=== PATIENT | female | born 1975 | race Caucasian/White ===

== ENCOUNTER 2017-12-06 10:58 | Emergency (ER) | payer BC, MEDICAID, SELFPAY ==
[2017-12-06 11:02] VITALS: BP 131/86; PULSE 90; RESP 16; TEMP 36.6; O2SAT 98
--- NOTE | 2017-12-06 12:25 | W.ED.GENAD ---
Discharge Plan Disposition Patient Disposition: HOME Condition: Stable Discharge Details Chief Complaint: RespSymp Clinical Impression: Infection, respiratory tract, Sinusitis Primary Care Provider: NONE,NONE ED Provider: Santosh Narayan Home Meds and New Rx's Prescriptions: New doxycycline hyclate 100 mg capsule 100 mg PO BID Qty: 14 RF: 0 Discharge Instructions Instructions: Sinusitis (ED), Upper Respiratory Infection (ED) Additional Instructions: Feel free to return to the emergency department for any new or worsening symptoms otherwise take your medication as prescribed. You may take [id number] cough and cold medication to help relieve your symptoms. If not improving towards the end of the antibiotics please follow-up with primary care provider for reassessment or return to the emergency department as needed. Referrals: Primary Care Provider [Outside] (As needed for reassessment ) Discharge Data Discharge Date/Time-TO BE ENTERED AT DEPARTURE: 12/06/17 12:40 Medical Decision Making Patient presenting to the emergency department for chief complaint of cough, nasal congestion, chills. Patient states that she has had a intermittent cough for 3 months but over the last 3 weeks she has had worsening nasal congestion, sinus pressure, and productivity to her cough. Patient states chills but has not measured any fever but has not felt well. Physical exam shows sinus tenderness, significant nasal congestion, and otherwise unremarkable examination. I feel that patient has upper respiratory tract infection and due to the fact that this is been going on greater than 3 weeks with chills and worsening chest congestion that patient should be placed on antibiotic. Patient placed up on doxycycline to cover both sinusitis and possible lower respiratory tract infection but at this time I hear clear lung sounds and no other respiratory issues so do not feel that radiological imaging of the chest is warranted. Patient states that she does not have a primary care provider as she typically had seen [facility] for any of her complaints but is open to getting a primary care provider in the area. Patient placed on care management list to help arrange this but I do not feel that patient needs emergent follow-up for diagnosis of sinusitis/respiratory tract infection. After discussion of diagnosis and plan of care patient has no further needs, questions, or concerns and states clear understanding to return to the emergency department for any worsening symptoms. HPI General Mode of arrival: ambulatory. Date/Time Provider Initiated Documentation: 12/06/17 11:46. Limitations to Documentation: no limitations. Information obtained by: patient. History of Present Illness 42 year old F presents to the emergency department with the chief complaint of Sinus infection,cough, described as moderate, with intensity rated at 7. Quality is described as dull and other (pressure), and is localized to the head. Patient reports no radiation. Patient started experiencing this week(s) (3) and it has been constant. No exacerbating factors reported . Patient did receive the following treatments prior to arrival, other (TheraFlu) Related Data Home Medications Medication Instructions Recorded Confirmed doxycycline hyclate 100 mg PO BID #14 cap 12/06/17 Previous Rx's Medication Instructions Recorded doxycycline hyclate 100 mg PO BID #14 cap 12/06/17 Allergies Allergy/AdvReac Type Severity Reaction Status Date / Time No Known Allergies Allergy Unverified 12/06/17 11:05 General Stated Complaint: RespSymp DEMARCO: 4 Review of Systems Constitutional Denies body ache(s), Reports chills, Denies fever(s), Reports headache(s) and Reports malaise Eyes Denies eye discharge ENT Reports headache(s), Reports nasal congestion, Reports nasal discharge, Denies neck pain, Reports sinus pain, Reports sinus pressure and Denies throat swelling Cardiovascular Denies chest pain and Denies dyspnea Respiratory Reports chest congestion, Reports cough and Denies dyspnea Musculoskeletal Denies joint swelling and Denies neck pain Integumentary/Breasts Denies rash Neurologic Reports headache(s) Allergic/Immunologic Denies throat swelling [facility] Medical History GERD (gastroesophageal reflux disease) (Chronic) Social History Smoking/Tobacco Use Status: Never Exam Const General: cooperative, comfortable and no acute distress Orientation: alert and awake [facility] Head: normal to inspection, normocephalic and atraumatic Ears: hearing grossly normal bilaterally and TM's normal bilaterally General nose exam: external nose normal Face and sinus: no erythema and sinus tenderness frontal and maxillary Mouth: oral mucosae normal, no drooling, no muffled voice and no trismus Throat: posterior oropharynx normal Neck Neck: normal visual inspection, full ROM, no lymphadenopathy, no meningeal signs, trachea midline and supple Resp Effort & Inspection: normal respiratory effort and able to speak in complete sentences Auscultation: clear to auscultation bilaterally Cardio Rate: regular rate Rhythm: regular rhythm Heart Sounds: S1 normal, S2 normal, normal S1 and S2, no click, no gallops, no murmurs and no rubs Skin General skin exam: no rashes or lesions noted and dry skin (warm) Neuro General: alert, awake, oriented x3, gait normal and moves all extremities Cognition: normal cognition Speech: speech normal Course Vital Signs Temperature 36.6 C 12/06/17 11:02 Pulse 90 12/06/17 11:02 Respiratory Rate 16 12/06/17 11:02 Blood Pressure 131/86 12/06/17 11:02 Pulse Oximetry 98 12/06/17 11:02 Temperature 36.6 C 12/06/17 11:02 Temperature Source Temporal Artery Scan 12/06/17 11:02 Pulse 90 12/06/17 11:02 Respiratory Rate 16 12/06/17 11:02 Respiratory Effort 12/06/17 11:05 Blood Pressure 131/86 12/06/17 11:02 Blood Pressure Position Sitting 12/06/17 11:02 Pulse Oximetry 98 12/06/17 11:02 Oxygen Delivery Method Room Air 12/06/17 11:02 Oxygen Flow Rate 0 12/06/17 11:02
--- NOTE | 2017-12-07 09:56 | PDOC.ERCMPRO ---
Care Management Progress Note 12/07-Patricio SEO requested assistance with establishing primary care. No PCP f/u needed. Would like patient to be established in a month. 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 Referral faxed to [facility] this am.
--- NOTE | 2017-12-07 09:57 | CMPROGNOTE_ITS ---
Care Management Progress Note 12/07-Patricio SEO requested assistance with establishing primary care. No PCP f/u needed. Would like patient to be established in a month. 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 Referral faxed to [facility] this am.
== END 2017-12-06 12:40 | disposition home or self-care (01) ==
PROVIDERS: Emergency Provider Nurse Practitioner Family
DX: J06.9 Acute upper respiratory infection, unspecified (principal); J01.90 Acute sinusitis, unspecified
CPT/HCPCS: 99283

== ENCOUNTER 2018-11-23 16:24 | Outpatient (REF) | payer BC, MEDICAID, SELFPAY ==
--- NOTE | 2018-11-23 15:15 | PAPFT_PTH ---
PATIENT: Melissa Barajas LOC: [facility] U#:[id number] AGE/SX: 43/F ROOM: RE11/23/[address]: MITCHELL Lazo : 1975 BED: DIS: 11/23/2018 SPEC #: [id number] RECD: 11/23/18 16:27 STATUS: JESICA REMoses #: [id number] ELIZABETH: 11/23/18 15:[address]: Sonya Perales DEPT: [facility] Cytology RECD BY: Jennifer Barbosa ENTERED: 11/23/18 16:27 SP TYPE: PAPFT JAKE DR: None Tissues: 1 - CX/ENDOCX FOR PAP SMEARS Procedures: PAP THIN PREP/UVM Screening HPV DNA PROBE Comments: [id number]
== END 2018-11-23 16:44 ==
LOC: LBN 16:24
PROVIDERS: Visit Provider Nurse Practitioner Family
DX: Z12.4 Encounter for screening for malignant neoplasm of cervix (principal); Z11.51 Encounter for screening for human papillomavirus (HPV)
CPT/HCPCS: 88142; 87624

== ENCOUNTER 2018-12-28 00:36 | Outpatient (CLI) | payer BC, MEDICAID, SELFPAY ==
--- NOTE | 2018-12-28 15:44 | DI.MAMMO_ITS ---
EXAM: MAMMO SCREENING CLINICAL HISTORY: screening TECHNIQUE: Mammograms were interpreted according to the usual protocol including computer analysis w [employer] CAD system, tomosynthesis and C-view imaging. COMPARISON: None. This is a baseline examination. FINDINGS: The breasts are composed of heterogeneously dense fibroglandular densities, Breast Density category C . No suspicious masses or suspicious microcalcifications are seen. There are innumerable partially obs cured circumscribed nodules in both breasts, right greater than left. The findings likely represent cysts. Ultrasound is recommended for further evaluation to exclude an underlying suspicious solid ma ss. No skin thickening or abnormal axillary lymph nodes are seen. IMPRESSION: BI-RADS Cat 0 - Assessment Incomplete: Need additional imaging evaluation Bilateral breast ultrasound is recommended for further evaluation of multiple areas of nodularity. BREAST DENSITY: The mammogram demonstrates the patient's breast tissue is dense. Dense breast tissue is very common and is not abnormal but dense breast tissue can make it harder to find cancer on a ma mmogram. Also, dense breast tissue may increase their breast cancer risk. This information about the result of the mammogram report was provided to the patient to raise their awareness. Use this report when you speak with the patient about their risks for breast cancer, which includes their family hist ory. At that time, you may recommend for more screening tests (Ultrasound or MRI) as they might be us eful based on their risk. A negative radiographic report should not delay biopsy if a dominant or clinically suspicious mass is present. Up to ten percent of cancers are not identified on mammography. A negative report may reinforce clinical impression. Adenosis and dense breasts may obscure an underlying neoplasm. False positive reports average 6 to 10%.
== END 2018-12-28 00:56 ==
PROVIDERS: Visit Provider Nurse Practitioner Family
DX: Z12.31 Encounter for screening mammogram for malignant neoplasm of breast (principal); R92.8 Other abnormal and inconclusive findings on diagnostic imaging of breast
CPT/HCPCS: 77063; 77067

== ENCOUNTER 2019-01-11 00:52 | Outpatient (CLI) | payer BC, MEDICAID, SELFPAY ==
--- NOTE | 2019-01-11 14:00 | DI.US_ITS ---
EXAM: US BREAST RT COMPLETE CLINICAL HISTORY: PARTIALLY OBSCURED NODULES ON BOTH BREASTS TECHNIQUE: Ultrasound performed using standard protocol. COMPARISON: MAMMO SCREENING from 12/28/2018 FINDINGS: All 4 quadrants of the right breast were evaluated sonographically. There are 2 simple cysts seen in the right breast. The largest is at the 12 o'clock position 2 centimeters from the nipple. It bruce ures 1.3 x 0.9 x 1.0 centimeters. No suspicious cystic or solid masses are seen in the right breast. IMPRESSION: Right breast cysts.
--- NOTE | 2019-01-11 14:00 | DI.US_ITS ---
EXAM: US BREAST LT COMPLETE CLINICAL HISTORY: PARTIALLY OBSCURED NODULES ON BOTH BREASTS TECHNIQUE: Ultrasound performed using standard protocol. COMPARISON: MAMMO SCREENING from 12/28/2018 FINDINGS: All 4 quadrants of the left breast were evaluated sonographically. No suspicious cystic or solid mas ses are seen sonographically in the left breast. Several unremarkable ducts are seen in the left shawanda ast. IMPRESSION: No suspicious cystic or solid masses. The findings were discussed with the patient on the date of the examination.
== END 2019-01-11 01:12 ==
PROVIDERS: Visit Provider Nurse Practitioner Family
DX: Z12.31 Encounter for screening mammogram for malignant neoplasm of breast (principal); R92.8 Other abnormal and inconclusive findings on diagnostic imaging of breast; N60.11 Diffuse cystic mastopathy of right breast; N60.82 Other benign mammary dysplasias of left breast
CPT/HCPCS: 76642

== ENCOUNTER 2020-02-06 03:21 | Outpatient (CLI) | payer MEDICAID, SELFPAY ==
--- NOTE | 2020-02-06 09:30 | DI.MAMMO_ITS ---
EXAM: MG MAMMO SCREENING CLINICAL HISTORY: screening. TECHNIQUE: Bilateral full field digital CC and MLO mammographic images were obtained with 3D tomosyn thesis and utilizing computer aided detection (CAD). COMPARISON: Prior baseline mammogram performed December 2018. Breast ultrasound December 2018 also reviewed. FINDINGS: The fibroglandular tissue is again noted to be dense which decreases the sensitivity of the mammogram for finding in underlying lesions. There is a new nodular density in the right breast measuring approximately 11 x 10 millimeters, best seen on the 3D MLO view located 3 centimeters above the nipple, approximately 12 o'clock position. O ther smaller densities also noted. In the opposite-left breast there is also suggestion a lobulated nodular density 12 o'clock position measuring approximately 1.4 by 0.8 centimetres. Benign-appearing microcalcifications noted both breasts. No obvious malignant-appearing microcalcification groups. There is no new architectural distortion nor skin thickening-retraction. IMPRESSION: Dense bilateral fibroglandular tissue. Bilateral nodules. Bilateral breast ultrasound recommended t o determine if these are solid or cystic.. BI-RADS Category 0 - Assessment Incomplete: Need additional imaging evaluation Breast Density - Category C - Heterogeneously dense Breast density Category C or D implies that the patient has dense breast tissue. Dense breast tissue can make it harder to find cancer on a mammogram. Dense breast tissue is also associated with an incr eased risk of breast cancer. This information about the result of the mammogram report was provided to the patient to raise their awareness. Use this report when you speak with the patient about their risks for breast cancer, which includes their family history. At that time, you may recommend additional screening tests (Ultrasoun d or MRI) as these tests may add significant information. A negative radiographic report should not delay biopsy if a dominant or clinically suspicious mass is present. Up to ten percent of cancers are not identified on mammography. A negative report may reinforce clinical impression. Adenosis and dense breasts may obscure an underlying neoplasm. False positive reports average 6 to 10%. Patient will receive a letter notifying them of these results.
== END 2020-02-06 03:41 ==
PROVIDERS: Visit Provider Nurse Practitioner Family
DX: Z12.31 Encounter for screening mammogram for malignant neoplasm of breast (principal); N63.20 Unspecified lump in the left breast, unspecified quadrant; N63.10 Unspecified lump in the right breast, unspecified quadrant
CPT/HCPCS: 77063; 77067

== ENCOUNTER 2020-02-14 03:55 | Outpatient (CLI) | payer MEDICAID, SELFPAY ==
--- NOTE | 2020-02-14 | DI.US_ITS ---
EXAM: US BREAST RT LIMITED and U/S breast LT limited CLINICAL HISTORY: F/U MAMMO, NEW NODULAR DENSITY TECHNIQUE: Ultrasound right and left breasts performed using standard protocol. COMPARISON: US US BREAST LT LIMITED from 02/14/2020 FINDINGS: Right breast ultrasound: Numerous simple cysts are seen at the 12 o'clock position of the right breas t. The largest measures 1.5 cm. This cyst corresponds to the mammographic abnormality. This was pr esent on the prior examination dated 01/11/2019. No suspicious cystic or solid masses are seen sonog raphically. Left breast ultrasound: There are numerous cysts seen in the left breast at the 12 o'clock position. They appear simple. The largest cyst measures 1.0 cm. The collection appears to correspond to the mammographic abnormality. No suspicious cystic or solid masses are seen sonographically. IMPRESSION: No evidence for malignancy. Multiple breast cysts. Yearly mammography is recommended. Findings wer e discussed with the patient on the date of the examination. BI-RADS Category 2 - Benign Findings DATA REPOSITORY:
== END 2020-02-14 04:15 ==
PROVIDERS: Visit Provider Nurse Practitioner Family
DX: R92.8 Other abnormal and inconclusive findings on diagnostic imaging of breast (principal); N60.02 Solitary cyst of left breast; N60.01 Solitary cyst of right breast
CPT/HCPCS: 76642

== ENCOUNTER 2020-04-02 09:29 | Outpatient (REF) | payer MEDICAID, SELFPAY ==
[2020-04-02 14:08] LABS: HCT 44.4 % (36.0-46.0); HGB 15.2 g/dL (11.2-15.7)
[2020-04-02 14:59] LABS: Anion Gap 11.6 mmol/L (3-11); BUN 21 mg/dL (7-18); CO2 23.4 mmol/L (21.0-32.0); CREATININE 0.8 mg/dL (0.55-1.02); Calcium 9.6 mg/dL (8.5-10.1); Calculated LDL 130 mg/dL (<100); Chloride 104 mmol/L (98-107); Cholesterol 227 mg/dL (<200); Glucose 129 mg/dL (74-106); HDL Cholesterol 77 mg/dL (40-60); Potassium 4.4 mmol/L (3.5-5.1); Sodium 139 mmol/L (136-145); Triglyceride 104 mg/dL (<150)
== END 2020-04-02 09:30 | disposition home or self-care (01) ==
LOC: NCHCN 09:29
PROVIDERS: Visit Provider Physician Assistant
DX: Z00.00 Encounter for general adult medical examination without abnormal findings (principal); Z13.220 Encounter for screening for lipoid disorders; Z13.228 Encounter for screening for other metabolic disorders; Z13.0 Encounter for screening for diseases of the blood and blood-forming organs and certain disorders involving the immune mechanism
CPT/HCPCS: 80048; 80061; 85014; 85018

== ENCOUNTER 2020-04-17 17:53 | Outpatient (REF) | payer MEDICAID, SELFPAY ==
[2020-04-17 18:19] LABS: Hemoglobin A1C 5.5 % (<5.7)
== END 2020-04-17 17:54 | disposition home or self-care (01) ==
LOC: NCHCN 17:53
PROVIDERS: PCP Physician Assistant; Visit Provider Physician Assistant
DX: R73.09 Other abnormal glucose (principal)
CPT/HCPCS: 83036

== ENCOUNTER 2020-08-07 15:24 | Outpatient (REF) | payer MEDICAID, SELFPAY ==
[2020-08-09 22:17] LABS: COVID-19 RT-PCR UVMMC Result Positive (Negative)
== END 2020-08-07 15:25 | disposition home or self-care (01) ==
LOC: LBN 15:24
PROVIDERS: PCP Physician Assistant; Visit Provider Physician Assistant Medical
DX: Z20.822 Contact with and (suspected) exposure to COVID-19 (principal)
CPT/HCPCS: U0003

== ENCOUNTER 2020-12-21 16:34 | Outpatient (REF) | payer MEDICAID, SELFPAY ==
[2020-12-21 20:14] LABS: ALT 31 U/L (14-59); AST 19 U/L (15-37); Albumin 3.7 g/dL (3.4-5.0); Alkaline Phosphatase 51 U/L (46-116); Anion Gap 9.5 mmol/L (3-11); BUN 11 mg/dL (7-18); Bilirubin, Total 0.3 mg/dL (0.2-1.0); CO2 26.5 mmol/L (21.0-32.0); CREATININE 0.8 mg/dL (0.55-1.02); Calcium 8.9 mg/dL (8.5-10.1); Chloride 106 mmol/L (98-107); Glucose 126 mg/dL (74-106); Lipase 121 U/L (73-393); Potassium 3.4 mmol/L (3.5-5.1); Sodium 142 mmol/L (136-145); Total Protein 6.7 g/dL (6.4-8.2)
[2020-12-21 20:31] LABS: HCT 42.7 % (36.0-46.0); HGB 14.3 g/dL (11.2-15.7); MCH 32.4 pg (27.0-33.0); MCHC 33.5 % (32.0-36.0); MCV 96.8 fL (80-95); MPV 12.7 fL (8.0-11.0); Platelet Count 214 10^3/uL (130-400); RBC 4.41 10^6/uL (3.93-5.22); RDW 11.7 % (11.7-14.6); RDW-SD 41.9 fL; WBC 7.95 10^3/uL (4.4-10.8)
== END 2020-12-21 16:35 | disposition home or self-care (01) ==
LOC: NCHCN 16:34
PROVIDERS: PCP Physician Assistant; Visit Provider Physician Assistant
DX: R10.9 Unspecified abdominal pain (principal)
CPT/HCPCS: 80053; 83690; 85027

== ENCOUNTER 2021-01-01 02:32 | Outpatient (CLI) | payer MEDICAID, SELFPAY ==
--- NOTE | 2021-01-01 08:00 | DI.US_ITS ---
Exam(s) US ABDOMEN EXAM: US ABDOMEN CLINICAL HISTORY: ABD PAIN R10.9 RUQ AND EPIGASTRIC PAIN W/ BOWEL CHANGES R/O CHOLECYSTITIS TECHNIQUE: Ultrasound abdomen performed using standard protocol. COMPARISON: No exams were available for comparison FINDINGS: LIVER: Normal size. Mildly increased echogenicity consistent with fatty infiltration. No focal live r lesions are seen.. GALLBLADDER: No evidence of cholelithiasis. No evidence of wall thickening. No pericholecystic fluid identified. GILLESPIE'S SIGN: Negative. BILIARY SYSTEM: No intrahepatic or extrahepatic biliary ductal dilation. KIDNEYS: Kidneys are symmetric in size. No evidence of renal calculi. No evidence of hydronephrosis. No renal mass or cyst identified. PANCREAS: Normal where visualized. SPLEEN: Not enlarged. ABDOMINAL AORTA AND IVC: Visualized portions normal caliber. ASCITES: None seen. IMPRESSION: Mild hepatic steatosis, otherwise normal sonographic appearance of the upper abdomen. DATA REPOSITORY:
== END 2021-01-01 02:52 ==
PROVIDERS: PCP Physician Assistant; Visit Provider Physician Assistant
DX: R10.11 Right upper quadrant pain (principal); R10.13 Epigastric pain; R19.4 Change in bowel habit; K76.0 Fatty (change of) liver, not elsewhere classified
CPT/HCPCS: 76700

== ENCOUNTER 2021-02-01 02:55 | Outpatient (CLI) | payer MEDICAID, SELFPAY ==
[2021-02-01 13:06] LABS: Source Nasal/Nares
[2021-02-01 17:11] LABS: COVID-19 PCR Negative (Negative)
== END 2021-02-01 02:56 | disposition home or self-care (01) ==
LOC: LBO 02:55
PROVIDERS: PCP Physician Assistant; Visit Provider Surgery
DX: Z20.822 Contact with and (suspected) exposure to COVID-19 (principal)
CPT/HCPCS: 87635

== ENCOUNTER 2021-02-03 09:15 | Day surgery (SDC) | payer MEDICAID, SELFPAY ==
--- NOTE | 2021-02-02 14:10 | W.ANESPRE ---
General Info Date of Service Date Performed: 02/03/21 Height: 5 ft 4 in Weight: 70.364 kg Body Mass Index (BMI): 26.6 Surgical Procedure: Operation Date: 02/03/21 11:05 Proposed Procedures Side Surgeon p Colonoscopy/Gastroscopy Emily Sanchez MD Meds Allergies and Home Medications Allergies Allergy/AdvReac Type Severity Reaction Status Date / Time No Known Drug Allergies Allergy Verified 02/03/21 09:34 Home Medication Medication Instructions Recorded pantoprazole 20 mg tablet,delayed 20 mg PO DAILY #90 tab 01/13/20 release Current Visit Medications: Current Medications Generic Name Dose Route Start Last Admin Trade Name Freq PRN Reason Stop Dose Admin Ringer's Solution 1,000 mls @ 80 mls/hr 02/03/21 06:00 IV 03/04/21 23:59 INFUSION ALPA IV Miscellaneous Supplies 1 each 02/03/21 06:00 Iv Access IV 03/04/21 23:59 DIRECTED ALPA Sodium Chloride 0 ml 02/03/21 06:00 Normal Saline Flush 10 Ml Syr IV 03/04/21 23:59 PRN PRN Sodium Chloride 0 ml 02/03/21 06:00 Normal Saline 10 Ml Vial IJ 03/04/21 23:59 DIRECTED PRN Sterile Water 0 ml 02/03/21 06:00 Water,Injection,Sterile 10 Ml Vial IJ 03/04/21 23:59 DIRECTED PRN PFSH Active Problems Active Problems: Problem Status Onset Code Encounter for colorectal cancer screening Z12.11, Z12.12 Elevated blood sugar R73.9 Abdominal pain R10.9 Medical History Active Problem List Elevated blood sugar (Acute) Abdominal pain (Acute) Medical History Alopecia areata GERD (gastroesophageal reflux disease) Surgical History Surgical History History of 2 sections History of hysterectomy supracervical History of hysterectomy, supracervical S/P tubal ligation Tobacco Smoking/Tobacco Use Status: Never Alcohol Alcohol Intake: current Alcohol intake frequency: a few times a month Substance Use Substance use: Never Substance use type: does not use Vital Signs and Lab Results Vital Signs Most Recent Vital Signs in EMR: Temp Pulse Resp BP Pulse Ox 36.4 C L 79 16 141/92 H 100 02/03/21 09:35 02/03/21 09:35 02/03/21 09:35 02/03/21 09:35 02/03/21 09:35 Lab Results Blood Type / Crossmatch: No Data to Display Complete Blood Count: No Data to Display Complete Metabolic Panel: No Data to Display Liver Function Panel: No Data to Display Coagulation Panel: No Data to Display Cardiac Panel: No Data to Display Arterial Blood Gas: No Data to Display Venous Blood Gas: No Data to Display Pancreas Panel: No Data to Display Thyroid Panel: No Data to Display Infectious Disease: Coronavirus (COVID-19)(PCR) Negative (Negative) 02/01/21 10:17 02/01/21 Coronavirus 2019 Source Nasal/Nares 02/01/21 10:17 02/01/21 Blood Cultures: No Data to Display Toxicology Panel: No Data to Display Panel: No Data to Display Anesthesia Assessment and Plan Anesthesia History Personal History: No History of Anesthesia Complications Family History: No Family History of Anesthesia Complications Exercise Tolerance Exercise Tolerance: Metabolic Equivalents>4 Cardiac & Pulmonary Exam Cardiac Exam: Normal S1/S2 Heart Sounds Pulmonary Exam: Clear Bilateral Breath Sounds Implantable Cardiac Device Does patient have a Pacemaker or an ICD?: No Airway Exam Known Difficult Airway: No Mallampati Class: 2 Mouth Opening: Normal (> 3cm) Thyromental Distance: Greater than 3 cm Neck Range of Motion: Full ROM Neck Circumference: Normal Teeth Condition: Normal Dentition ASA Classification ASA Score: ASA 2 Emergency Case?: No NPO Status NPO Status: NPO Clears >2 hours, Solids >8 hours Status Status: History of Hysterectomy Anesthesia Plan Resuscitation Status: Full Code Anesthesia Technique: General Anesthesia Airway Planned: Natural Airway Monitors Used: Standard Monitors Preoperative Comments:: 45 yo female for colo/egd. Sig PMHx: never smoker, occ EtOH, GERD (patoprazole) Previous Anes: jorgensen 2 grade 1, easy mask.
--- NOTE | 2021-02-03 06:43 | ENDO_ITS ---
Date of service: 02/03/21 Time of Service: 10: Endoscopy Report DATE OF PROCEDURE: 02/03/21 PRE-OP DIAGNOSIS: Abdominal pain and screening colonoscopy PROCEDURE: 1. EGD with biopsies 2. Colonoscopy SURGEON: Emily Sanchez ANESTHESIA TYPE: General:No Airway COMPLICATIONS: None DISPOSITION: same day INDICATIONS: Ms Barajas pleasant 45-year-old female with some upper abdominal pain that is intermittent. It does not seem to be related to food. She does have some bloating as well. Does have history of GERD which seems to be controlled with pantoprazole 20 mg daily. The differential includes biliary dyskinesia, versus gastritis. I recommend doing an upper endoscopy with biopsies. If this is negative then I will order HIDA scan to see if we can figure out why she is having this upper abdominal pain. Ms. Barajas is also due for colonoscopy so this would be a good time to do it. Both upper endoscopy and colonoscopy procedures were reviewed with her in detail. Risks and benefits and complications were reviewed. Risks, benefits and complications have been reviewed. Complications include but are not limited to bleeding, pain, perforation, missed small lesion/polyp, sore throat, aspiration and adverse reaction to the medications. Questions were entertained and answered to their satisfaction and they wished to proceed. No guarantees were given or implied. Proceed with colonoscopy and upper endoscopy under sedation PREP: Miralax/Dulcolax PROCEDURE START TIME: 10:26 PROCEDURE END TIME: 10:58 COLONOSCOPY RETRACTION TIME: 8 minutes FINDINGS: Inflammation of the stomach and esophagus Stomach polyps cecal polyps PROCEDURE DESCRIPTION: After informed consent was obtained the patient was take to the procedure room and placed in a supine position. Monitors were applied and a time out was done. The patients name, date of , procedure type, allergies to medications and metal in their body was reviewed. A bite block was placed and the patient was sedated. Once sedated and comfortable the gastroscope was advanced through the oropharynx which was grossly normal into the esophagus. The proximal and mid- esophagus were normal. In the distal esophagus there was inflammation noted. The scope was advanced into the stomach and through the pylorus into the 3rd portion of the duodenum. The duodenum was noted to be normal. The scope was retracted back into the stomach. There was moderate inflammation noted in the antrum and cardia. Biopsies were done to rule out H. pylori. There were no ulcers. The scope was retro-flexed. There were numerous flat polyps in the cardia and fundus. There was a small hiatal hernia noted. The scope was retracted back into the esophagus and biopsies were done of the GE junction to rule out Haque's. The Z line was regular. The GE junction was at 36 cm. While the patient was still sedated they were placed in a left decubitous position. A rectal exam was done. External exam was normal. Internal exam revealed a decreasedl sphincter tone and no palpable masses. The scope was then introduced and retro-flexed. NO internal hemorrhoids, masses or polyps were identified on retroflexion. The scope was then advanced to the cecum with some difficulty. The ileocecal valve and appendiceal orifice were identified. The prep was adequate. The scope was then slowly retracted over 8 minutes back into the rectum. Polyps were removed with cold forceps in the cecum. There was no diverticulosis noted. The scope was removed and the patient was woken up and taken back to Same day surgery in stable condition. The patient tolerated the procedure well and there were no immediate complications. Follow up: 2 weeks in the office
--- NOTE | 2021-02-03 06:44 | W.PM.DSUDISC ---
Discharge Plan Disposition Patient Disposition: HOME Condition: Good Discharge Details Reason For Visit: Colonoscopy and EGD Attending Provider: Emily Sanchez Primary Care Provider: Vladimir Moran Home Meds and New Rx's Prescriptions: New pantoprazole 40 mg tablet,delayed release (DR/EC) 40 mg PO DAILY Qty: 90 RF: 0 Discontinued pantoprazole 20 mg tablet,delayed release (DR/EC) 20 mg PO DAILY Qty: 90 RF: 0 Discharge Instructions Instructions: Diet for Stomach Ulcers and Gastritis (ED), Gastric Polyps (DC), Gastritis (DC), Esophagitis (DC), Colorectal Polyps (DC) Additional Instructions: Findings: Inflammation of the stomach and esophagus Small cecal polyp Follow up: 5 years Please call if you develop: fevers >101.5 Nausea or Vomiting Abdominal pain that is not transient Rectal bleeding that is more then a tbsp A hard abdomen and inability to pass gas DAY SURGERY UNIT POST ENDOSCOPY INSTRUCTIONS Instructions for everyone who is given Anesthesia: For your safety, please do the following for the next 24 Hours: a. Do not drive or operate dangerous equipment b. Do not drink alcohol beverages or use any recreational drugs for the first 24 hours or while taking pain medications. The medications in your body may have a reaction that can be dangerous. c. Do not make any important decisions or sign any important papers 1. Generally there are no restrictions on your activity after a day or so has gone by, but you may feel a bit fatigued for a few days. 2. After you arrive home you may have a light meal and return to a normal diet as you can tolerate it without feeling sick to your stomach. 3. After surgery, you may feel pain or discomfort. This should be only transient, but if it persists please contact your doctor. 4. If there are any questions regarding the findings of your procedure, please feel free to contact your doctor. 6. If you are unable to contact your doctor with a problem, contact the hospital at [phone]. 7. Continue all your regular medications unless directed otherwise. I understand the above instructions and have no questions. Signature of Patient or Responsible Adult Escort Date/Time Name of Responsible Adult Escort Signature of Nurse Date/Time Activity:: Activity as Tolerated Diet:: low acid Discharge Orders Discharge Orders: Discharge Order (Routine); Ordered 02/03/21 Ordered By: Emily Sanchez
[2021-02-03 09:35] VITALS: BP 141/92; PULSE 79; RESP 16; TEMP 36.4; O2SAT 100
[2021-02-03] MEDS: Lactated Ringers 1,000 ML 80 ML IV (10:02)
[2021-02-03 10:13] VITALS: BMI 26.6
--- NOTE | 2021-02-03 10:29 | STOM_PTH ---
PATIENT: Melissa Barajas LOC: [facility] U#:[id number] AGE/SX: 45/F ROOM: RE02/03/[address]: Emily Sanchez MD : 1975 BED: DIS: 02/03/2021 SPEC #: [id number] RECD: 02/03/21 12:46 STATUS: JESICA REQ #: [id number] ELIZABETH: 02/03/21 10:[address]: Emily Sanchez DEPT: Surgical Specimen RECD BY: Jennifer Barbosa ENTERED: 02/03/21 12:47 SP TYPE: STOMACH OTHR DR: Vladimir Moran Tissues: 1 - STOMACH BIOPSY 2 - STOMACH BIOPSY 3 - ESOPHAGUS BIOPSY 4 - BIOPSY BOWEL Procedures: GROSS AND MICRO LEVEL 4 Comments: [id number]
[2021-02-03 11:08] VITALS: BP 144/68; PULSE 82; RESP 16; TEMP 36.8; O2SAT 99
[2021-02-03 11:38] VITALS: BP 148/74; PULSE 67; RESP 16; TEMP 36.7; O2SAT 100
--- NOTE | 2021-02-03 11:42 | W.ANESPOSTOP ---
Postoperative Evaluation Date, Time and Location Date Performed: 02/03/21 Time Performed: 11:42 Patient Location: Day Surgery Unit Vital Signs Most Recent Imported Vital Signs: Most Recent Vital Signs Temp Pulse Resp BP Pulse Ox 36.7 C 67 16 148/74 H 100 02/03/21 11:38 02/03/21 11:38 02/03/21 11:38 02/03/21 11:38 02/03/21 11:38 Pain Score Most Recent Pain Score: Most Recent Pain Score Pain Level 0 02/03/21 11:38 Assessment Mental Status: Awake (Alert & Oriented to Patient Baseline) Airway and Respiratory Function: Patent airway with normal (patient baseline) respiratory exam Cardiovascular Function: Hemodynamically Stable Hydration Status: Adequately Hydrated Nausea & Vomiting: No Nausea or Vomiting Pain: Pt. Denies Any Pain Peripheral Nerve Block: Patient did not receive a nerve block
== END 2021-02-03 12:10 | disposition home or self-care (01) ==
PROVIDERS: PCP Physician Assistant; Visit Provider Surgery
PROC: (CPT 45380; principal; 2021-02-03 11:00)
DX: Z12.11 Encounter for screening for malignant neoplasm of colon (principal); D12.0 Benign neoplasm of cecum; K44.9 Diaphragmatic hernia without obstruction or gangrene; K31.7 Polyp of stomach and duodenum; R10.9 Unspecified abdominal pain
CPT/HCPCS: 45380; 43239; 88305; J2001; J2704

== ENCOUNTER 2021-03-26 01:55 | Outpatient (CLI) | payer MEDICAID, SELFPAY ==
--- NOTE | 2021-03-26 06:30 | DI.NM_ITS ---
Exam(s) NM HEPATOBILIARY CCK GRP EXAM: NM HEPATOBILIARY CCK GRP CLINICAL HISTORY: RUQ/Epigastric pain, neg EGD,r10.10. TECHNIQUE: Injected dose: 4.8 mCi Tc-99 mebrofenin Initial dynamic images: 60 minutes Post-Gallbladder fillin.1 mcg CCK administered intravenously a according to protocol. Addition images: According to protocol. COMPARISON: US US ABDOMEN from 01/01/2021 FINDINGS: Normal hepatic transit time. Prompt excretion into the small bowel. Prompt excretion into the gallbladder. The patient exhibited no symptoms during the CCK infusion. T he gallbladder ejection fraction was 84 percent which is within normal limits. IMPRESSION: 1. No evidence of acute cholecystitis or acalculous disease. 2. Normal CCK HIDA examination. SN guidelines: Gallbladder visualization should be present by 3 hours. Delayed mdfgwvx-hu-fmfet jones sit beyond 60 min raises the suspicion for partial common bile duct (CBD) obstruction. Gallbladder ejection fraction <35% has a good correlation with acalculous disease (i.e., chronic acal culous cholecystitis, cystic duct syndrome, sphincter of Oddi disease).
== END 2021-03-26 02:15 ==
PROVIDERS: PCP Physician Assistant; Visit Provider Surgery
DX: R10.10 Upper abdominal pain, unspecified (principal)
CPT/HCPCS: 78227

== ENCOUNTER → 2021-09-15 00:29 | Outpatient (CLI) | payer MEDICAID, SELFPAY ==
--- OUTSIDE RECORDS SUMMARY | 2021-09-15 00:30 | XMS_ITS | Encounter Summary ---
:1975 Author Organization [facility] [place] [address] Care Team Providers Name Role Phone None Primary Care Provider Unavailable Encounter Details Date Type Department Care Team Description 07/28/2021 Telephone Dermatology at [facility] Didier Husain MD [address] [facility] [place] [address] [facility] [phone] [place], [place] [address] (Wo rk) Social History Tobacco Use Types Packs/Day Years Used Date Never Smoker Smokeless Tobacco: Never Used Sex Assigned at Date Recorded Not on file documented as of this encounter Miscellaneous Notes Telephone Encounter - Mo Modi LPN - 07/30/2021 3:17 PM EDT Received the insurance benefit check back from [facility] about laser treatments for alopecia areata. [place] medicaid [place] ra laser treatment of alopeica areata. Not a covered benefit / diagnosis. MO MODI LPN Telephone Encounter - Mo Modi LPN - 07/28/2021 4:00 PM EDT PA and benefit check submitted today 07/28/21 to [facility]. Excimer uvb laser treatments ordered by Didier Centeno MD for alopecia areata. MO MODI LPN documented in this encounter Plan of Treatment Upcoming Encounters Date Type Specialty Care Team Description 10/04/2021 Office Visit Dermatology Didier Centeno MD [facility] [address] [place], [place] [address] (Wo rk) documented as of this encounter Visit Diagnoses Not on filedocumented in this encounter Care Teams Refrigeration Insulator Relationship Specialty Start Date End Date None PCP - General 04/09/21 None documented as of this encounter
--- OUTSIDE RECORDS SUMMARY | 2021-09-15 00:30 | XMS_ITS | Encounter Summary ---
:1975 [place] [address] Care Team Providers Name Role Phone Unavailable Primary Care Provider Unavailable Encounter Details Date Type Department Care Team Description 02/25/2021 [facility] [address] [facility] [place] [address] [place] [address] [phone] (Wo rk) Social History Tobacco Use Types Packs/Day Years Used Date Never Smoker Smokeless Tobacco: Never Used Sex Assigned at Date Recorded Not on file documented as of this encounter Progress Notes Didier Centeno MD - 02/25/2021 4:15 PM EST Images from the original note were not included. DEPARTMENT OF DERMATOLOGY Medical Dermatology Clinic Provider: Didier Centeno MD FAAD at Dermatology [facility] Patient's preferred name Melissa PAST MEDICAL HISTORY Melanoma Dysplastic nevi SCC BCC [place] [] cryotherapy [] efudex [] PDT [] Other Relevant Medications [] Immunosuppression [] Oncogenic medication [] Nicotinamide Other relevant history Alopecia Areata - ILK FAMILY HISTORY Melanoma NMSC Other relevant history SOCIAL HISTORY History of Present Illness: Melissa MONTGOMERY is 45 y.o. and here for the following: ??? History of alopecia areata s/p ILK here for follow-up. Tolerated ILK well. Possible improvement but cannot see. Antecedent History: History of patch??of spreading but asymptomatic hair loss on the left side of the scalp since Oct 2015. No known triggers. No history of autoimmune disorders. Never been biopsied.??Treated with ILK with excellent response.?? Medications: Reviewed in eD-H Allergies: Reviewed in eD-H Skin Examination Standby: Shanique Rosales LPN Well developed, well-nourished in no apparent distress, alert and oriented to time, person, place and situation. Focused examination of the skin of the scalp significant for the following: Exam Findings/Assessment/Plan Alopecia Areata Non-scaring 25 x 20mm and 10 x 10 mm patches of alopecia of the midline occipital scalp; similar 25 x 25 mm patch of non-scaring alopecia on the left parietal scalp. New villis and terminal hairs sincelast visit. Slight improvement. No atrophy. Recommend repeat ILK; reviewed major risks of skin atrophy. Answered all questions. Joint decision to treat with Kenalog ?? Total 3 sites treated with Kenalog 10mg/ml [Lot# [id number]/ Exp APR 2022], total 1.5 ml after verbally discussing the disease and treatment options, Kenalog IL method, expected results/course and potential adverse effects, including pain, dyspigmentation, atrophy, and recurrence. Patient verbally agre ed. Area prepped with alcohol. Blanching noted. Hemostasis achieved with drysol, as needed. Post-procedure pain 0/10. Patient tolerated well with no complications. Wound care instructions provided. Follow-up: 6 weeks for Alopecia F/U. Return sooner as needed for suspicious lesion, new or worseningdermatitis. [] Recall placed [] Forwarded to textile machine maintenance mechanic [x] Patient scheduled before exiting Scribe attestation: Shanique Rosales LPN has performed the documentation for this encounter in the presence of and acting as a scribe for MD LAWSON Regalado. I performed the above scribed service and agree with the accuracy of the documentation in this encounter. Reviewed and signed by: MD LAWSON Regalado Dermatology [facility] documented in this encounter Plan of Treatment Upcoming Encounters Date Type Specialty Care Team Description 10/04/2021 Office Visit Dermatology Didier Centeno MD [facility] [address] [place], [place] [address] (Wo rk) documented as of this encounter Visit Diagnoses Diagnosis Alopecia areata documented in this encounter
--- OUTSIDE RECORDS SUMMARY | 2021-09-15 00:30 | XMS_ITS | Clinical Summary ---
:1975 Author Organization [facility] [place] [address] Care Team Providers Name Role Phone None Primary Care Provider Unavailable Allergies No known active allergies Medications Medication Sig Dispensed Refills Start Date End Date Status pantoprazole EC TAKE 1 TABLET BY 0 02/03/2021 Active (Protonix) 40 mg MOUTH DAILY Tablet, Delayed Release (E.C.) amLODIPine (Norvasc) 10 Take 10 mg by 0 06/22/2021 Active mg Tablet mouth daily. Active Problems No known active problems Encounters Date Type Specialty Care Team Description 08/17/2021 Office Visit Dermatology Didier Centeno MD Alopec ia areata 07/28/2021 Telephone Dermatology Didier Centeno MD 07/20/2021 Office Visit Dermatology Didier Centeno MD Alopec ia areamable from Last 3 Months Social History Tobacco Use Types Packs/Day Years Used Date Never Smoker Smokeless Tobacco: Never Used Sex Assigned at Date Recorded Not on file Plan of Treatment Upcoming Encounters Date Type Specialty Care Team Description 10/04/2021 Office Visit Dermatology Didier Centeno MD [facility] [address] [place], [place] [address] (Wo rk) Health Maintenance Due Date Last Done Comments Covid-19 Vaccine (#1) 1978 HIV screen 10/25/1991 Hepatitis C Screening 10/25/1991 Tdap adult 1992 Tetanus vaccine 1992 HPV test 10/25/2003 Breast Cancer Share Decision Needed 2013 PAP Smear 06/17/2015 06/16/2010 Colonoscopy 2018 Influenza (Flu) vaccine (1 of - Influenza standard 10/28/2021 series) Insurance Payer Benefit Plan / Subscriber ID Effective Dates Phone Addre ss Type Group [place] [id number] 2019-Patrick [phone] [address] [place] [address] Care Teams District Sales Coordinator Relationship Specialty Start Date End Date None PCP - General 04/09/21 None
--- OUTSIDE RECORDS SUMMARY | 2021-09-15 00:30 | XMS_ITS | Encounter Summary ---
:1975 Author Organization [facility] [place] [address] Care Team Providers Name Role Phone Laquita Hernandez MD Primary Care Provider Reason for Visit Reason Comments Follow-up Encounter Details Date Type Department Care Team Description 08/01/2018 Office Visit Dermatology at [facility] Didier Centeno, Cedric Clark MD (Primary Dx) [address] [place] [address] [address] [phone] [facility] [place], [place] [address] Social History Tobacco Use Types Packs/Day Years Used Date Never Smoker Smokeless Tobacco: Never Used Sex Assigned at Date Recorded Not on file documented as of this encounter Progress Notes Didier Centeno MD - 08/01/2018 3:45 PM EDT Images from the original note were not included. Dermatology [place], [place] FOLLOW-UP Chief Complaint: Alopecia areata f/u - new spot History of Present Illness Melissa MONTGOMERY is a 42 y.o. female who presents with the following concerns: History of alopecia areata, s/p ILK with good response in the past. Patient notes onset of hair lossthat was first identified approximately a month ago by her hairstylist, thus patient returns for re-treatment of alopecia with ILK. Antecedent History: History of patch of spreading but asymptomatic hair loss on the left side of thescalp since Oct 2015. Started as a small bald patch. No symptoms. Some new growth in areas but spreading towards the back of the head. No redness or scale. No other areas of involvement. No known triggers. No history of autoimmune disorders. Never been treated or biopsied. Interval changes to Medications and Medical, Family and Social Histories (including alcohol and tobacco use) Since Last Visit 07/11/2017. No significant interval history. Skin Cancer History No personal history of skin cancer No family history of skin cancer Allergies Patient has no known allergies. Medications currently has no medications in their medication list. Social History Tobacco: never Alcohol: Occasionally Review of Systems Significant for no pertinent and acute changes in constitutional, other skin systems upon specific queries. Examination Standby: Mk Worthy Mood is appropriate. Well developed, well-nourished in no apparent distress, alert and oriented to time, person, place and situation. Focused skin examination of the scalp, significant for the following: ?? Nonscarring, 2.5 x 4 cm patch of alopecia on the midline occipital scalp Assessment and Plan Alopecia Areata Counseled: alopecia areata, autoimmune disease sometimes triggered by stress and a/w other autoimmune disorders, chronic and recurrent, and management with topical +/- IL steroids, excimer for localized patches, and systemic medications. Handout given. Answered all questions. ?? Total 1 treated with Kenalog 20 mg/ml (Lot #: [id number], Exp.: May 2019), total 1.0 ml after verbally discussing the disease and treatment options, Kenalog IL method, expected results/course and potential adverse effects, including pain, dyspigmentation, atrophy, and recurrence. Patient verbally agreed. Area prepped with alcohol. Blanching noted. Hemostasis achieved with drysol, as needed. Post-procedure pain 0/10. Patient tolerated well with no complications. Wound care instructions provided. Follow-up: in 3-4 weeks for alopecia follow-up or sooner as needed for worsening or new symptoms. Note initiated by KODY Carrasco has performed the documentation for this encounter in the presence of and acting as ascribe for Dr. Centeno. I performed the above scribed service and agree with the accuracy of the documentation in this encounter. Didier Centeno MD FAAD Section of Dermatology [facility] documented in this encounter Plan of Treatment Upcoming Encounters Date Type Specialty Care Team Description 10/04/2021 Office Visit Dermatology Didier Centeno MD [facility] ER [address] [place], [place] [address] (Wo rk) documented as of this encounter Visit Diagnoses Diagnosis Alopecia areata - Primary documented in this encounter Administered Medications Inactive Administered Medications - up to 3 most recent administrations Medication Order MAR Action Action Date Dose Rate Site triamcinolone acetonide Given 08/01/2018 4:24 PM EDT 40 mg (KENALOG-40) injection 40 mg 40 mg, Intra-Lesional, ONCE, 1 dose, On Mon08/01/18 at 1645, Routine documented in this encounter Care Teams Director Of Exhibits Relationship Specialty Start Date End Date Laquita Hernandez MD PCP - General Pediatrics 12/06/16 07/28/20 documented as of this encounter
--- OUTSIDE RECORDS SUMMARY | 2021-09-15 00:30 | XMS_ITS | Encounter Summary ---
:1975 Author Organization [facility] [place] [address] Care Team Providers Name Role Phone Laquita Hernandez MD Primary Care Provider Encounter Details Date Type Department Care Team Description 01/16/2017 Office Visit Dermatology at Alexx Aguilar MD Alopecia areata [facility] [address] [facility] [place] [address] [place] [address] [phone] (Wo rk) Social History Tobacco Use Types Packs/Day Years Used Date Never Smoker Smokeless Tobacco: Never Used Sex Assigned at Date Recorded Not on file documented as of this encounter Progress Notes Didier Centeno MD - 01/16/2017 4:00 PM EST Images from the original note were not included. Chief Complaint: Alopecia areata f/u - improved History of Present Illness Melissa MONTGOMERY is a 41 y.o. female. History of alopecia areata on the left parietal scalp s/p ILK 10mg/ml last visit with improvement - new terminal hairs. Tolerated ILK with no adverse effects. Antecedent History: History of alopecia areata on the left parietal scalp since Oct 2015. No rednessor scale. No other areas of involvement. No known triggers. No history of autoimmune disorders. Started ILK 10mg/ml Nov 2016. Never been biopsied. ? Denies Skin Cancer History No personal history of skin cancer. No family history of skin cancer. Allergies No Known Allergies Medications None Review of Systems Significant for no other pertinent and acute changes in constitutional, other skin systems upon specific queries. 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 Well developed, well-nourished in no apparent distress, alert and oriented to time, person, place and situation. Focused examination of the scalp, hair significant for the following: ?? 6 cm x 9 cm patch of nonscaring alopecia; 80% filled in with terminal of hairs but still slightlyhypodense Images Photo(s) taken by Rhonda Centeno MD. with patient's verbal permission for use for clinical and educationpurposes. 16 Jan 2017 06 Dec 2016 Assessment and Plan Alopecia Areata Improved. Reviewed: alopecia areata, autoimmune disease sometimes triggered by stress and a/w other autoimmunedisorders, chronic and recurrent. Recommend repeat ILK but could consider trial hiatus. Answered allquestions. Patient elects ILK. ?? Total 1 patch [10 injections] treated with Kenalog 10mg/ml [Lot # [id number] / EXP date April 2018],total 1.0 ml after verbally discussing the disease and treatment options, Kenalog IL method, expected results/course and potential adverse effects, including pain, dyspigmentation, atrophy, and recurrence. Patient verbally agreed. Area prepped with alcohol. Blanching noted. Hemostasis achieved with drysol, as needed. Post-procedure pain 0/10. Patient tolerated well with no complications. Wound care instructions provided. Follow-up: in 6-8 weeks or sooner as needed for worsening or new alopecia. Note initiated by MYRIAM BERMUDEZ LPN has performed the documentation for this encounter in the presence of and acting as a scribe for Dr. Centeno. I performed the above scribed service and agree with the accuracy of the documentation in this encounter. Didier Centeno MD FAAD Section of Dermatology [facility] documented in this encounter Plan of Treatment Upcoming Encounters Date Type Specialty Care Team Description 10/04/2021 Office Visit Dermatology Didier Centeno MD [facility] [address] [place], [place] [address] (Wo rk) documented as of this encounter Visit Diagnoses Diagnosis Alopecia areata documented in this encounter Administered Medications Inactive Administered Medications - up to 3 most recent administrations Medication Order MAR Action Action Date Dose Rate Site triamcinolone acetonide Given 01/16/2017 4:43 PM 10 mg 20-Other (document (KENALOG) injection 10 mg EST in comment sect ion) 10 mg, Intra-Lesional, ONCE, 1 dose, On 01/16/17 at 1700, Routine documented in this encounter Care Teams Cool Roofing Installer Relationship Specialty Start Date End Date Laquita Hernandez MD PCP - General Pediatrics 12/06/16 07/28/20 documented as of this encounter
--- OUTSIDE RECORDS SUMMARY | 2021-09-15 00:30 | XMS_ITS | Encounter Summary ---
:1975 Author Organization [facility] [place] [address] Care Team Providers Name Role Phone Laquita Hernandez MD Primary Care Provider Reason for Visit Reason Comments Skin Lesion Encounter Details Date Type Department Care Team Description 07/11/2017 Office Visit Dermatology at [facility] Alexx Centeno MD [facility] [address] [facility] [address] [place] [address] [phone] (Wo rk) Social History Tobacco Use Types Packs/Day Years Used Date Never Smoker Smokeless Tobacco: Never Used Sex Assigned at Date Recorded Not on file documented as of this encounter Progress Notes Didier Centeno MD - 07/11/2017 4:00 PM EDT Images from the original note were not included. DEPARTMENT DERMATOLOGY AT [facility] Dermatology At [facility] [address] [facility] [address] FOLLOW-UP Chief Complaint: Alopecia areata f/u - new spot History of Present Illness Melissa MONTGOMERY is a 41 y.o. female. History of alopecia areata who reports a new patch on the scalp noticed about Apr/May 2017. No symptoms. Never been treated. Interval changes to Medications and Medical, Family and Social Histories (including alcohol and tobacco use) Since Last Visit 02 May 2017: No significant interval history. Skin Cancer History No personal history of skin cancer No family history of skin cancer Allergies Review of patient's allergies indicates no known allergies. Medications currently has no medications in their medication list. Social History Tobacco: never Alcohol: Occasionally Review of Systems Significant for no pertinent and acute changes in constitutional, other skin systems upon specific queries. Examination Standby: Yonas Mendoza Mood is appropriate. Well developed, well-nourished in no apparent distress, alert and oriented to time, person, place and situation. Focused exam of the scalp, significant for the following: ?? 1 cm nonscarring patch of alopecia and the crown scalp right of midline Assessment and Plan Alopecia Areata, Scalp Improved. New 1cm patch. ?? Reviewed: alopecia areata, autoimmune disease sometimes triggered by stress and a/w other autoimmunedisorders, chronic and recurrent. Recommend repeat ILK but could consider trial hiatus. Answered allquestions. Patient elects ILK. ? Total 1 patch [10 injections] treated with Kenalog 10mg/ml [Lot # [id number] / EXP date ], total 1.0 ml after verbally discussing the disease and treatment options, Kenalog IL method, expected results/course and potential adverse effects, including pain, dyspigmentation, atrophy, and recurrence. Patient verbally agreed. Area prepped with alcohol. Blanching noted. Hemostasis achieved with drysol, as needed. Post-procedure pain 0/10. Patient tolerated well with no complications. Wound care instructions provided. Follow-up: 4 weeks or return to clinic prn for new suspicious lesions or if changes/symptoms in existing lesions develop. Note initiated by MYRIAM HAND has performed the documentation for this encounter in the presence of andacting as a scribe for Dr. Centeno. I performed the above scribed service and agree with the accuracy of the documentation in this encounter. Didier Centeno MD FAAD Section of Dermatology [facility] documented in this encounter Plan of Treatment Upcoming Encounters Date Type Specialty Care Team Description 10/04/2021 Office Visit Dermatology Didier Centeno MD [facility] [address] [place], [place] [address] (Wo rk) documented as of this encounter Visit Diagnoses Diagnosis Alopecia areata documented in this encounter Administered Medications Inactive Administered Medications - up to 3 most recent administrations Medication Order MAR Action Action Date Dose Rate Site triamcinolone acetonide (KENALOG) Given 07/11/2017 4:06 PM EDT 1 0 mg injection 10 mg 10 mg, Intra-Lesional, ONCE, 1 dose, On Mon07/11/17 at 1630, Routine documented in this encounter Care Teams Assistant Store Director Relationship Specialty Start Date End Date Laquita Hernandez MD PCP - General Pediatrics 12/06/16 07/28/20 documented as of this encounter
--- OUTSIDE RECORDS SUMMARY | 2021-09-15 00:30 | XMS_ITS | Encounter Summary ---
:1975 [place] [address] Care Team Providers Name Role Phone Unavailable Primary Care Provider Unavailable Encounter Details Date Type Department Care Team Description 04/08[facility]21 [facility] [address] [facility] [place] [address] [place] [address] [phone] (Wo rk) Social History Tobacco Use Types Packs/Day Years Used Date Never Smoker Smokeless Tobacco: Never Used Sex Assigned at Date Recorded Not on file documented as of this encounter Progress Notes Didier Centeno MD - 04/08/2021 4:00 PM EST Images from the original note were not included. DEPARTMENT OF DERMATOLOGY Medical Dermatology Clinic Provider: Didier Centeno MD FAAD at Dermatology [facility] Patient's preferred name Melissa PAST MEDICAL HISTORY (if blank, patient denies history) Melanoma Dysplastic nevi SCC [facility] [place] [] cryotherapy [] efudex [] PDT [] Other Relevant Medications [] Immunosuppression [] Transplant [] Oncogenic medication [] Nicotinamide 500mg po bid Other relevant history Alopecia Areata - ILK FAMILY HISTORY (if blank, patient denies history) Melanoma NMSC Other relevant history SOCIAL HISTORY History of Present Illness: Melissa MONTGOMERY is 45 y.o. and here for the following: ??? History of alopecia areata s/p ILK here for follow-up. Tolerating ILK well. Possible improvementin some areas but other areas notes no regrowth. Medications: Reviewed in eD-H Allergies: Reviewed in eD-H Skin Examination Standby: KODY Carrasco Well developed, well-nourished in no apparent distress, alert and oriented to time, person, place and situation. Focused examination of the skin of the scalp significant for the following: Exam Findings/Assessment/Plan Alopecia Areata 4x3 cm patch of nonscarring alopecia with ~40% filled in with new terminal hairs except for on the superior and left lower edge on the occipital scalp. Terminal hairs filling in left frontal scalp. Slight improvement on the occipital scalp and resolution on the left frontal sclap. Recommend repeat ILK at 40mg/ml given the lack of improvement on the occipital scalp at 10mg/ml; reviewed major and greater risk of skin atrophy with this higher concentration. Answered all questions. Joint decision to treat with Kenalog 40mg/ml. ?? Total 1 treated with Kenalog 40mg/ml [Lot# [id number]/ Exp MAY2022], total 0.6 ml after verbally discussing the disease and treatment options, Kenalog IL method, expected results/course and potential adverse effects, including pain, dyspigmentation, atrophy, and recurrence. Patient verbally agreed.Area prepped with alcohol. Blanching noted. Hemostasis achieved with drysol, as needed. Post-procedure pain 0/10. Patient tolerated well with no complications. Wound care instructions provided. Follow-up: 2 months for alopecia areata follow-up. Return sooner as needed for suspicious lesion, new or worsening dermatitis. [] Recall placed [] Forwarded to product safety technician [x] Patient scheduled before exiting Scribe attestation: KODY Carrasco has performed the documentation for this encounter in the presence of and acting as a scribe for MD LAWSON Regalado. I performed the above scribed service and agree with the accuracy of the documentation in this encounter. Reviewed and signed by: MD LAWSON Regalado Dermatology [facility] documented in this encounter Plan of Treatment Upcoming Encounters Date Type Specialty Care Team Description 10/04/2021 Office Visit Dermatology Didier Centeno MD [facility] [address] [place], [place] [address] (Wo rk) documented as of this encounter Visit Diagnoses Diagnosis Alopecia areata documented in this encounter Administered Medications Inactive Administered Medications - up to 3 most recent administrations Medication Order MAR Action Action Date Dose Rate Site triamcinolone acetonide Given 04/08/2021 4:16 PM EST 40 mg (Kenalog-40) (40 mg/mL) injection 40 mg 40 mg, Intra-Lesional, ONCE, 1 dose, On [place] 04/08/21 at 1645, Routine documented in this encounter
--- OUTSIDE RECORDS SUMMARY | 2021-09-15 00:30 | XMS_ITS | Encounter Summary ---
:1975 Author Organization [facility] [place] [address] Care Team Providers Name Role Phone Laquita Hernandez MD Primary Care Provider Reason for Visit Reason Comments Alopecia Encounter Details Date Type Department Care Team Description 03/11/2020 Office Visit Dermatology at [facility] Alexx Centeno MD [facility] [address] [facility] [place] [address] [place], [place] [id number] [phone] (Wo rk) Social History Tobacco Use Types Packs/Day Years Used Date Never Smoker Smokeless Tobacco: Never Used Sex Assigned at Date Recorded Not on file documented as of this encounter Progress Notes Didier Centeno MD - 03/11/2020 11:45 AM EST Images from the original note were not included. Dermatology Dermatology at [facility] FOLLOW-UP Chief Complaint: Alopecia areata flare History of Present Illness Melissa MONTGOMERY is a 44 y.o. female with history of alopecia areata who presents with the following concerns: ?? History of alopecia areata with flare on the back of the scalp. No symptoms or scaling. Here for ILK Antecedent History: History of patch??of spreading but asymptomatic hair loss on the left side of the scalp since Oct 2015. No known triggers. No history of autoimmune disorders. Never been biopsied. Treated with ILK with excellent response. Interval changes to Medications and Medical, Family and Social Histories (including alcohol and tobacco use) Since Last Visit 08/29/2019: No significant interval history. Skin Cancer History No personal history of skin cancer No family history of skin cancer Allergies Patient has no known allergies. Medications currently has no medications in their medication list. Review of Systems Significant for no pertinent and acute changes in constitutional, other skin systems upon specific queries. Examination Standby: Alexus Kimbrough CMA Well developed, well-nourished in no apparent distress, alert and oriented to time, person, place and situation. Focused examination of the skin of the scalp significant for the following: ?? Three 1-1.5 cm patches of non scarring alopecia on the mid occipital scalp Assessment and Plan Alopecia Areata Flaring in previous sites. Reviewed: alopecia areata, recommend ILK since she has had a great response in the past. Answered all questions. Patient agrees to plan. ?? Total 3 sites treated with Kenalog 10mg/ml [Lot# [id number] EXP: MAY 2021], total 1.0 ml after verbally discussing the disease and treatment options, Kenalog IL method, expected results/course and potential adverse effects, including pain, dyspigmentation, atrophy, and recurrence. Patient verbally agre ed. Area prepped with alcohol. Blanching noted. Hemostasis achieved with drysol, as needed. Post-procedure pain 0/10. Patient tolerated well with no complications. Wound care instructions provided. Follow-up: PRN or return to clinic prn for new suspicious lesions or if changes/symptoms in existinglesions develop. Note initiated by AN Jurado CMA has performed the documentation for this encounter in the presence of and acting as a scribe for Dr. Centeno. I performed the above scribed service and agree with the accuracy of the documentation in this encounter. Didier Centeno MD FAAD Section of Dermatology [facility] documented in this encounter Plan of Treatment Upcoming Encounters Date Type Specialty Care Team Description 10/04/2021 Office Visit Dermatology Didier Centeno MD [facility] [address] [place], [place] [address] (Wo rk) documented as of this encounter Visit Diagnoses Diagnosis Alopecia areata documented in this encounter Care Teams Shared Services And Outsourcing Manager Relationship Specialty Start Date End Date Laquita Hernandez MD PCP - General Pediatrics 12/06/16 07/28/20 documented as of this encounter
--- OUTSIDE RECORDS SUMMARY | 2021-09-15 00:30 | XMS_ITS | Encounter Summary ---
:1975 Author Organization [facility] [place] [address] Care Team Providers Name Role Phone Davidson Lopez MD Primary Care Provider Encounter Details Date Type Department Care Team Description 10/10/2016 Telephone Dermatology at [facility] None [address] [place] [address] Social History Tobacco Use Types Packs/Day Years Used Date Never Assessed Sex Assigned at Date Recorded Not on file documented as of this encounter Miscellaneous Notes Telephone Encounter - Joanne Wray - 10/10/2016 12:44 PM EDT I called joana last week 10/03 and forgot to note it. Home line was unavailable both times. I called the mobile number it was picked up than dropped. I will be sending out a letter. documented in this encounter Plan of Treatment Upcoming Encounters Date Type Specialty Care Team Description 10/04/2021 Office Visit Dermatology Didier Centeno MD [facility] [address] [place], [place] [address] (Wo rk) documented as of this encounter Visit Diagnoses Not on filedocumented in this encounter Care Teams Body Team Member Relationship Specialty Start Date End Date Davidson Lopez MD PCP - General 01/19/10 12/05/16 [address] [place] [address] documented as of this encounter
--- OUTSIDE RECORDS SUMMARY | 2021-09-15 00:30 | XMS_ITS | Encounter Summary ---
:1975 Author Organization [facility] [place] [address] Care Team Providers Name Role Phone Laquita Hernandez MD Primary Care Provider Reason for Visit Reason Comments Procedure Encounter Details Date Type Department Care Team Description 08/29/2019 Office Visit Dermatology at [facility] Didier Centeno [address]opec[address] MD (Primary Dx) [address] [place] [address] [address] [phone] [facility]-DERMATOLOGY [place], [place] [address] Social History Tobacco Use Types Packs/Day Years Used Date Never Smoker Smokeless Tobacco: Never Used Sex Assigned at Date Recorded Not on file documented as of this encounter Progress Notes Didier Centeno MD - 08/29/2019 4:40 PM EDT Images from the original note were not included. Dermatology Dermatology at [facility] FOLLOW-UP Chief Complaint: Alopecia areata f/u - improving History of Present Illness Melissa MONTGOMERY is a 43 y.o. female with history of alopecia areata who reports the following: ?? History of alopecia areata, s/p ILK 40 mg with significant hair regrowth but recurrent areas on the back of the scalp. Tolerated intralesional Kenalog well. Antecedent History: History of patch??of spreading but asymptomatic hair loss on the left side of the scalp since Oct 2015. Started as a small bald patch. No symptoms. Some new growth in areas but spreading towards the back of the head. No redness or scale. No other areas of involvement. No known triggers. No history of autoimmune disorders. Never been treated or biopsied. Interval Changes in Medications and Medical, Surgical Family, and Social Histories Since Last Visit 12/17/2018: No significant and pertinent interval changes. Skin Cancer History No personal history of skin cancer No family history of skin cancer Allergies Patient has no known allergies. Medications currently has no medications in their medication list. Social History Tobacco: never Alcohol: Occasionally?? Review of Systems Significant for no pertinent and acute changes in constitutional, other skin, musculoskeletal systems upon specific queries. Examination Standby: KODY Carrasco Mood is appropriate. Well developed, well-nourished in no apparent distress, alert and oriented to time, person, place and situation. Patient was asked to disrobe to the level of comfort. Examination of the head - including the scalp,face, ears, nose, lips - neck, chest, abdomen, back, axillae, buttocks, pubic area, upper and lower extremities, including the nail plates, significant for the following: ?? 2.5 x 2 cm patch of nonscarring alopecia on the midline, lower occipital scalp; 1 cm patch of nonscarring alopecia on the right occipital scalp; 1.3 cm patch of nonscarring alopecia on the left mid occipital scalp. Regrowth on the right occipital scalp. Assessment and Plan Alopecia areata Responding well to ILK. Joint decision to re-treat with high-dose ILK today. ?? Total 3 treated with Kenalog 40 mg/ml [Lot# [id number] / Exp APR 2019, total 0.7 ml after verbally discussing the disease and treatment options, Kenalog IL method, expected results/course and potentialadverse effects, including pain, dyspigmentation, atrophy, and recurrence. Patient verbally agreed. Area prepped with alcohol. Blanching noted. Hemostasis achieved with drysol, as needed. Post-procedure pain 0/10. Patient tolerated well with no complications. Wound care instructions provided. Follow-up: in 4 weeks if no regrowth felt on the back of the head or if she would like to have the occipital scalp reevaluated or sooner as needed for worsening alopecia or new dermatitis. Note initiated by KODY Carrasco CCMA has performed the documentation for this encounter in the presence of and acting as a scribe for Dr. Centeno. I performed the above scribed service and agree with the accuracy of the documentation in this encounter. Didier Centeno MD FAAD Section of Dermatology [facility] documented in this encounter Plan of Treatment Upcoming Encounters Date Type Specialty Care Team Description 10/04/2021 Office Visit Dermatology Didier Centeno MD [facility] ER [address] [place], [place] [address] (Wo rk) documented as of this encounter Visit Diagnoses Diagnosis Alopecia areata - Primary documented in this encounter Administered Medications Inactive Administered Medications - up to 3 most recent administrations Medication Order MAR Action Action Date Dose Rate Site triamcinolone acetonide Given 08/29/2019 1:48 PM EDT 40 mg (KENALOG-40) injection 40 mg 40 mg, Intra-Lesional, ONCE, 1 dose, On [place]ary 08/29/19 at 1330, Routine documented in this encounter Care Teams Tip Inserter Relationship Specialty Start Date End Date Laquita Hernandez MD PCP - General Pediatrics 12/06/16 07/28/20 documented as of this encounter
--- OUTSIDE RECORDS SUMMARY | 2021-09-15 00:30 | XMS_ITS | Encounter Summary ---
:1975 Author Organization [facility] [place] [address] Care Team Providers Name Role Phone Laquita Hernandez MD Primary Care Provider Reason for Visit Reason Comments Alopecia Encounter Details Date Type Department Care Team Description 05/02/2017 [facility] [address] MD (Primary Dx) [address] [place] [address] [address] [phone] [facility] [place], [place] [address] Social History Tobacco Use Types Packs/Day Years Used Date Never Smoker Smokeless Tobacco: Never Used Sex Assigned at Date Recorded Not on file documented as of this encounter Progress Notes Didier Centeno MD - 05/02/2017 4:00 PM EST Images from the original note were not included. Chief Complaint: Alopecia areata f/u - improved History of Present Illness Melissa MONTGOMERY is a 41 y.o. female. History of alopecia areata on the left parietal scalp s/p ILK 10mg/ml who reports much improvement but new spot on the left scalp. No symptoms.. Tolerated ILK with no adverse effects. Antecedent History: History of alopecia areata on the left parietal scalp since Oct 2015. No rednessor scale. No other areas of involvement. No known triggers. No history of autoimmune disorders. Started ILK 10mg/ml Nov 2016. Never been biopsied. Interval Changes in Medications and Medical, Surgical, Family and Social Histories Since Last Visit 16 Jan 2017: no significant or pertinent interval changes. Skin Cancer History No personal history of skin cancer. No family history of skin cancer. Allergies No Known Allergies Medications None Review of Systems Significant for no other pertinent and acute changes in constitutional, other skin systems upon specific queries. 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 Well developed, well-nourished in no apparent distress, alert and oriented to time, person, place and situation. Focused examination of the scalp, hair significant for the following: ?? 1 cm patch of non scarring alopecia on the left upper parietal scalp Images Photo(s) taken by Rhonda Centeno MD. with patient's verbal permission for use for clinical and educationpurposes. 02 May 2017 16 Jan 2017 06 Dec 2016 Assessment and Plan Alopecia Areata Improved. New 1cm patch. Reviewed: alopecia areata, autoimmune disease sometimes triggered by stress and a/w other autoimmunedisorders, chronic and recurrent. Recommend repeat ILK but could consider trial hiatus. Answered allquestions. Patient elects ILK. ?? Total 1 patch [10 injections] treated with Kenalog 10mg/ml [Lot # [id number] / EXP date April 2018],total 1.0 ml after verbally discussing the disease and treatment options, Kenalog IL method, expected results/course and potential adverse effects, including pain, dyspigmentation, atrophy, and recurrence. Patient verbally agreed. Area prepped with alcohol. Blanching noted. Hemostasis achieved with drysol, as needed. Post-procedure pain 0/10. Patient tolerated well with no complications. Wound care instructions provided. Follow-up: as needed for worsening or new alopecia. Note initiated by MYRIAM BERMUDEZ LPN has performed the documentation for this encounter in the presence of and acting as a scribe for Dr. Centeno. I performed the above scribed service and agree with the accuracy of the documentation in this encounter. Didier Centeno MD FAAD Section of Dermatology [facility] documented in this encounter Plan of Treatment Upcoming Encounters Date Type Specialty Care Team Description 10/04/2021 Office Visit Dermatology Didier Centeno MD [facility] ER [address] [place], [place] [address] (Wo rk) documented as of this encounter Visit Diagnoses Diagnosis Alopecia areata - Primary documented in this encounter Care Teams Field Marketing Lead Relationship Specialty Start Date End Date Laquita Hernandez MD PCP - General Pediatrics 12/06/16 07/28/20 documented as of this encounter
--- OUTSIDE RECORDS SUMMARY | 2021-09-15 00:30 | XMS_ITS | Encounter Summary ---
:1975 Author Organization [facility] [place] [address] Care Team Providers Name Role Phone Laquita Hernandez MD Primary Care Provider Encounter Details Date Type Department Care Team Description 12/17/2018 Office Visit Dermatology at [facility] Didier Centeno Alopecia areata Road MD (Primary Dx) [address] [place] [address] [address] [address] [phone] [facility] [place], [place] [address] Social History Tobacco Use Types Packs/Day Years Used Date Never Smoker Smokeless Tobacco: Never Used Sex Assigned at Date Recorded Not on file documented as of this encounter Progress Notes Didier Centeno MD - 12/17/2018 3:45 PM EDT Images from the original note were not included. Dermatology Dermatology at [facility] FOLLOW-UP Chief Complaint: Alopecia areata f/u - improving History of Present Illness Melissa MONTGOMERY is a 43 y.o. female History of alopecia areata, s/p ILK 40 mg with significant hair regrowth. Tolerated procedure well. Antecedent History: History of patch??of spreading [...] Family, and Social Histories Since Last Visit 09/19/2018: No significant and pertinent interval changes. Skin Cancer History No personal history of skin cancer No family history of skin cancer Allergies Patient has no known allergies. Medications currently has no medications in their medication list. Social History Tobacco: never Alcohol: Occasionally?? Review of Systems Significant for no pertinent and acute changes in constitutional, other skin, musculoskeletal systems upon specific queries. Examination Standby: Mk [...] nail plates, significant for the following: ?? 1 cm nonscarring patches of alopecia with scant, new, terminal hairs on the midline lower occipital scalp; 2 x 3 cm patch of nonscarring alopecia on the left lower occipital scalp and right upper occipital scalp. Assessment and Plan Alopecia areata Responding well to ILK. New patch irdent Joint decision to re-treat with ILK today. ?? Total 4 treated with Kenalog 40 mg/ml [Lot# [id number] / Exp FEB 2020], total 1.2 ml after verbally discussing the disease and treatment options, Kenalog IL method, expected results/course and potential adverse effects, including pain, dyspigmentation, atrophy, and recurrence. Patient verbally agreed.Area prepped with alcohol. Blanching noted. Hemostasis achieved with drysol, as needed. Post-procedure pain 0/10. Patient tolerated well with no complications. Wound care instructions provided. Follow-up: in 6 weeks for alopecia areata follow-up or sooner as needed for worsening alopecia or new dermatitis. Note initiated by KODY Carrasco Mk Zaynab has performed the documentation for this encounter in the presence of and acting as ascribe for Dr. Centeno. I performed the above scribed service and agree with the accuracy of the documentation in this encounter. Didier Centeno MD FAAD Section of Dermatology [facility] documented in this encounter Plan of Treatment Upcoming Encounters Date Type Specialty Care Team Description 10/04/2021 Office Visit Dermatology Didier Centeno MD [facility] ER [address]RI[address] [place], [place] [address] (Wo rk) documented as of this encounter Visit Diagnoses Diagnosis Alopecia areata - Primary documented in this encounter Administered Medications Inactive Administered Medications - up to 3 most recent administrations Medication Order MAR Action Action Date Dose Rate Site triamcinolone acetonide Given 12/17/2018 4:30 PM EDT 40 mg (KENALOG-40) injection 40 mg 40 mg, Intra-Lesional, ONCE, 1 dose, On 12/17/18 at 1645, Routine documented in this encounter Care Teams Cylinder Press Feeder Relationship Specialty Start Date End Date Laquita Hernandez MD PCP - General Pediatrics 12/06/16 07/28/20 documented as of this encounter
--- OUTSIDE RECORDS SUMMARY | 2021-09-15 00:30 | XMS_ITS | Encounter Summary ---
:1975 Author Organization [facility] [place] [address] Care Team Providers Name Role Phone Davidson Lopez MD Primary Care Provider Encounter Details Date Type Department Care Team Description 06/16/2010 Hospital Encounter Laboratory [facility] [address] [place] [address] [place] [address] [phone] (Wo rk) Social History Tobacco Use Types Packs/Day Years Used Date Never Assessed Sex Assigned at Date Recorded Not on file documented as of this encounter Medications at Time of Discharge Medication Sig Dispensed Refills Start Date End Date Miconazole Powd apply to skin area, 0 11/11/2004 12/06/2016 Misc, Twice daily multivitamin (DAILY 0 11/08/200412/06 MULTIPLE) tablet cimetidine (TAGAMET) 400 0 11/08/2004 12/06/2016 mg tablet documented as of this encounter Plan of Treatment Upcoming Encounters Date Type Specialty Care Team Description 10/04/2021 Office Visit Dermatology Didier Centeno MD [facility] ER [address] [place], [place] [address] (Wo rk) documented as of this encounter Procedures Procedure Name Priority Date/Time Associated Diagnosis Comme nts SOFTWARE LICENSING SPECIALIST CYTOLOGY FINAL Routine 06/16/2010 8:00 PM Res ults for this REPORT EDT procedure are i n the results section. documented in this encounter Results SOFTWARE LICENSING SPECIALIST CYTOLOGY FINAL REPORT (06/16/2010 8:00 PM EDT) Component Value Ref Test Analysis Performed At [facility] gist Range Method Time Signature Director Machine Cytology CERNER Final Report ? [facility] ? Provider: ?? PRIYANKA THOMAS ? Pt. Name: ?? MELISSA GOLDBERG ? Acc #: ?[id number] ?Pt. MRN: ?[id number] ? Col Date: ?? 1 ? /Sex: ?1975,(34 years),Female ? Rec Date: ?? 06/21/2010 ? LOC: ?[facility] ? CYTOPATHOLOGY: ??SOFTWARE LICENSING SPECIALIST ? ---Adequacy--- ? Specimen submitted is satisfactory. ? Endocervical component present. ? ---Cytopathologic Diagnosis--- ? NORMAL ? Negative for Intraepithelial Lesion or Malignancy (NI LM). ? 06/24/10 ?? Screened by: ??[facility] ? 06/24/10 ?? Verified by: ??Brennan PARK(ASCP) , Charlene Davidson - Analytic Manager ? ---Clinical Information--- ? Hormones?: ?No ? Hysterectomy?: ?No ?: ?No ?: ?No ? I.U.D.?: ?No ? Pelvic Radiation: ? No ? Prior SOFTWARE LICENSING SPECIALIST Therapy?: ? No ? Hist Abnl Pap/Biopsy?: ??No ? HPV Option: ? Reflex HPV ? Specimen Source: ?Cervical Endocervical LBP ? Preparation: ?Liquid Based Pap ? LMP: ?05/31/2010 ? Hist of HPV Vaccine?: ?? (not provided) ? Hist of Smoking?: ? (not provided) ? Hist of CHRIS exposure?: ??(not provided) ? Clinical Data, Significant Therapy and Clinical Impre ssion: ?_ ? This Pap Test has bee n evaluated with the assistance of the ThinPrep Pap ? Test Imaging System. ? Note: ? The Pap test is a screening test for cervical c ancer with an inherent ? false-negative rate dependent upon several variables. ??For further ? information please contact the [facility] Laboratory. ? [facility] ? Provider: ?? PRIYANKA THOMAS ? Pt. Name: ?? MELISSA GOLDBERG ? Acc #: ?[id number] ?Pt. MRN: ?[id number] ? Col Date: ?? 1 ? /Sex: ?1975,(34 years),Female ? Rec Date: ?? 06/21/2010 ? LOC: ?[facility] ? CYTOPATHOLOGY: ??SOFTWARE LICENSING SPECIALIST ? Reference: ??Abwallyrot h CS. ??Fitness Studies Teacher of Pap Smear Results. ??In: ? Silviano BS, Noel HH, ed. ??The Pap Smear. ??[place]: ??Bro, 2002: ? 71-77. Specimen (Source) Anatomical Collection Method Collection Time Re ceived Time Location / / Volume Laterality 06/16/2010 8:00 PM EDT Priyanka Thomas [facility]CYT[facility]Y ORDERABLE S Performing Organization Address City/State/ZIP Code Phon e Number [address] [facility] documented in this encounter Visit Diagnoses Not on filedocumented in this encounter Care Teams Footwear Sales Leader Relationship Specialty Start Date End Date Davidson oLpez MD PCP - General 01/19/10 12/05/[address] [place] [id number] documented as of this encounter
--- OUTSIDE RECORDS SUMMARY | 2021-09-15 00:30 | XMS_ITS | Encounter Summary ---
:1975 Author Organization [facility] [place] [address] Care Team Providers Name Role Phone Laquita Hernandez MD Primary Care Provider Reason for Visit Reason Comments Alopecia Encounter Details Date Type Department Care Team Description 12/06/2016 Office Visit Dermatology at [facility] Didier Centeno [facility] Amber MAY (Primary Dx) [address] [place] [address] [facility] [place] [place] [address] Social History Tobacco Use Types Packs/Day Years Used Date Never Smoker Smokeless Tobacco: Never Used Sex Assigned at Date Recorded Not on file documented as of this encounter Progress Notes Didier Centeno MD - 12/06/2016 3:00 PM EDT Images from the original note were not included. DEPARTMENT DERMATOLOGY AT [facility] Dermatology At [facility] [address] [facility] [address] NEW PATIENT Chief Complaint: large patch of hair loss on left scalp History of Present Illness Melissa MONTGOMERY is a 41 y.o. female. Complains of patch of spreading but asymptomatic hair loss on the left side of the scalp since Oct 2015. Started as a small bald patch. No symptoms. Some new growth in areas but spreading towards the back of the head. No redness or scale. No other areas of involvement. No known triggers. No history ofautoimmune disorders. Never been treated or biopsied. ? Denies Skin Cancer History No personal history of skin cancer. No family history of skin cancer. Allergies No Known Allergies Medications None Review of Systems Significant for no other pertinent and acute changes in constitutional, other skin systems upon specific queries. 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 Well developed, well-nourished in no apparent distress, alert and oriented to time, person, place and situation. Skin Type: II. Focused examination of the head - including the scalp, hair, eyebrows/eyelashes, face significant for the following: ?? 6 cm x 9 cm patch of nonscaring Alopecia: 60% filled in with terminal of hairs and smallpatch of Vellous Hairs. Assessment and Plan Alopecia Areata Localized to the left scalp with areas of new terminal hair growth without treatment, but spreading.Recommend treatment with ILK on the areas of villus hairs. Counseled: alopecia areata, autoimmune disease sometimes triggered by stress and a/w other autoimmune disorders, chronic and recurrent, and management with topical +/- IL steroids, excimer for localized patches, and systemic medications. Handout given. Answered all questions. Total 1 patch (3 areas) treated with Kenalog 10mg/ml, total 1.0 ml after verbally discussing the disease and treatment options, Kenalog IL method, expected results/course and potential adverse effects,including pain, dyspigmentation, atrophy, and recurrence. Patient verbally agreed. Area prepped withalcohol. Blanching noted. Hemostasis achieved with drysol, as needed. Post- procedure pain 0/10. Patient tolerated well with no complications. Wound care instructions provided. Follow-up: in 3 weeks or sooner as needed for worsening or new dermatitis. Note initiated by MYRIAM MARIE LPN has performed the documentation for this encounter in the presence of and acting asa scribe for Dr. Centeno. I performed the above scribed service and agree with the accuracy of the documentation in this encounter. Didier Centeno MD FAAD Section of Dermatology [facility] documented in this encounter Plan of Treatment Upcoming Encounters Date Type Specialty Care Team Description 10/04/2021 Office Visit Dermatology Didier Centeno MD [facility] ER [address] [place], [place] [address] (Wo rk) documented as of this encounter Visit Diagnoses Diagnosis Alopecia areata - Primary documented in this encounter Care Teams Lever Operator Relationship Specialty Start Date End Date Laquita Hernandez MD PCP - General Pediatrics 12/06/16 07/28/20 documented as of this encounter
--- OUTSIDE RECORDS SUMMARY | 2021-09-15 00:30 | XMS_ITS | Encounter Summary ---
:1975 Author Organization [facility] [place] [address] Care Team Providers Name Role Phone Unavailable Primary Care Provider Unavailable Encounter Details Date Type Department Care Team Description 04/08/2021 Travel Social History Tobacco Use Types Packs/Day Years Used Date Never Smoker Smokeless Tobacco: Never Used Sex Assigned at Date Recorded Not on file documented as of this encounter Plan of Treatment Upcoming Encounters Date Type Specialty Care Team Description 10/04/2021 Office Visit Dermatology Didier Centeno MD [facility] [address] [place], [place] [address] (Wo rk) documented as of this encounter Visit Diagnoses Not on filedocumented in this encounter
--- OUTSIDE RECORDS SUMMARY | 2021-09-15 00:32 | XMS_ITS | Encounter Summary ---
:1975 Author Organization [facility] Address [address] [place] [address] Care Team Providers Name Role Phone Vladimir Moran KAREN Primary Care Provider [phone] Leticia Franklin MD Unavailable Unavailable Encounter Details Date Type Department Care Team Description 02/03/2021 Lab Requisition [facility] Daljit Sanchez for other Pathology & MD Janet general examination Laboratory Medicine [id number] [place] [id number] Social History Tobacco Use Types Packs/Day Years Used Date Never Assessed Sex Assigned at Date Recorded Not on file documented as of this encounter Plan of Treatment Not on filedocumented as of this encounter Procedures Procedure Name Priority Date/Time Associated Diagnosis Comme nts SURGICAL PATHOLOGY Today 02/03/2021 10:29 Encounter for othe r Results for this EST general examination procedur e are in the results section. documented in this encounter Results SURGICAL PATHOLOGY (02/03/2021 10:29 EST) Note to Patient The following [facility] pathology results have CENTER been interpreted by LABORATORY your pathologist and SERVICES may be available to you before your health provider has had the opportunity to review them. Please allow time for your provider to receive these results and explore management options, if applicable. Final Diagnosis A. STOMACH, ANTRUM/BODY, BIOPSY: [facility] ED[facility] - Antral-type mucosa with no significant diagnostic ab normality. CENTER - Oxyntic-type mucosa with no significant diagnostic a bnormality. LABORATORY SERVICES B. STOMACH, CARDIA, BIOPSY: - Oxyntic-type mucosa with no significant diagnostic a bnormality. C. GASTROESOPHAGEAL JUNCTION, BIOPSY: - Squamocolumnar junctional mucosa with reactive blevins es. - Negative for intestinal metaplasia. - Negative for dysplasia. D. COLON, CECUM, BIOPSY: - Tubular adenoma. Attestation By the signature [facility] Electronica lly below, the attending CENTER signed by Jose Manuel, physician certifies LABORATORY Jude Momin MD on that they have 1) SERVICES 02/05/2021 at 1042 personally conducted a gross and/or microscopic examination of the described specimen(s), and/or personally interpreted the results of laboratory testing of the described specimen(s), and 2) personally rendered or confirmed the above diagnosis. Clinical History Abdominal pain; polyp [facility] SERVICES Gross Description A. [facility] Received in formalin kaleb d with proper patient identification (initials M, A) and 1. Antrum Bx + body are 3 page-brown tissues (0.5 x 0.3 x 0.2 cm to 0.6 x 0.4 x 0.2 cm). Entirely submitted in A1. CENTER LABORATORY B. SERVICES Received in formalin kaleb d with proper patient identification (initials M, A) and 2. Cardia is a page-brown tissue (0.6 x 0.2 x 0.1 cm). Entirely submitted in B1. C. Received in formalin kaleb d with proper patient identification (initials M, A) and 3. GE junction are 2 white-page tissues (0.3 x 0.3 x 0.1 cm and 0.6 x 0.2 x 0.1 cm). Entirely submitted in C1. D. Received in formalin kaleb d with proper patient identification (initials M, A) and 4. Cecal polyp is a page-brown tissue (0.6 x 0.2 x 0.1 cm). Entirely submitted in D1. ISABELL MARIE(ASCP) 02/04/2021 7:53 Performing Lab [facility] LAB [facility]OR[facility] SERVICES Scanned Images [facility]OR[facility] SERVICES Specimen Tissue - Cecum structure (body structure ) Tissue specimen (specimen) - Entire stom ach (body structure) Tissue specimen (specimen) - Entire esop hagus (body structure) Tissue specimen (specimen) - Cecum struc ture (body structure) Performing Organization Address City/State/ZIP Code Phon e Number [facility] [address] [place] [address] SERVICES documented in this encounter Visit Diagnoses Diagnosis Encounter for other general examination documented in this encounter Care Teams Vice President Of News Relationship Specialty Start Date End Date Vladimir Moran, KAREN PCP - General 12/28/[address] [place] [id number] Leticia Franklin MD 12/28/20 documented as of this encounter
--- OUTSIDE RECORDS SUMMARY | 2021-09-15 00:32 | XMS_ITS | Encounter Summary ---
:1975 Author Organization [facility] Address [address] [place] [address] Care Team Providers Name Role Phone Unknown, Provider Primary Care Provider Encounter Details Date Type Department Care Team Description 08/11/2014 Results Only [facility] Aviva Franklin MD [phone] [place] [address] Social History Tobacco Use Types Packs/Day Years Used Date Never Assessed Sex Assigned at Date Recorded Not on file documented as of this encounter Plan of Treatment Not on filedocumented as of this encounter Procedures Procedure Name Priority Date/Time Associated Diagnosis Comme nts PAP TEST- RESULT Routine 08/11/2014 0:00 EDT Resu lts for this ONLY procedure are i n the results section. documented in this encounter Results PAP TEST- RESULT ONLY (08/11/2014 0:00 EDT) Pathology Report: CYTOPATHOLOGY REPORT [facility] Reports generated via electronic interface contain ryne ginal data; SERVICES however they are lacking the format of the original re port. Caution should be taken when reading/interpreting unfo rmatted reports. Name: ? MELISSA GOLDBERG ? Accession #: ? [id number] ? : ? 1975 (Age: 2 0) ??F ?Collect Date: ? 08/11/2014 ? Location: ? [facility] ? Receive Date: ? 08/13/19 15 ? Provider: AVIVA FRANLKIN MD Copy to: ? Final Report SPECIMEN ADEQUACY ? Satisfactory for Evaluation - transformation zone component present GENERAL CATEGORIZATION ? Negative for Intraepithelial Lesion or Malignan cy ?? Last Menstrual Period: 08/02/14 Other: Additional clinical i nformation: negative pap history, last pap 10 years ago Specimen/Source: ??Pap Test, Cervix/Endocervix, ThinPr ep Imaging System with manual evaluation Document reviewed and electronically signed by: ? Karen Stahl, CT(ASCP) ? Report ??Date: 08/19/2014 08:45 HPV with Pap Test ? Date Ordered: ? 08/19/2014 ? Status: ?? Signed Out ?Date Complete: ? 08/21/2014 ? By: ??Sy stem Interface ? Date Reported: ? 08/21/2014 ? Interpretation RESULT: Negative for HPV. No E6 or E7 mRNA is detected from HPV types 16,18,31,3 3,35, 39,45,51,52,56,58,59,66, and 68 by flare breaker media latasha amplification. Comments Document reviewed and electronically signed by: ? System Interface ? Report date: 08/21/2014 By the signature above, the attending physician certif ies that he/she has personally conducted a gross and/or microscopic examin ation of the described specimens and rendered or confirmed the above diagnosi s. End of Report Specimen Performing Organization Address City/State/ZIP Code Phon e Number [facility] [address] [place] [address] SERVICES documented in this encounter Visit Diagnoses Not on filedocumented in this encounter Care Teams Lead Recoverer Relationship Specialty Start Date End Date Unknown, Provider, PCP - General 08/12/14 01/05/15 documented as of this encounter
--- OUTSIDE RECORDS SUMMARY | 2021-09-15 00:32 | XMS_ITS | Encounter Summary ---
:1975 Author Organization [facility] Address [address] [place] [address] Care Team Providers Name Role Phone Leticia Franklin MD Primary Care Provider Unavailable Vladimir Moran RPA Primary Care Provider [phone] Leticia Franklin MD Unavailable Unavailable Encounter Details Date Type Department Care Team Description 08/08/2020 Lab Requisition [facility] Outr Resulting Lab, Pathology & Laboratory Provider [facility] [address] [place] [address] Social History Tobacco Use Types Packs/Day Years Used Date Never Assessed Sex Assigned at Date Recorded Not on file documented as of this encounter Plan of Treatment Not on filedocumented as of this encounter Procedures Procedure Name Priority Date/Time Associated Diagnosis Comme nts COVID-19 TEST [facility] Today 08/07/2020 13:45 LAB PCR EDT COVID-19 TESTING Routine 08/07/2020 13:45 Results for this EDT procedure are i n the results section. documented in this encounter Results COVID-19 TEST [facility] LAB PCR (08/07/2020 13:45 EDT) Specimen Swab - Entire nasopharynx (body structur e) Performing Organization Address City/State/ZIP Code Phon e Number [facility] [address] [place] [address] SERVICES (ABNORMAL) COVID-19 TESTING (08/07/2020 13:45 EDT) COVID-19 rt-PCR Positive (AA) Negative [facility] Result Comment: [facility] This test has not been FDA c leared or approved. This test has been authorized by FDA under an EUA for use by authorized laboratories. This test has been authorized only for detection of nucleic acid fro SERVICES m 2019-nCoV, not for any oth er viruses or pathogens. This test is only authorized for the duration of the declaration that circumstances exist justifying the authorization of emergency use of in vitro d iagnostic tests for detectio n and/or diagnosis of 2019-nCoV under section 564(b)(1) of Act, 21 U.S.C ?? 360bbb-3(b) (1), unless the authorization is terminated or revoked sooner. This test was developed and its performance characteristics determined by [facility]. It has not been cleared or approved by the US Food and Drug Administration. FDA does not require this test to go through premarket FDA review. This t est is used for clinical purposes. It should not be regarded as investigational or for research. This laboratory is certified under the Clinical Laboratory Improvement Amendm ents (CLIA) as qualified to perform high complexity clinical laboratory testing. This test is based on the CD C COVID-19 Emergency Use Authorization (EUA) assay, with minor modification as defined by the FDA Performed on the Fluidinfoo 7 Pro RT-PCR System. Performing Lab [facility] Lab [facility] SERVICES Specimen Swab Performing Organization Address City/State/ZIP Code Phon e Number [facility] [address] [place] [address] SERVICES documented in this encounter Visit Diagnoses Not on filedocumented in this encounter Additional Health Concerns Infection Onset Date Last Indicated Resolved Time COVID-19 08/07/2020 08/07/2020 09/06/2020 22:15 EDT documented as of this encounter Care Teams Coal Inspector Relationship Specialty Start Date End Date Leticia Franklin MD PCP - General 01/06/15 12/27/20 Vladimir Moran RPA PCP - General 12/28/[address] [address] Leticia Franklin MD 12/28/20 documented as of this encounter
--- OUTSIDE RECORDS SUMMARY | 2021-09-15 00:32 | XMS_ITS | Encounter Summary ---
:1975 Author Organization [facility] Address [address] [place] [address] Care Team Providers Name Role Phone Aviva Franklin MD Primary Care Provider Unavailable Encounter Details Date Type Department Care Team Description 04/08/2015 Results Only [facility] Aviva Franklin MD [phone] [place] [address] Social History Tobacco Use Types Packs/Day Years Used Date Never Assessed Sex Assigned at Date Recorded Not on file documented as of this encounter Plan of Treatment Not on filedocumented as of this encounter Procedures Procedure Name Priority Date/Time Associated Diagnosis Comme [facility] SURGICAL PATHOLOGY Routine 04/08/2015 22:11 Resul ts for this EST procedure are i n the results section. documented in this encounter Results SURGICAL PATHOLOGY (04/08/2015 22:11 EST) Pathology Report: SURGICAL PATHOLOGY REPORT [facility] Reports generated via electronic interface contain ryne ginal data; LABORATORY however they are lacking the format of the original re port. SERVICES Caution should be taken when reading/interpreting unfo rmatted reports. Name: ? MELISSA GOLDBERG ? Accession #: ? [id number] ? : ? 1975 (Age: [age]) ??F ? Collect Date: ? 04/08/2015 ? Location: ? [facility] ? Receive Date: ? 04/08/19 16 ? Provider: AVIVA FRANKLIN MD Copy to: ? Final Pathologic Diagnosis: A. UTERUS, MORCELLATED SUPRACERVICAL HYSTERECTOMY: - ??Endometrium: Proliferative endometrium. - ??Myometrium: Leiomyomata (1.3 cm in greatest dimens ion). - ??Serosa: No specific pathologic features. B. FALLOPIAN TUBE, LEFT, DISTAL, PARTIAL SALPINGECTO MY: - ??No specific pathologic features. C. FALLOPIAN TUBE, RIGHT, DISTAL, PARTIAL SALPINGECT GIACOMO: - ??No specific pathologic features. Document reviewed and electronically signed by: OMAIRA COLLINS MD Report ??Date: 04/13/2015 11:24 By the signature above, the attending physician certif ies that he/she has personally conducted a gross and/or microscopic examin ation of the described specimens and rendered or confirmed the above diagnosi s. Specimen(s) Received: A. ??Uterus B. ??Left fallopian tube, distal C. ??Right fallopian tube, distal Clinical History: Menorrhagia Gross Description: A. ? Received in formalin labelled with proper pat ient identification (initials G, A) and uterus is a uterus in multiple irregular pieces, forming an aggregate mass of 9.5 x 8.0 x 3.3 cm and weighing 6 5 g. Generous page endometrium is identified, averaging 0.5 cm in thickne ss. Two fibroids are identified, 0.3 cm and 1.3 cm, both of which have dens e whorled white cut surfaces. Repair Table Operator sections are submitted as lito paz: BLOCK DEE A1-A3- ??endomyometrium A4- ??fibroids x2 A5- ??myometrium with serosa B. ?Received in formalin labelled with proper p atient identification (initials G, A) and left fallopian tube, distal is a slightly fragmented fimbriated segment of fallopian tube measuring 2 .8 cm in length and 0.7 cm in diameter. The serosa is unremarkable. Re presentative sections are submitted in B1. C. ?Received in formalin labelled with proper p atient identification (initials G, A) and right fallopian tube, dista l is a fimbriated segment of fallopian tube measuring 4.5 cm in length and 0.7 cm in diameter. The serosa is slightly ??congested. Repair Table Operator sections are subm itted in C1. Yanet WHYTE 04/09/2015 11:06 AM End of Report Specimen Performing Organization Address City/State/ZIP Code Phon e Number [facility] [address] [place] [address] SERVICES documented in this encounter Visit Diagnoses Not on filedocumented in this encounter Care Teams Retrofit Installer Relationship Specialty Start Date End Date Aviva Franklin MD PCP - General 01/06/15 12/27/20 documented as of this encounter
--- OUTSIDE RECORDS SUMMARY | 2021-09-15 00:32 | XMS_ITS | Encounter Summary ---
:1975 Author Organization [facility] Address [address] [place] [address] Care Team Providers Name Role Phone Unknown, Provider Primary Care Provider Encounter Details Date Type Department Care Team Description 01/02/2015 Results Only [facility] Aviva Franklin MD [phone] [place] [address] Social History Tobacco Use Types Packs/Day Years Used Date Never Assessed Sex Assigned at Date Recorded Not on file documented as of this encounter Plan of Treatment Not on filedocumented as of this encounter Procedures Procedure Name Priority Date/Time Associated Diagnosis Comme [facility] SURGICAL PATHOLOGY Routine 01/02/2015 18:59 Resul ts for this EST procedure are i n the results section. documented in this encounter Results SURGICAL PATHOLOGY (01/02/2015 18:59 EST) Pathology Report: SURGICAL PATHOLOGY REPORT [facility] Reports generated via electronic interface contain ryne ginal data; LABORATORY however they are lacking the format of the original re port. SERVICES Caution should be taken when reading/interpreting unfo rmatted reports. Name: ? MELISSA GOLDBERG ? Accession #: ? [id number] ? : ? 1975 (Age: 2 1) ??F ? Collect Date: ? 01/02/2015 ? Location: ? [facility] ? Receive Date: ? 01/03/20 15 ? Provider: AVIVA FRANKLIN MD Copy to: ? Final Pathologic Diagnosis: ENDOMETRIUM, BIOPSY: - ??Mid to late secretory endometrium. Document reviewed and electronically signed by: OMAIRA COLLINS MD Report ??Date: 01/06/2015 13:54 By the signature above, the attending physician certif ies that he/she has personally conducted a gross and/or microscopic examin ation of the described specimens and rendered or confirmed the above diagnosi s. Specimen(s) Received: Endometrial biopsy Clinical History: Menorrhagia with regular cycles; EMS 2.5 cm, heterogeneous, no abnl blood flow on U/S Gross Description: ? Received in formalin labelled with proper patient identification (initials G, A) and endometrial bx is an aggregate of page and page-brown soft tissue admixed with a scanty amount of slightly viscous clear material (3.5 x 2.0 x 0.5 cm). Submitted in toto in 1 and 2. Franklin Nova 01/05/2015 8:53 AM End of Report Specimen Performing Organization Address City/State/ZIP Code Phon e Number [facility] [address] [place] [address] SERVICES documented in this encounter Visit Diagnoses Not on filedocumented in this encounter Care Teams Optical Instrument Assembly Supervisor Relationship Specialty Start Date End Date Unknown, Provider, PCP - General 08/12/14 01/05/15 documented as of this encounter
--- OUTSIDE RECORDS SUMMARY | 2021-09-15 00:32 | XMS_ITS | Encounter Summary ---
:1975 Author Organization [facility] Address [address] [place] [address] Care Team Providers Name Role Phone Unknown, Provider Primary Care Provider Encounter Details Date Type Department Care Team Description 01/02/2015 Hospital Encounter [facility] [place] Unknown, Provider, [facility] [phone] [place] [address] (Work) [phone] Social History Tobacco Use Types Packs/Day Years Used Date Never Assessed Sex Assigned at Date Recorded Not on file documented as of this encounter Discharge Disposition Disposition Code Departure Means Destination Home or Self Senior Living documented in this encounter Plan of Treatment Not on filedocumented as of this encounter Visit Diagnoses Not on filedocumented in this encounter Care Teams Linux Engineer Relationship Specialty Start Date End Date Unknown, Provider, PCP - General 08/12/14 01/05/15 documented as of this encounter
--- OUTSIDE RECORDS SUMMARY | 2021-09-15 00:32 | XMS_ITS | Encounter Summary ---
:1975 Author Organization [facility] Address [address] [place] [address] Care Team Providers Name Role Phone Leticia Franklin MD Primary Care Provider Unavailable Encounter Details Date Type Department Care Team Description 11/23/2018 Results Only [facility] Sonya Perales, [facility] [phone] [facility] [place] [address] (Wo rk) Social History Tobacco Use Types Packs/Day Years Used Date Never Assessed Sex Assigned at Date Recorded Not on file documented as of this encounter Plan of Treatment Not on filedocumented as of this encounter Procedures Procedure Name Priority Date/Time Associated Diagnosis Comme nts PAP TEST- RESULT Routine 11/23/2018 0:00 EDT Resu lts for this ONLY procedure are i n the results section. documented in this encounter Results PAP TEST- RESULT ONLY (11/23/2018 0:00 EDT) Pathology Report: CYTOPATHOLOGY REPORT [facility] Reports generated via electronic interface contain ryne ginal data; SERVICES however they are lacking the format of the original re port. Caution should be taken when reading/interpreting unfo rmatted reports. Name: ? MELISSA OCHOA ? Accession #: ? [id number] ? : ? 1975 (Age: [age]) ??F ?Collect Date: ? 11/23/2018 ? Location: ? [facility] ? Receive Date: ? 11/27/19 19 ? Provider: SONYA PERALES APPLICATION PACKAGING CONSULTANT Copy to: ? Final Report SPECIMEN ADEQUACY ? Satisfactory for Evaluation - transformation zone component present GENERAL CATEGORIZATION ? Negative for Intraepithelial Lesion or Malignan cy ?? Treatment History: Yes: S/P SUPRA CERVICAL HYST Specimen/Source: ??Pap Test, Cervix, ThinPrep Imaging System with manual evaluation Document reviewed and electronically signed by: ? Damian Bautista, VIVIAN(ASCP) ? Report ??Date: 11/27/2018 08:56 HPV with Pap Test ? Date Ordered: ? 11/27/2018 ? Status: ?? Signed Out ?Date Complete: ? 11/28/2018 ? By: ??Sy stem Interface ? Date Reported: ? 11/28/2018 ? Interpretation RESULT: Negative for HPV. No E6 or E7 mRNA is detected from HPV types 16,18,31,3 3,35, 39,45,51,52,56,58,59,66, and 68 by professor of journalism media latasha amplification. Comments Document reviewed and electronically signed by: ? System Interface ? Report date: 11/28/2018 By the signature above, the attending physician certif ies that he/she has personally conducted a gross and/or microscopic examin ation of the described specimens and rendered or confirmed the above diagnosi s. End of Report Specimen Performing Organization Address City/State/ZIP Code Phon e Number [facility] [address] [place] [address] SERVICES documented in this encounter Visit Diagnoses Not on filedocumented in this encounter Care Teams Cold Storage Worker Relationship Specialty Start Date End Date Leticia Franklin MD PCP - General 01/06/15 12/27/20 documented as of this encounter
--- OUTSIDE RECORDS SUMMARY | 2021-09-15 00:32 | XMS_ITS | Clinical Summary ---
:1975 Author Organization [facility] Address [address] [place] [address] Care Team Providers Name Role Phone Vladimir Moran Jennifer JONES Primary Care Provider [phone] Leticia Franklin MD Unavailable Unavailable Social History Tobacco Use Types Packs/Day Years Used Date Never Assessed Sex Assigned at Date Recorded Not on file Plan of Treatment Health Maintenance Due Date Last Done Comments Hepatitis C Screen 1975 COVID-19 Vaccine (1) 1978 Insurance Payer Benefit Plan / Subscriber ID Effective Phone Address T ype Group Dates [place] [id number] 2021-Prese [address] Medicaid [place] [facility] [id number] Melissa Barajas Personal/Family Self 1975 [address] [facility] (Home) [place] [address] Melissa Barajas Personal/Family Self 1975 [address] [facility] (Home) [place] [address] Melissa Barajas Personal/Family Self 1975 [address] [facility] ([place] [address] Care Teams Bilingual Teacher Relationship Specialty Start Date End Date Vladimir Moran, KAREN PCP - General 12/28/[address] [place] [address] Leticia Franklin MD 12/28/20
--- NOTE | 2021-09-15 16:15 | DI.MAMMO_ITS ---
Exam(s) MAMMO SCREENING EXAM: MAMMO SCREENING CLINICAL HISTORY: SCREENING FOR BREAST CA, Z12.39 TECHNIQUE: Mammograms were interpreted according to the usual protocol including computer analysis w Presenter[employer] CAD system, tomosynthesis and C-view imaging. COMPARISON: 2019 and 2019 mammograms and ultrasound. FINDINGS: The breasts are composed of heterogeneously dense fibroglandular densities, Breast Density category C . Again noted are innumerable circumscribed nodules in both breasts, greatest in the superior portion. Prior ultrasounds demonstrated cysts. Bilateral whole breast ultrasound is recommended to search fo r suspicious solid masses. No suspicious microcalcifications are seen. No skin thickening or abnormal axillary lymph nodes are seen. IMPRESSION: Bilateral breast ultrasound is recommended for further evaluation of multiple bilateral nodules, BI-RADS Cat 0 - Assessment Incomplete: Need additional imaging evaluation Breast Density Category C, heterogeneously Dense. The mammogram demonstrates the patient's breast tissue is dense. Dense breast tissue is very common a nd is not abnormal but dense breast tissue can make it harder to find cancer on a mammogram. Also, de nse breast tissue may increase breast cancer risk. This information about the result of the mammogram report was provided to the patient to raise their awareness. Use this report when you speak with the patient about their risks for breast cancer, which includes their family history. At that time, you may recommend additional screening tests (Ultrasound or MRI) as they might be useful based on their r isk. A negative radiographic report should not delay biopsy if a dominant or clinically suspicious mass is present. Up to ten percent of cancers are not identified on mammography. A negative report may reinforce clinical impression. Adenosis and dense breasts may obscure an underlying neoplasm. False positive reports average 6 to 10%.
== END ==
PROVIDERS: PCP Physician Assistant; Visit Provider Physician Assistant
DX: Z12.31 Encounter for screening mammogram for malignant neoplasm of breast (principal); N63.20 Unspecified lump in the left breast, unspecified quadrant; N63.10 Unspecified lump in the right breast, unspecified quadrant
CPT/HCPCS: 77063; 77067

== ENCOUNTER → 2021-09-21 02:50 | Outpatient (CLI) | payer MEDICAID, SELFPAY ==
--- NOTE | 2021-09-21 09:30 | DI.US_ITS ---
Exam(s) US BREAST LT COMPLETE US BREAST RT COMPLETE EXAM: US BREAST bilateral COMPLETE CLINICAL HISTORY: INNUMBERABLE CIRCUMSCRIBED NODULES IN BILATERAL BREASTS, GREATEST SUPERIOR TECHNIQUE: Ultrasound bilateral breast performed using standard protocol. COMPARISON: US US BREAST RT COMPLETE from 01/11/2019 US US BREAST LT COMPLETE from 01/11/2019 MG MG MAMMO SCREENING from 09/15/2021 FINDINGS: There are bilateral cysts present. The largest on the right measures 1.3 x 0.7 x 1.2 cm and is locat ed at the 9 o'clock position 3 cm from the nipple. The largest on the left measures 1.6 x 0.5 x 1.6 cm and is located at the 11 o'clock position 4 cm from the nipple. No suspicious cystic or solid mas ses are seen sonographically. Mildly dilated ducts are seen in the retroareolar region of the right breast. IMPRESSION: 1. Bilateral renal cysts. 2. No suspicious cystic or solid masses are seen sonographically. 3. Findings were discussed with the patient on the date of the examination BI-RADS Category 2 - Benign Findings DATA REPOSITORY:
== END ==
PROVIDERS: PCP Physician Assistant; Visit Provider Physician Assistant
DX: N63.15 Unspecified lump in the right breast, overlapping quadrants (principal); N63.22 Unspecified lump in the left breast, upper inner quadrant; N28.1 Cyst of kidney, acquired
CPT/HCPCS: 76642

== ENCOUNTER → 2021-12-17 13:17 | Outpatient (CLI) | payer MEDICAID, SELFPAY ==
--- NOTE | 2021-12-17 | DI.CT_ITS ---
Exam(s) CT ABDOMEN PELVIS W EXAM: CT ABDOMEN PELVIS W CLINICAL HISTORY: RLQ PAIN R10.31 MOST CONCERNED FOR APPENDICITIS. TECHNIQUE: Imaging Protocol: Axial computed tomography images with coronal and sagittal reformatted images were created and reviewed CONTRAST MATERIAL: Intravenous: Omnipaque 100cc Oral: None COMPARISON: No exams were available for comparison FINDINGS: VISUALIZED LUNG BASES: No nodules nor pleural effusions evident. ABDOMEN: There is no ascites. LIVER: There are no focal hepatic lesions evident . GALLBLADDER/BILIARY: No obvious gallbladder pathology. CBD is not dilated. PANCREAS: No evidence of pancreatic mass nor dilatation of the pancreatic duct. SPLEEN: Spleen is not enlarged. No obvious intrasplenic lesions. Splenic and portal veins are paten t. ADRENALS: There are no significant adrenal masses. KIDNEYS:No cysts evident. No solid renal masses. No calculi nor hydronephrosis.. ABDOMINAL AORTA: Abdominal aorta is not enlarged. LYMPH NODES:There is no retroperitoneal nor paraaortic adenopathy. ABDOMINAL WALL: No evidence of significant anterior abdominal wall nor inguinal hernia. GI: There is no evidence of bowel obstruction, free air, nor abscess. PELVIS: GI: Retrocecal appendix without evidence of obvious acute appendicitis.Redundant colon and sigmoid. No obvious acute diverticulitis. LYMPH NODES: There is no intrapelvic nor inguinal adenopathy. REPRODUCTIVE: Uterus and ovaries appear unremarkable. There is a 1.3 cm cyst in the left ovary incid entally noted. URINARY BLADDER: No calculi nor obvious masses evident OSSEOUS: No significant osseous lesions. IMPRESSION: 1. No evidence of acute appendicitis, as per request. 2. Redundant colon and redundant sigmoid. No evidence of obvious acute diverticulitis. No free flui d. No free air. 3. Small benign-appearing 1.3 cm cyst in the left ovary noted. RADIATION DOSE DELIVERED: 980.62mGy.cm Total DLP DATA REPOSITORY: All CT scans at this facility are submitted to the National Radiology Data Registry (NRDR) Dose Index Registry (DIR) with the [employer] (ACR). RADIATION OPTIMIZATION: All CT scans at this facility use at least one of these dose optimization te chniques: automated exposure control; mA and/or kV adjustment per patient size (includes targeted exa ms where dose is matched to clinical indication); or iterative reconstruction.
[2021-12-17 14:05] LABS: Abs Immature Grans 0.02 10^3/uL (0.0-0.06); Absolute Basophil Count 0.04 10^3/uL (0.0-0.2); Absolute Eosinophil Count 0.14 10^3/uL (0.0-0.7); Absolute Lymphocyte Count 1.54 10^3/uL (1.2-3.4); Absolute Monocyte Count 0.51 10^3/uL (0.1-0.8); Absolute Neutrophil Count 4.37 10^3/uL (1.2-6.7); Basophils % 0.6; Eosinophils % 2.1; HCT 43.6 % (36.0-46.0); HGB 15.3 g/dL (11.2-15.7); Immature Grans % 0.3; Lymphocytes % 23.3; MCH 32.7 pg (27.0-33.0); MCHC 35.1 % (32.0-36.0); MCV 93 fL (80-95); MPV 11.7 fL (8.0-11.0); Monocytes % 7.7; Platelet Count 248 10^3/uL (130-400); RBC 4.68 10^6/uL (3.93-5.22); RDW 11.7 % (11.7-14.6); RDW-SD 40.3 fL; WBC 6.62 10^3/uL (4.4-10.8)
[2021-12-17 14:23] LABS: ALT 31 U/L (14-59); AST 28 U/L (15-37); Alkaline Phosphatase 55 U/L (46-116); Anion Gap 10.3 mmol/L (3-11); BUN 11 mg/dL (7-18); Bilirubin, Total 0.6 mg/dL (0.2-1.0); CO2 25.7 mmol/L (21.0-32.0); CREATININE 0.7 mg/dL (0.55-1.02); Calcium 9.2 mg/dL (8.5-10.1); Chloride 104 mmol/L (98-107); Estimated GFR 106.62 (mL/min/1.73m2); Glucose 96 mg/dL (74-106); Potassium 3.6 mmol/L (3.5-5.1); Sodium 140 mmol/L (136-145); Total Protein 7.5 g/dL (6.4-8.2)
[2021-12-17] MEDS: Omnipaque 350 MG/ML 500 ML BTL-Imaging package IJ (14:50)
[2021-12-17] MEDS: Normal Saline Flush 10 ML SYR IVP (14:51)
== END ==
PROVIDERS: PCP Physician Assistant; Visit Provider Physician Assistant Medical
DX: R10.31 Right lower quadrant pain (principal); N83.202 Unspecified ovarian cyst, left side
CPT/HCPCS: 80053; 74177; 85025

== ENCOUNTER 2022-06-13 02:21 | Outpatient (CLI) | payer MEDICAID, SELFPAY ==
[2022-06-13 14:12] LABS: Abs Immature Grans 0.02 10^3/uL (0.0-0.06); Absolute Basophil Count 0.03 10^3/uL (0.0-0.2); Absolute Eosinophil Count 0.07 10^3/uL (0.0-0.7); Absolute Lymphocyte Count 1.35 10^3/uL (1.2-3.4); Absolute Monocyte Count 0.53 10^3/uL (0.1-0.8); Absolute Neutrophil Count 4.54 10^3/uL (1.2-6.7); Basophils % 0.5; Eosinophils % 1.1; HCT 41.6 % (36.0-46.0); HGB 14.6 g/dL (11.2-15.7); Immature Grans % 0.3; Lymphocytes % 20.6; MCHC 35.1 % (32.0-36.0); MCV 94 fL (80-95); MPV 11.2 fL (8.0-11.0); Monocytes % 8.1; Neutrophils % 69.4; Platelet Count 281 10^3/uL (130-400); RBC 4.42 10^6/uL (3.93-5.22); RDW 12.1 % (11.7-14.6); WBC 6.54 10^3/uL (4.4-10.8)
[2022-06-13 14:35] LABS: ALT 40 U/L (14-59); AST 21 U/L (15-37); Albumin 3.8 g/dL (3.4-5.0); Alkaline Phosphatase 62 U/L (46-116); Anion Gap 10.2 mmol/L (3-11); BUN 17 mg/dL (7-18); Bilirubin, Total 0.4 mg/dL (0.2-1.0); CO2 26.8 mmol/L (21.0-32.0); Calcium 9.1 mg/dL (8.5-10.1); Calculated LDL 126 mg/dL (<100); Chloride 102 mmol/L (98-107); Cholesterol 237 mg/dL (<200); Estimated GFR 69.49 (mL/min/1.73m2); Glucose 105 mg/dL (74-106); HDL Cholesterol 87 mg/dL (40-60); Potassium 3.3 mmol/L (3.5-5.1); Sodium 139 mmol/L (136-145); Total Protein 7.4 g/dL (6.4-8.2); Triglyceride 121 mg/dL (<150)
[2022-06-13 14:50] LABS: Hemoglobin A1C 5.3 % (<5.7)
[2022-06-15 11:56] LABS: TB Interpretation Negative (Negative)
== END 2022-06-13 02:22 | disposition home or self-care (01) ==
PROVIDERS: PCP Physician Assistant; Visit Provider Dermatology
DX: Z79.899 Other long term (current) drug therapy (principal); I10 Essential (primary) hypertension; R73.9 Hyperglycemia, unspecified
CPT/HCPCS: 36415; 80053; 80061; 83036; 85025; 86480

== ENCOUNTER 2024-04-12 00:30 | Outpatient (CLI) | payer MEDICAID, SELFPAY ==
--- NOTE | 2024-04-12 | DI.MAMMO_ITS ---
Exam(s) MAMMO SCREENING EXAM: MAMMO SCREENING CLINICAL HISTORY: Screening, Z12.31. TECHNIQUE: Bilateral full field digital CC and MLO mammographic images were obtained with 3D tomosyn thesis and utilizing computer aided detection (CAD). COMPARISON: Prior mammograms were reviewed. Prior bilateral breast ultrasound August 2021 was also reviewed. FINDINGS: Fibroglandular tissue pattern is again noted be moderately dense, is again noted be somewhat nodular with multiple bilateral cysts noted on prior ultrasound examination of September 21, 2021. Medial left br east skin mole also again noted. There are no new obvious left breast findings. In the right breast some of the previously described nodules in the upper outer quadrant have slightl y decreased in size. There are scattered benign-appearing microcalcifications in both breasts but no malignant-appearing microcalcification groups. There is no significant architectural distortion nor skin thickening-retraction. IMPRESSION: Dense bilateral fibroglandular tissue. Increasing size nodules in the upper quadrant of the right br east. Although these are probably increasing size cysts I recommend repeat ultrasound examination to compared to the prior ultrasound examination of 09/21/2021 to ensure event these remain benign cysts and without significant new solid internal components. BI-RADS Category 0 - Incomplete: Need additional imaging evaluation Breast Density - Category C - Heterogeneously dense Breast density Category C or D implies that the patient has dense breast tissue. Dense breast tissue can make it harder to find cancer on a mammogram. Dense breast tissue is also associated with an incr eased risk of breast cancer. This information about the result of the mammogram report was provided to the patient to raise their awareness. Use this report when you speak with the patient about their risks for breast cancer, which includes their family history. At that time, you may recommend additional screening tests (Ultrasoun d or MRI) as these tests may add significant information. A negative radiographic report should not delay biopsy if a dominant or clinically suspicious mass is present. Up to ten percent of cancers are not identified on mammography. A negative report may reinforce clinical impression. Adenosis and dense breasts may obscure an underlying neoplasm. False positive reports average 6 to 10%. Patient will receive a letter notifying them of these results.
--- OUTSIDE RECORDS SUMMARY | 2024-04-12 00:31 | XMS_ITS | Encounter Summary ---
Author Organization [facility] Address [address] [place] [address] Care Team Providers Care Rivet Hole Machine Operator Name Role Phone Leticia Franklin MD Primary Care Provider Adana ble Encounter Details Date Type Department Care Team (Latest Contact Info) Description 04/08/2015 12:52 EST - 04/08/2015 23:59 EST Hospital Encounter [facility] - [address] [address] Unknown, Provider, MD Discharge Disposition: Home or Self Care Social History Tobacco Use Types Packs/Day Years Used Date Smoking Tobacco: Never Assessed Comments Unknown Sex and Gender Information Value Date Recorded Sex Assigned at Not on file Legal Sex Female 8:00 EDT Gender Identity Not on file Sexual Orientation Not on file documented as of this encounter Discharge Disposition Disposition Code Departure Means Destination Home or Self [facility] documented in this encounter Plan of Treatment Not on file documented as of this encounter Visit Diagnoses Not on filedocumented in this encounter Care Teams Rivet Hole Machine Operator Relationship Specialty Start Date End Date Leticia Franklin MD PCP - General 01/06/15 12/27/20 documented as of this encounter
--- OUTSIDE RECORDS SUMMARY | 2024-04-12 00:31 | XMS_ITS | Encounter Summary ---
Author Organization [facility] Address [address] [place] [address] Care Team Providers Care Crawler Tractor Operator Name Role Phone Vladimir Moran [facility] Primary Care Provider [phone] Leticia Franklin MD Unavailable Unavailable Encounter Details Date Type Department Care Team (Late st Contact Info) Description 03/27/2024 Lab Requisition [facility] Pathology & Laboratory Medicine - [facility] [address] [place] [address] Vladimir Moran, RPA [address] [address] Encounter for other general examination Social History Tobacco Use Types Packs/Day Years Used Date Smoking Tobacco: Never Assessed Comments Unknown Sex and Gender Information Value Date Recorded Sex Assigned at Not on file Legal Sex Female 8:00 EDT Gender Identity Not on file Sexual Orientation Not on file documented as of this encounter Plan of Treatment Not on file documented as of this encounter Procedures Procedure Name Priority Date/Time Associated Diagnosis Comments PAP TEST Today 03/26/2024 8:50 EST Encounter for other general examination documented in this encounter Results * PAP TEST (03/26/2024 8:50 EST) Specimens A. Cervix and/or Endocervix , ThinPrep Imaging System with Manual Evaluation 04/08/2024 14:11 EST [facility] Specimen Adequacy Unsatisfactory for evaluation-Insuf ficient number of squamous epithelial cells. Specimen processed and examined but preparation compromised by lubricant or other vaginal contaminant. 04/08/2024 14:11 [facility] General Categorization Unsatisfactory 04/08/2024 14:11 [facility] Educational Comments Unsatisfactory - Specimen processed and examined, but unsatisfactory for evaluation of epithelial abnormality. Recommend repeat age-based screening after 2-4 months per ASCCP Guidelines which may be found at www.asccp.org. HPV testing will not be performed due to the potential for false negative results. 04/08/2024 14:11 [facility] Attestation . 04/08/2024 14:11 [facility] at 1410 Clinical History See below 04/08/19 14:11 [facility] Performing Lab [facility] 04/08/2024 14:11 [facility] Scanned Images 04/08/2024 14:11 [facility] Pap Test CERVIX UTERI STRUCTURE / Unknown 03/26/2024 8:50 EST 03/27/2024 11:09 EST Vladimir Moran RPA PATHOLOGY ORDERABLES Rosa l Result [facility] [address] [place], [place] [id number] documented in this encounter Visit Diagnoses Diagnosis Encounter for other general examination documented in this encounter Care Teams Crawler Tractor Operator Relationship Specialty Start Date End Date Vladimir Moran RPA [address] [facility] [address] [place], [place] [id number] PCP - General 12/28/20 Leticia Franklin MD [address] [facility] [address] [place] [address] 12/28/20 documented as of this encounter
--- OUTSIDE RECORDS SUMMARY | 2024-04-12 00:31 | XMS_ITS | Encounter Summary ---
Author Organization [facility] Address [address] [place] [address] Care Team Providers Care Combine Mechanic Name Role Phone Vladimir Moran [facility] Primary Care Provider [phone] Leticia Franklin MD Unavailable Unavailable Encounter Details Date Type Department Care Team (Late st Contact Info) Description 02/03/2021 Lab Requisition [facility] Pathology & Laboratory Medicine - [facility] [address] [place] [address] Janet Sanchez MD [address] [place] [phone] Encounter for other general examination Social History [...] Procedure Name Priority Date/Time Associated Diagnosis Comments SURGICAL PATHOLOGY Today 02/03/2021 10 :29 EST Encounter for other general examination documented in this encounter Results * SURGICAL PATHOLOGY (02/03/2021 10:29 EST) Note to Patient The following pathology results have been interpreted by your pathologist and may be available to you before your health provider has had the opportunity to review them. Please allow time for your provider to receive these results and explore management options, if applicable. 02/05/2021 10:42 [facility] Final Diagnosis A. STOMACH, ANTRUM/BODY, BIOPSY: - Antral-type mucosa with no significant diagnostic abnormality. - Oxyntic-type mucosa with no significant diagnostic abnormality. B. STOMACH, CARDIA, BIOPSY: - Oxyntic-type mucosa with no significant diagnostic abnormality. C. GASTROESOPHAGEAL JUNCTION, BIOPSY: - Squamocolumnar junctional mucosa with reactive changes. - Negative for intestinal metaplasia. - Negative for dysplasia. D. COLON, CECUM, BIOPSY: - Tubular adenoma. 02/05/2021 10:42 [facility] Attestation By the signature below, the attending physician certifies that they have 1) personally conducted a gross and/or microscopic examination of the described specimen(s), and/or personally interpreted the results of laboratory testing of the described specimen(s), and 2) personally rendered or confirmed the above diagnosis. 02/05/2021 10:42 [facility] at 1042 Clinical History Abdominal pain; polyp 02/05/2021 10:42 [facility] Gross Description A. Received in formalin labelled with proper patient identification (initials M, A) and 1. Antrum Bx + body are 3 page-brown tissues (0.5 x 0.3 x 0.2 cm to 0.6 x 0.4 x 0.2 cm). Entirely submitted in A1. B. Received in formalin labelled with proper patient identification (initials M, A) and 2. Cardia is a page-brown tissue (0.6 x 0.2 x 0.1 cm). Entirely submitted in B1. C. Received in formalin labelled with proper patient identification (initials M, A) and 3. GE junction are 2 white-page tissues (0.3 x 0.3 x 0.1 cm and 0.6 x 0.2 x 0.1 cm). Entirely submitted in C1. D. Received in formalin labelled with proper patient identification (initials M, A) and 4. Cecal polyp is a page-brown tissue (0.6 x 0.2 x 0.1 cm). Entirely submitted in D1. ISABELL MARIE(ASCP) 02/04/2021 7:53 02/05/2021 10:42 EST [facility] Performing Lab [facility] 10:42 EST [facility] Scanned Images 02/05/2021 10:42 EST [facility] Tissue CECUM STRUCTURE / Unknown 02/03/2021 10:29 EST 02/03/2021 16:44 EST Tissue specimen (specimen) STOMACH STRUCTURE / Unknown 02/03/2021 10:29 EST 02/03/2021 16:44 EST Tissue specimen (specimen) ESOPHAGEAL STRUCTURE / Unknown 02/03/2021 10:29 EST 02/03/2021 16:44 EST Tissue specimen (specimen) CECUM STRUCTURE / Unknown 02/03/2021 10:29 EST 02/03/2021 16:44 EST us Janet Sanchez MD PATHOLOGY ORDERABLES Fin al Result Performing Organization Address City/State/[facility] Co de Phone Number [facility] [address] [place] [address] documented in this encounter Visit Diagnoses Diagnosis Encounter for other general examination documented in this encounter Care Teams Combine Mechanic Relationship Specialty Start Date End Date Vladimir Moran RPA [address] [address] PCP - General 12/28/20 Leticia Franklin MD [address] [address] 12/28/20 documented as of this encounter
--- OUTSIDE RECORDS SUMMARY | 2024-04-12 00:31 | XMS_ITS | Encounter Summary ---
Author Organization [facility] [place] [address] Care Team Providers Care Food Service Attendant Name Role Phone None Primary Care Provider Unavailabl e Encounter Details Date Type Department Care Team (Late st Contact Info) Description 03/01/2023 2:45 PM EST Office Visit Dermatology [facility] [address] [place] [address] Didier Centeno MD [address] [facility] [place] [address] Alopecia areata Social History Tobacco Use Types Packs/Day Years Used Date Smoking Tobacco: Never Smokeless Tobacco: Never Sex and Gender Information Value Date Recorded Sex Assigned at Not on file Gender Identity Not on file Sexual Orientation Not on file documented as of this encounter Progress Notes * Didier Centeno MD - 03/01/2023 2:45 PM EST Images from the original note were not included. DEPARTMENT OF DERMATOLOGY Medical Dermatology Clinic Provider: Didier Centeno MD FAAD at Dermatology [facility] Patient's preferred name Melissa PAST MEDICAL HISTORY (if blank, patient denies history) Melanoma - Dysplastic nevi - SCC - BCC - [place] [] cryotherapy [] efudex [] PDT [] Other Relevant Medications [] Immunosuppression [] Transplant [] Oncogenic medication [] Nicotinamide 500mg po bid Alopecia Areata ILK Other relevant history FAMILY HISTORY (if blank, patient denies history) Melanoma - NMSC - Other relevant history SOCIAL HISTORY Last seen 10/26/2022. History of Present Illness: Mleissa Rhonda BARAJAS is 47 y.o. and here for the following: History of alopecia areata on the scalp status post serial [place] Kenalog injections with recurrence atthe same location on the occipital scalp since Jan 2023. Antecedent History: History of patch of spreading but asymptomatic hair loss on the left side of the scalp since Oct 2015. No known triggers. No history of autoimmune disorders. Never been biopsied. Treated with ILK with variableresponse. Insurance has thus far denied XTRAC phototherapy, Opzelura to pical, and baricitinib Medications: Reviewed in eD-H Allergies: Reviewed in eD-H Skin Examination Standby: Janes Barr CMA Well developed, well-nourished in no apparent distress, alert and oriented to time, person, place and situation. Focused examination of the skin of the scalp significant for the following: Exam Findings/Assessment/Plan Alopecia Areata Three 2-3cm patches of non-scarring alopecia on the occipital scalp. Flaring. Did not treat at last visit due to significant regrowth. Recommend ILK injections today. If no improvement, recommend baricitinib tablet Reviewed clinical impression and recommendation, as above. Discussed major risk of intralesional Kenalog including skin atrophy. Answered all questions. Patient elects repeat intralesional Kenalog Procedure Intralesional Kenalog injection ? Reviewed off label use and reviewed risks including irritation, swelling, pain, incomplete resolution, infection, and scarring. Verbal consent obtained. Skin area cleaned with alcohol swab. Kenalog injected today ? [facility]: [id number] LOT: [id number] EXP: 11/2023 1mL of 40mg/mL (40mg) Kenalog were injected into the following sites: Occipital scalp Wound care: soapy gentle wash daily Re-evaluate and possible re-treatment in 6-8 weeks If no improvement, consider baricitinib Follow-up: 6-8 weeks for alopecia areata follow up. Return sooner as needed for suspicious lesion, new or worsening dermatitis. [] Recall placed [] Forwarded to garment alteration examiner [x] Patient scheduled before exiting Scribe attestation: Janes Barr CMA has performed the documentation for this encounter inthe presence of and acting as a scribe for MD LAWSON Regalado. I performed the above scribed service and agree with the accuracy of the documentation in this encounter. Reviewed and signed by: Didier Centeno MD FAAD Dermatology [facility] documented in this encounter Plan of Treatment Upcoming Encounters Date Type Department Care Team (Late st Contact Info) Description 05/22/2024 4:45 PM EDT Office Visit Dermatology at [facility] [address] [place] [address] Didier Centeno MD [address] [facility] [place] [address] documented as of this encounter Visit Diagnoses Diagnosis Alopecia areata documented in this encounter Administered Medications Inactive Administered Medications - up to 3 most recent administrations Medication Order MAR Action Action Date Dose Rate Site triamcinolone acetonide (Kenalog) (10 mg/mL) injection 40 mg 40 mg, Intra-Lesional, ONCE, 1 dose, On Mon03/01/23 at 1745, Routine Given 03/01/2023 3:00 PM EST 40 mg 20-Other (document in comment section) documented in this encounter Care Teams Food Service Attendant Relationship Specialty Start Date End Date None None PCP - General 04/09/21 documented as of this encounter
--- OUTSIDE RECORDS SUMMARY | 2024-04-12 00:31 | XMS_ITS | Encounter Summary ---
Author Organization [facility] Address [address] [facility] [place] [address] Care Team Providers Care Booster Operator Name Role Phone None Primary Care Provider Unavaillegacy [facility] e Encounter Details Date Type Department Care Team (Latest Contact Info) Description 03/01/2023 Travel Social History Tobacco Use Types Packs/Day [...] 4:45 PM EDT Office Visit Dermatology at [facility] [address] [place] [address] Didier Centeno MD [address] [facility] [place] [address] documented as of this encounter Visit Diagnoses Not on filedocumented in this encounter Care Teams Booster Operator Relationship Specialty Start Date End Date None None PCP - General 04/09/21 documented as of this encounter
--- OUTSIDE RECORDS SUMMARY | 2024-04-12 00:31 | XMS_ITS | Encounter Summary ---
Author Organization [facility] Address [address] [place] [address] Care Team Providers Care Secondary Special Education Teacher Name Role Phone Vladimir Moran [facility] Primary Care Provider [phone] Leticia Franklin MD Unavailable Unavailable Encounter Details Date Type Department Care Team (Late st Contact Info) Description 06/14/2022 Lab Requisition [facility] Pathology & Laboratory Medicine - [facility] [address] [place] [address] Outr Resulting Lab, Provider Social History Tobacco Use Types Packs/Day Years [...] Procedure Name Priority Date/Time Associated Diagnosis Comments QUANTIFERON MITOGEN (PERFORMABLE) Today 06/13/2022 14:00 EDT QUANTIFERON TB2 (PERFORMABLE) Today 06/13/2022 14:00 EDT QUANTIFERON TB1 (PERFORMABLE) Today 06/13/2022 14:00 EDT QUANTIFERON NIL (PERFORMABLE) Today 06/13/2022 14:00 EDT QUANTIFERON INTERPRETATION (PERFORMABLE) Today 06/13/2022 14:00 EDT QUANTIFERON TB GOLD PLUS Routine 06/13/2022 14:00 EDT documented in this encounter Results * QUANTIFERON INTERPRETATION (PERFORMABLE) (06/13/2022 14:00 EDT) Quantiferon Interpretation Negative Negative 06/15/2022 11:51 EDT [facility] Comment:No interferon-gamma response to M. tuberculosis antigens was detected. ??Infection with M. tuberculosis is unlikely. A single negative result does not exclude infection with M. tuberculosis. ??In patients at high risk for M. tuberculosis infection, a second test should be considered. TB1 Ag minus Nil 0.00 IU/ml 06/16/19 11:51 EDT [facility] TB2 Ag minus Nil 0.00 IU/mL 06/16/19 11:51 EDT [facility] Blood VENOUS BLOOD / Unknown 06/13/2022 14:00 EDT 06/15/2022 11:42 EDT Narrative [facility] - 06/15/2022 11:51 EDT Results were obtained with the [employer] QuantiFERON-TB Gold Plus CLIA. New platform in use 11/04/2020 us Provider Outr Resulting Lab IMMUNOLOGY AND SEROL OGY ORDERABLES Final Result Performing Organization Address [facility] Co de Phone Number [facility] [address] [place] [id number] * QUANTIFERON MITOGEN (PERFORMABLE) (06/13/2022 14:00 EDT) Blood VENOUS BLOOD / Unknown 06/13/2022 14:00 EDT 06/14/2022 17:35 EDT us Provider Outr Resulting Lab IMMUNOLOGY AND SEROL OGY ORDERABLES Final Result Performing Organization Address [facility]/ZIP Co de Phone Number [facility] [address] [place] [address] * QUANTIFERON TB2 (PERFORMABLE) (06/13/2022 14:00 EDT) Blood VENOUS BLOOD / Unknown 06/13/2022 14:00 EDT 06/14/2022 17:35 EDT us Provider Outr Resulting Lab IMMUNOLOGY AND SEROL OGY ORDERABLES Final Result Performing Organization Address [facility] Co de Phone Number [facility] [address] [place] [address] * QUANTIFERON TB1 (PERFORMABLE) (06/13/2022 14:00 EDT) Blood VENOUS BLOOD / Unknown 06/13/2022 14:00 EDT 06/14/2022 17:35 EDT us Provider Outr Resulting Lab IMMUNOLOGY AND SEROL OGY ORDERABLES Final Result Performing Organization Address [facility] Co de Phone Number [facility] [address] [place] [address] * QUANTIFERON NIL (PERFORMABLE) (06/13/2022 14:00 EDT) Blood VENOUS BLOOD / Unknown 06/13/2022 14:00 EDT 06/14/2022 17:35 EDT us Provider Outr Resulting Lab IMMUNOLOGY AND SEROL OGY ORDERABLES Final Result Performing Organization Address [facility] Co de Phone Number [facility] [address] [place] [address] documented in this encounter Visit Diagnoses Not on filedocumented in this encounter Care Teams Secondary Special Education Teacher Relationship Specialty Start Date End Date Vladimir Moran RPA [address] [facility] [address] [place] [address] PCP - General 12/28/20 Leticia Franklin MD [address] [facility] [address] [place] [address] 12/28/20 documented as of this encounter
--- OUTSIDE RECORDS SUMMARY | 2024-04-12 00:31 | XMS_ITS | Clinical Summary ---
Author Organization [facility] Address [address] [facility] [place] [address] Care Team Providers Care Household Appliances Salesperson Name Role Phone None Primary Care Provider Unavailabl e Allergies No known active allergies Medications Medication Sig Dispensed Refills Start Date End Date Status pantoprazole EC (Protonix) 40 mg Tablet, Delayed Release (E.C.) TAKE 1 TABLET BY MOUTH DAILY 02/03/2021 Active amLODIPine (Norvasc) 10 mg Tablet Take 10 mg by mouth daily. 06/22/2021 Active Active Problems No known active problems Encounters Date Type Department Care Team Description 04/08/2024 Telephone Dermatology at [facility] [address] [place] [address] Didier Centeno MD from Last 3 Months Social History Tobacco Use Types Packs/Day Years Used Date Smoking Tobacco: Never Smokeless Tobacco: Never Sex and Gender Information Value Date Recorded Sex Assigned at Not on file Gender Identity Not on file Sexual Orientation Not on file Plan of Treatment Upcoming Encounters Date Type Department Care Team (Late st Contact Info) Description 05/22/2024 4:45 PM EDT Office Visit Dermatology at [facility] [address] [place] [address] Didier Centeno MD [address] [facility] [place] [place] [address] Health Maintenance Due Date Last Done Comments CT Colonography 1973 Colonoscopy 1973 Colorectal Cancer Screening 1973 FIT DNA 1973 FIT 1973 Sigmoidoscopy (10 year) with FIT yearly 1973 Sigmoidoscopy 1973 HIV screen 10/25/1991 Hepatitis C Screening 10/25/1991 Hepatitis B vaccine (0-59 yrs) (1) 1992 Tetanus/Diphtheria/Pertussis Vaccines (1 - Tdap) 10/24 HPV test 10/25/2003 Breast Cancer Share Decision Needed 2013 Breast Cancer screening 2013 PAP Smear 06/17/2015 06/16/2010 Pneumoccocal Vaccine: 50+ (1 of 1 - PCV) 10/25/2023 Zoster vaccine (1 of 2) 10/25/2023 Covid-19 Vaccine (1 - 2023- season) 2023 Influenza (Flu) vaccine (1 o f 1 - Influenza standard series) 10/29/2023 Procedures Procedure Name Priority Date/Time Associated Diagnosis Comments DOG BARBER CYTOLOGY FINAL REPORT Routine 06/16/2010 8:00 PM EDT from Last 3 Months or Most Recently Relevant to Health Maintenance Results * DOG BARBER CYTOLOGY FINAL REPORT (06/16/2010 8:00 PM EDT) Latrine Cleaner Cytology Final Report ? [facility] ? Provider: ?? PRIYANKA THOMAS ? Pt. Name: ?? MELISSA GOLDBERG ? Acc #: ?[id number] ?Pt. ? Col Date: ?? 06/16/2010 ? /Sex: ?1975,(34 years),Female ? Rec Date: ?? 06/21/2010 ? LOC: ?[facility] ? CYTOPATHOLOGY: ??DOG BARBER ? ---Adequacy--- ? Specimen submitted is satisfactory. ? Endocervical component present. ? ---Cytopathologic Diagnosis--- ? NORMAL ? Negative for Intraepithelial Lesion or Malignancy (NILM). ? 06/24/10 ?? Screened by: ??DMG ? 06/24/10 ?? Verified by: ??Brennan PARK(ASCP), Charlene Davidson - Disease Case Manager ? ---Clinical Information--- ? Hormones?: ?No ? Hysterectomy?: ?No ?: ?No ?: ?No ? I.U.D.?: ?No ? Pelvic Radiation: ? No ? Prior DOG BARBER Therapy?: ? No ? Hist Abnl Pap/Biopsy?: ??No ? --- ? HPV Option: ? Reflex HPV ? Specimen Source: ?Cervical Endocervical LBP ? Preparation: ?Liquid Based Pap ? LMP: ?05/31/2010 ? --- ? Hist of HPV Vaccine?: ?? (not provided) ? Hist of Smoking?: ? (not provided) ? Hist of CHRIS exposure?: ??(not provided) ? Clinical Data, Significant Therapy and Clinical Impression: ?_ ? This Pap Test has been evaluated with the assistance of the ThinPrep Pap ? Test Imaging System. ? Note: ? The Pap test is a screening test for cervical cancer with an inherent ? false-negative rate dependent upon several variables. ??For further ? information please contact the [facility]. ? [facility] ? Provider: ?? PRIYANKA THOMAS ? Pt. Name: ?? MELISSA GOLDBERG ? Acc #: ?[id number] ?Pt. ? Col Date: ?? 06/16/2010 ? /Sex: ?1975,(34 years),Female ? Rec Date: ?? 06/21/2010 ? LOC: ?[facility] ? CYTOPATHOLOGY: ??DOG BARBER ? Reference: ??Abyue CS. ??Consulting Nurse of Pap Smear Results. ??In: ? Silviano BS, Noel HH, ed. ??The Pap Smear. ??[place]: ??Bro, 2002: ? 71-77. MEL VIERA 06/16/2010 8:00 PM EDT Priyanka Thomas GASOLINE PUMP INSTALLER PATHOLOGY/CYTOLOGY O RDERABLES [facility] from Last 3 Months or Most Recently Relevant to Health Maintenance Care Teams Household Appliances Salesperson Relationship Specialty Start Date End Date None None PCP - General 04/09/21
--- OUTSIDE RECORDS SUMMARY | 2024-04-12 00:31 | XMS_ITS | Referral Summary ---
Author Organization [facility] Address [address] [place] [address] Care Team Providers Care Cat Hooker Name Role Phone Vladimir Moran RPA Primary Care Provider [phone] Leticia Franklin MD Unavailable Unavailable Encounters Date Type Department Care Team Description 03/27/2024 Lab Requisition [facility] Pathology & Laboratory Medicine - [facility] [address] [place] [address] Vladimir Moran, KAREN Encounter for other general examination from Last 3 Months Social History Tobacco Use Types Packs/Day Years Used Date Smoking Tobacco: Never Assessed Comments Unknown Sex and Gender Information Value Date Recorded Sex Assigned at Not on file Legal Sex Female 8:00 EDT Gender Identity Not on file Sexual Orientation Not on file Plan of Treatment Not on file Procedures Procedure Name Priority Date/Time Associated Diagnosis Comments PAP TEST Today 03/26/2024 8:50 EST Encounter for other general examination from Last 3 Months Results * PAP TEST (03/26/2024 8:50 EST) Specimens A. Cervix and/or Endocervix , ThinPrep Imaging System with Manual Evaluation 04/08/2024 14:11 [facility] Specimen Adequacy Unsatisfactory for evaluation-Insuf ficient number of squamous epithelial cells. Specimen processed and examined but preparation compromised by lubricant or other vaginal contaminant. 04/08/2024 14:11 [facility] General Categorization Unsatisfactory 04/08/2024 14:11 [facility] Educational Comments Unsatisfactory - Specimen processed and examined, but unsatisfactory for evaluation of epithelial abnormality. Recommend repeat age-based screening after 2-4 months per ASCCP Guidelines which may be found at www.asccp.org. HPV testing will not be performed due to the potential for false negative results. 04/08/2024 14:11 [facility] Attestation . 04/08/2024 14:11 [facility] at 1410 Clinical History See below 04/08/19 14:11 [facility] Performing Lab [facility] 04/08/2024 14:11 [facility] Scanned Images 04/08/2024 14:11 [facility] Pap Test CERVIX UTERI STRUCTURE / Unknown 03/26/2024 8:50 EST 03/27/2024 11:09 EST us Vladimir Moran [facility] PATHOLOGY ORDERABLES Rosa l Result [facility] [address] [place] [address] from Last 3 Months Insurance [place]ICAID [place] Care Teams Cat Hooker Relationship Specialty Start Date End Date Vladimir Moran RPA [address] [address] PCP - General 12/28/20 Leticia Franklin MD [address] [employer] [address] [address] 12/28/20
--- OUTSIDE RECORDS SUMMARY | 2024-04-12 00:31 | XMS_ITS | Encounter Summary ---
Author Organization [facility] Address [address] [place] [address] Care Team Providers Care Venetian Blind Washer Name Role Phone Leticia Franklin MD Primary Care Provider Adana ble Encounter Details Date Type Department Care Team (Late st Contact Info) Description 11/23/2018 Results Only [facility] [phone] Sonya Perales, [facility] [address] [place] [phone] Social History Tobacco Use Types Packs/Day Years [...] Name Priority Date/Time Associated Diagnosis Comments PAP TEST- RESULT ONLY Routine 11/23/2018 0:00 EDT documented in this encounter Results * PAP TEST- RESULT ONLY (11/23/2018 0:00 EDT) Pathology Report: CYTOPATHOLOGY REPORT Reports generated via electronic interface contain original data; however they are lacking the format of the original report. Caution should be taken when reading/interpreti ng unformatted reports. Name: ? DON MELISSA ? Accession #: ? [id number] ? : ? 1975 (Age: 43) ??F ?Collect Date: ? 11/23/2018 ? Location: ? [facility] ? Receive Date: ? 11/26/2018 ? Provider: SONYA PERALES EFFERVESCENT SALTS COMPOUNDER Copy to: ? Final Report SPECIMEN ADEQUACY ? Satisfactory for Evaluation - transformation zone component present GENERAL CATEGORIZATION ? Negative for Intraepithelial Lesion or Malignancy ?? Treatment History: Yes: S/P SUPRA CERVICAL HYST Specimen/Source: ??Pap Test, Cervix, ThinPrep Imaging System with manual evaluation Document reviewed and electronically signed by: ? VIVIAN Jeffers(ASCP) ? Report ??Date: 11/27/2018 08:56 HPV with Pap Test ? Date Ordered: ? 11/27/2018 ? Status: ?? Signed Out ?Date Complete: ? 11/28/2018 ? By: ??System Interface ? Date Reported: ? 11/28/2018 ? Interpretation RESULT: Negative for HPV. No E6 or E7 mRNA is detected from HPV types 16,18,31,33,35, 39,45,51,52,56,58, 59,66, and 68 by soaker meat mediated amplification. Comments Document reviewed and electronically signed by: ? System Interface ? Report date: 11/28/2018 By the signature above, the attending physician certifies that he/she has personally conducted a gross and/or microscopic examination of the described specimens and rendered or confirmed the above diagnosis. End of Report [facility] 11/23/2018 11/26/2018 Sonya Perales EFFERVESCENT SALTS COMPOUNDER PATHOLOGY ORDERABLES Final R esult [facility] [address] [place] [address] documented in this encounter Visit Diagnoses Not on filedocumented in this encounter Care Teams Venetian Blind Washer Relationship Specialty Start Date End Date Leticia Franklin MD PCP - General 01/06/15 12/27/20 documented as of this encounter
--- OUTSIDE RECORDS SUMMARY | 2024-04-12 00:31 | XMS_ITS | Encounter Summary ---
Author Organization [facility] Address [address] [place] [address] Care Team Providers Care President & Ceo Name Role Phone Leticia Franklin MD Primary Care Provider Vladimir Ghotra [facility] Primary Care Provider [phone] Leticia Franklin MD Unavailable Unavailable Encounter Details Date Type Department Care Team (Late st Contact Info) Description 08/08/2020 Lab Requisition [facility] Pathology & Laboratory Medicine - [address] [address] Outr Resulting Lab, Provider Social History Tobacco [...] Procedure Name Priority Date/Time Associated Diagnosis Comments ZZCOVID-19 TEST [facility] PCR Today 08/07/2020 13:45 EDT COVID-19 TESTING Routine 08/07/2020 13:4 5 EDT documented in this encounter Results * COVID-19 TEST [facility] PCR (08/07/2020 13:45 EDT) Swab ENTIRE NASOPHARYNX / Unknown 08/07/2020 13:45 EDT 08/08/2020 20:52 EDT us Provider Outr Resulting Lab MICROBIOLOGY - GENER AL ORDERABLES Final Result [facility] [address] [place] [address] * (ABNORMAL) COVID-19 TESTING (08/07/2020 13:45 EDT) COVID-19 rt-PCR Result Positive( AA) Negative 08/09/2020 14:10 EDT [facility] Comment: This test has not been FDA cleared or approved. This test has been authorized by FDA under an EUA for use by authorized laboratories. This test has been authorized only for detection of nucleic acid from 2019-nCoV, not for any other viruses or pathogens. This test is only authorized for the duration of the declaration that circumstances exist justifying the authorization of emergency use of in vitro diagnostic tests for detection and/or diagnosis of 2019-nCoV under section 564(b)(1) of Act, 21 U.S.C ?? 360bbb-3(b) (1), unless the authorization is terminated or revoked sooner. This test was developed and its performance characteristics determined by [facility]. It has not been cleared or approved by the US Food and Drug Administration. FDA does not require this test to go through premarket FDA review. This test is used for clinical purposes. It should not be regarded as investigational or for research. This laboratory is certified under the Clinical Laboratory Improvement Amendments (CLIA) as qualified to perform high complexity clinical laboratory testing. This test is based on the [facility] COVID-19 Emergency Use Authorization (EUA) assay, with minor modification as defined by the FDA Performed on the [employer] 7 Pro RT-PCR System. Performing Lab [facility] Lab 08/09/2020 14:10 EDT [facility] Swab 08/07/2020 13:4 5 EDT 08/08/2020 20:52 EDT us Provider Outr Resulting Lab MICROBIOLOGY - GENER AL ORDERABLES Final Result [facility] [address] [place] [address] documented in this encounter Visit Diagnoses Not on filedocumented in this encounter Additional Health Concerns Infection Onset Date Last Indicated Resolved Time COVID-19 08/07/2020 08/07/2020 09/06/2020 22:1 5 EDT documented as of this encounter Care Teams President & Ceo Relationship Specialty Start Date End Date Leticia Franklin MD PCP - General 01/06/15 12/27/20 Vladimir Moran [facility] [address] [place] [id number] PCP - General 12/28/20 Leticia Franklin MD 12/28/20 documented as of this encounter
--- OUTSIDE RECORDS SUMMARY | 2024-04-12 00:31 | XMS_ITS | Encounter Summary ---
Author Organization [facility] [address] [facility] [place] [address] Care Team Providers Care Cisco Certified Network Associate Name Role Phone None Primary Care Provider Unavailabl e Reason for Visit * Reason Onset Date Comments Research 10/27/2022 Encounter Details Date Type Department Care Team (Late st Contact Info) Description 10/27/2022 Notes Only Dermatology at [facility] [address] [place] [address] Erlinda Montes Research Social History Tobacco Use Types Packs/Day Years Used Date Smoking Tobacco: Never Smokeless Tobacco: Never Sex and Gender Information Value Date Recorded Sex Assigned at Not on file Gender Identity Not on file Sexual Orientation Not on file documented as of this encounter Progress Notes * Erlinda Montes - 10/27/2022 2:33 PM EDT RESEARCH STUDY VISIT PROTOCOL: TARGET-DERM A 5-year Longitudinal Observational Study of Patients Undergoing Therapy for Immune-Mediated Inflammatory Skin Conditions [facility] [id number] PI: Rory Foster MD Sub-I: Anurag Ruiz MD, Mirian Chandra MD, Didier Centeno MD, Violetta Orozco MD, Dione Aaron MD, Stephane Garg MD, Avinash Fleming MD, Katina Almazan MD Subject #: [id number] Visit: Screening/Month 0 10/26/22 Melissa BARAJAS is a 47 y.o. female with history of Alopecia Areata. she was seen in the Dermatology clinic today for a follow up visit Physician assessments: Alopecia Areata Physician Assessments were completed by Dr. Centeno Biospecimen: Subject opted for saliva sample which was collected today and patient tolerated it well. Erlinda Montes Research Fellow - Dermatology documented in this encounter Plan of Treatment Upcoming Encounters Date Type Department Care Team (Late st Contact Info) Description 05/22/2024 4:45 PM EDT Office Visit Dermatology at [facility] [address] [place] [phone] Didier Centeno MD [address] [facility] [place] [address] documented as of this encounter Visit Diagnoses Not on filedocumented in this encounter Care Teams Cisco Certified Network Associate Relationship Specialty Start Date End Date None None PCP - General 04/09/21 documented as of this encounter
--- OUTSIDE RECORDS SUMMARY | 2024-04-12 00:31 | XMS_ITS | Encounter Summary ---
Author Organization [facility] [place] [address] Care Team Providers Care Retail Team Member Name Role Phone None Primary Care Provider Unavailabl e Reason for Visit * Reason Comments Patient Education Encounter Details Date Type Department Care Team (Late st Contact Info) Description 04/26/2023 Specialty [place] [address] Saul Kearney Ashley Social History Tobacco Use Types Packs/Day Years Used Date Smoking Tobacco: Never Smokeless Tobacco: Never Sex and Gender Information Value Date Recorded Sex Assigned at Not on file Gender Identity Not on file Sexual Orientation Not on file documented as of this encounter Progress Notes * Saul Kearney RPH - 04/26/2023 2:40 PM EST Specialty Pharmacy Initial Consultation; Saul Kearney RPH Comprehensive Medication Management (CMM) Melissa J Karl Diagnosis: Alopecia Areata Therapy Start Date: TBD - New Start Contact in person or via telephone: In person Ms. Melissa Barajas is a 47 y.o. (1975) female who was contacted in regard to specialty medication. Spoke with patient regarding Olumiant. A review of the medication therapy was performed. Is the patient willing to proceed with the Clinical Assessment? Yes Summary and Recommendations: A comprehensive review of Olumiant was discussed with the patient. Topics covered included: Review of patient's dose and indication. Common side effects of Olumiant were reviewed such as signs of a common cold, headache, and acne Warnings/precautions & contraindications: risk of serious infection was discussed and patient is aware to avoid all live vaccines. The patient is also aware of the rare but serious warnings such as malignancy, thrombosis, and major cardiac events. Education provided on the importance of infection prevention including hand hygiene and avoiding sick contacts. Monitoring/safety parameters: discussed baseline/follow-up lab monitoring Other topics discussed: drug mechanism of action, possible drug and/or food interactions, and anticipated time to effect Medication and allergy review completed Patient made aware of the prior authorization process and timeline. Patient was provided with [facility] contact information. Clinic follow-up needed: yes - ongoing clinic follow up and lab monitoring. Allergies and Drug intolerance: No Known Allergies Problem List: There is no problem list on file for this patient. Special Dietary or Hydration Requirements: no Medication Reconciliation Discrepancies (compared to [facility] med list) -N/A Medication List: Current Outpatient Medications Medication Sig Dispense Refill amLODIPine (Norvasc) 10 mg Tablet Take 10 mg by mouth daily. pantoprazole EC (Protonix) 40 mg Tablet, Delayed Release (E.C.) TAKE 1 TABLET BY MOUTH DAILY No current facility-administered medications for this visit. Most Recent Vitals: Ht Readings from Last 1 Encounters: No data found for Ht Wt Readings from Last 3 Encounters: No data found for Wt Temp Readings from Last 3 Encounters: No data found for Temp BP Readings from Last 3 Encounters: No data found for BP Pulse Readings from Last 3 Encounters: No data found for Pulse There is no height or weight on file to calculate BMI. Pertinent Lab values: No results found for: ALT, AST, GGT, ALKPHOS, BILITOT, BILIDIR, ALBUMIN, PROT No results found for: WBC, HGB, HCT, MCV, PLATELET No results found for: HA1C There is no immunization history on file for this patient. Assessment and Recommendations: Patient Counseling Patient informed of specialty services: Yes Patient accepted offer to intellectual property counsel: select all, adherence/missed doses, cost of medications/cost implications, doses and administration, possible drug/OTC drug and food interactions, possible adverse side effects and management, pharmacy contact information, lab monitoring/follow up, possible drug/Rx drug interactions, safe handling, storage, and disposal, therapeutic rationale Medication Management Summary Topics discussed: reviewed medication changes since last visit, medication safety precautions education provided, drug interaction education provided to patient, safe handling, storage, and disposal discussed, possible adverse effects and management discussed, lab monitoring and follow-up discussed, cost of medications and cost implications discussed, adherence and missed doses discussed, health goals discussed, monitoring medication discussed, preventative care discussed, reminder to refill or pickling tank operator medication discussed, self-monitoring discussed, start medication discussed, timing of medications discussed, vaccination discussed, referral needs discussed Treatment Outcomes 04/26/2023 1442 Disease progression: Stable Patient Overall Status: Stable Reviewed in detail with patient: Dose appropriateness based on recommended standard dosing Current medication list including OTC medications Medication and disease problems Allergies Comorbid conditions/ Problem List Past adverse events if any Special needs of the patient including physical and cognitive limitations Goals of therapy and management strategies Warnings, precautions, and contraindications Side effects Drug-drug and drug-food interactions Administration instructions including dose, frequency and method Handling, storage, and disposal Verifying expiration dates on products before use Rotating medication inventory to use oldest product first Relevant lab data Treatments impact on disease Dose appropriateness based on recommended standard dosing schedule, including any variations from FDA approved dosing Patient verbalizes understanding and is able to read-back instructions on self-administration/injection, proper storage, drug stability, importance of adherence and management strategies, side effect avoidance and mitigation strategies, and interruptions in therapy: Yes Patient is aware a licensed pharmacist is available 24 hours a day, 7 days a week to discuss medication-related questions or concerns: Yes Patient verbalizes understanding of the common side effect profile of their medication. The patient is able to call 911 or seek urgent care if signs/symptoms of allergy or harmful adverse reactions occur: Yes Additional care/services needed: No Additional equipment/supplies required: No Patient satisfied with care/services provided: Yes Specialty Assessment: Physical and Cognitive Assessment: Functional limitations identified: No Cognitive limitations identified: No Concern regarding orientation/memory: No Concern with reasoning/judgement: No Is patient a fall risk: No Social Assessment: Does patient have a primary primary care sales representative: No Does patient have an emergency contact on file: Yes Does patient need referral to psychotherapist social worker: No Does patient need referral to advocacy group: No Home Health Assessment: Is the patient in a safe home environment?: Yes Is the patient able to store their medication as directed?: Yes Does the patient have a support network at home?: Yes Reviewed potential home safety hazards with patient: Yes Economic Assessment: Patient is agreeable to medication copay: Other (see comments) (Comment: TBD - New Start) Welcome Packet and Rights and Responsibilities: Specialty Med Adherence Patient Demonstrates Understanding of Importance of Adherence: Yes Educational Information or Adherence Tools Provided: Yes Therapy Assessment: Current Medication Dosing/Route/Frequency: Olumiant 2mg tablets Take one tablet by mouth once daily Appropriate Therapy: Yes Current Affected Areas: Scalp Total BSA involved: unknown Recent Skin Exacerbations/Flaring: no Recent Topical Corticosteroid Use: no Relapsing/Remitting Factors: yes - recurring at the same locations Diagnosis of Psoriatic Arthritis: No Patient's Problems/Needs: Additional treatment for uncontrolled alopecia areata Expected Outcome: Hair growth and reduction of hair loss Treatment Outcome: Therapy initiated Patient's goals: Patient's specific desired goal: Hair regrowth and a reduction of hair loss, specifically a reducedarea affected by AA (3x2cm, and 3cm patches) Measured by: Patient reported s/sx and provider physical exam Time-frame to meet goal: 6-12 months On a scale of 1-10, what is the patient's overall confidence level with administering this medication? Not assessed Monitoring requirements for prescribed medication: CBC, CMP, Lipids, TB test On a scale of 1-10 the patient rates their quality of life: Not assessed Care Plan Reviewed and Approved by both Pharmacist and Patient: Yes Interventions (if applicable): No N/A Pharmacist follow-up needed: Yes Delivery Method: Delivery Patient understands no changes to current drug regimen were made at the appointment and [facility]summary located at top of note) for provider review and follow up. Saul Kearney RPH 04/26/23 2:43 PM documented in this encounter Plan of Treatment Upcoming Encounters Date Type Department Care Team (Late st Contact Info) Description 05/22/2024 4:45 PM EDT Office Visit Dermatology at [facility] [address] [place] [phone] Didier Centeno MD [address] [facility] [place] [address] documented as of this encounter Visit Diagnoses Diagnosis Alopecia areata documented in this encounter Care Teams Retail Team Member Relationship Specialty Start Date End Date None None PCP - General 04/09/21 documented as of this encounter
--- OUTSIDE RECORDS SUMMARY | 2024-04-12 00:31 | XMS_ITS | Encounter Summary ---
Author Organization [facility] Address [address] [facility] [place] [address] Care Team Providers Care Director Of Casework Services Name Role Phone None Primary Care Provider [facility] Encounter Details Date Type Department Care Team (Latest Contact Info) Description 07/06/2022 Travel Social History Tobacco Use Types Packs/Day [...] 4:45 PM EDT Office Visit Dermatology at [facility] [address] [place] [address] Didier Centeno MD [address] [facility] [place] [address] documented as of this encounter Visit Diagnoses Not on filedocumented in this encounter Care Teams Director Of Casework Services Relationship Specialty Start Date End Date None None PCP - General 04/09/21 documented as of this encounter
--- OUTSIDE RECORDS SUMMARY | 2024-04-12 00:31 | XMS_ITS | Encounter Summary ---
Author Organization [facility] Address [address] [facility] [place] [address] Care Team Providers Care Supervisor Fish Hatchery Name Role Phone None [facility] Encounter Details Date Type Department Care Team (Late st Contact Info) Description 07/06/2022 4:15 PM EDT Office Visit Dermatology [facility] [address] [place] [address] Didier Centeno MD [address] [facility] [place] [address] Alopecia areata Social History Tobacco Use Types Packs/Day Years Used Date Smoking Tobacco: Never Smokeless Tobacco: Never Sex and Gender Information Value Date Recorded Sex Assigned at Not on file Gender Identity Not on file Sexual Orientation Not on file documented as of this encounter Progress Notes * Didier Centeno MD - 07/06/2022 4:15 PM EDT Images from the original note were not included. DEPARTMENT OF DERMATOLOGY Medical Dermatology Clinic Provider: Didier Centeno MD FAAD at Dermatology [facility] Patient's preferred name Melissa? PAST MEDICAL HISTORY (if blank, patient denies history) Melanoma ??- Dysplastic nevi ??- SCC ??- BCC ??- AK []?cryotherapy []?efudex []?PDT []?Other ? Relevant Medications []?Immunosuppression []?Transplant []?Oncogenic medication []?Nicotinamide 500mg po bid Alopecia Areata ILK Other relevant history? FAMILY HISTORY (if blank, patient denies history) Melanoma ??- NMSC ??- Other relevant history ??- SOCIAL HISTORY ?? Last seen 05/25/2022. History of Present Illness: Melissa BARAJAS is 46 y.o. and here for the following: ??? History of alopecia areata on the scalp status post serial IL Kenalog injections, most mg/mL at last visit, with unknown effect. Patient tolerated treatment well. Antecedent History: History of patch??of spreading but asymptomatic hair loss on the left side of the scalp since Oct 2015. No known triggers. No history of autoimmune disorders. Never been biopsied.??Treated with ILK with variableresponse.?? Insurance has thus far denied XTRAC phototherapy, Opzelura topical, and baricitinib. Medications: Reviewed in eD-H Allergies: Reviewed in eD-H Skin Examination Standby: Janes Barr MA Well developed, well-nourished in no apparent distress, alert and oriented to time, person, place and situation. Focused examination of the skin of the scalp significant for the following: Exam Findings/Assessment/Plan Alopecia Areata 8x5 cm patch of nonscarring alopecia (with 60-70% new hair growth) on the occipital scalp ?? Today Apr 2022 Finally, good response to intralesional Kenalog. No evidence of atrophy after high potency Kenalog injection. Recommend repeat??intra lesional??Kenalog ?? Reviewed clinical impression and recommendation, as above. Discussed major risk of intralesional Kenalog including skin atrophy. ??Answered all questions. Patient elects repeat intralesional Kenalog ??? Occipital scalp??treated with Kenalog??40??mg/ml [Lot#??[id number]??/ Exp??07/2023], total??0.6??ml after verbally discussing the disease and treatment options, Kenalog IL method, expected results/course and potential adverse effects, including pain, dyspigmentation, atrophy, and recurrence. Marissa ent verbally agreed. Area prepped with alcohol. Blanching noted. Hemostasis achieved with drysol, as needed. Post-procedure pain 0/10. Patient tolerated well with no complications. Wound care instructions provided. Follow-up: 4-6 weeks for alopecia/ ILK follow up. Return sooner as needed for suspicious lesion, new or worsening dermatitis. [] Recall placed [] Forwarded to parking station attendant [x] Patient scheduled before exiting Scribe attestation: Janes Barr MA has performed the documentation for this encounter in the presence of and acting as a scribe for MD LAWSON Regalado. I performed the above scribed service and agree with the accuracy of the documentation in this encounter. Reviewed and signed by: MD LAWSON Regalado Dermatology [facility] documented in this encounter Plan of Treatment Upcoming Encounters Date Type Department Care Team (Late st Contact Info) Description 05/22/2024 4:45 PM EDT Office Visit Dermatology at [facility] [address] [place] [address] Didier Centeno MD [address] [facility] [place] [address] documented as of this encounter Visit Diagnoses Diagnosis Alopecia areata documented in this encounter Administered Medications Inactive Administered Medications - up to 3 most recent administrations Medication Order MAR Action Action Date Dose Rate Site triamcinolone acetonide (Kenalog) (10 mg/mL) injection 40 mg 40 mg, Intra-Lesional, ONCE, 1 dose, On Mon07/06/22 at 1745, Routine Given 07/07/2022 7:48 AM EDT 40 mg documented in this encounter Care Teams Supervisor Fish Hatchery Relationship Specialty Start Date End Date None None PCP - General 04/09/21 documented as of this encounter
--- OUTSIDE RECORDS SUMMARY | 2024-04-12 00:31 | XMS_ITS | Encounter Summary ---
Author Organization [facility] [place] [address] Care Team Providers Care Shoe Lining Fitter Name Role Phone None Primary Care Provider Unavailabl e Encounter Details Date Type Department Care Team (Late st Contact Info) Description 04/26/2023 2:00 PM EST Office Visit Dermatology [facility] [address] [place] [address] Didier Centeno MD [address] [facility] [place] [address] Alopecia areata Social History Tobacco Use Types Packs/Day Years Used Date Smoking Tobacco: Never Smokeless Tobacco: Never Sex and Gender Information Value Date Recorded Sex Assigned at Not on file Gender Identity Not on file Sexual Orientation Not on file documented as of this encounter Progress Notes * Didier Centeno MD - 04/26/2023 2:00 PM EST Images from the original note were not included. DEPARTMENT OF DERMATOLOGY Medical Dermatology Clinic Provider: Didier Centeno MD FAAD at Dermatology [facility] Patient's preferred name Melissa PAST MEDICAL HISTORY [...] Other relevant history SOCIAL HISTORY Last seen 03/01/2023. History of Present Illness: Melissa J Karl is 47 y.o. and here for the [...] Allergies: Reviewed in eD-H Skin Examination Standby: Yung Perry RN Well developed, well-nourished in no apparent distress, alert and oriented to time, person, place and situation. Focused examination of the skin of the scalp significant for the following: Exam Findings/Assessment/Plan Alopecia Areata 3x2cm patch of non scarring alopecia with slight divot on the midline occipital scalp; 3cm patch ofnonscarring alopecia with central terminal hairs on the right occipital scalp Partial improvement and new areas and some areas did not respond. Slight atrophy in one treated area. Recommend ILK injections today. If no improvement, recommend baricitinib due to refractory treatment and increasing risks of steroid atrophy. Reviewed clinical impression and recommendation, as above. Discussed major risk of intralesional Kenalog including skin atrophy. Answered all questions. Patient elects repeat intralesional Kenalog. Procedure Intralesional Kenalog injection ? Reviewed off label use and reviewed risks including irritation, swelling, pain, incomplete resolution, infection, and scarring. Verbal consent obtained. Skin area cleaned with alcohol swab. Kenalog injected today ? [facility]: [id number] LOT: [id number] EXP: 11/2023 0.7mL of 40mg/mL (40mg) Kenalog were injected into the following sites: Occipital scalp Wound care: soapy gentle wash daily Re-evaluate and possible re-treatment in 6-8 weeks If no improvement, recommend baricitinib Met with Specialty Pharmacists today to discuss Follow-up: 6-8 week ILK follow up. Return sooner as needed for suspicious lesion, new or worsening dermatitis. [] Recall placed [] Forwarded to outside medical sales representative [x] Patient scheduled before exiting Scribe attestation: Yung Perry RN has performed the documentation for this encounter in the presence of and acting as a scribe for DidierMD LAWSON Gutierrez. I performed the above scribed service and agree with the accuracy of the documentation in this encounter. Reviewed and signed by: MD LAWSON Regalado Dermatology [facility] documented in this encounter Plan of Treatment Upcoming Encounters Date Type Department Care Team (Late st Contact Info) Description 05/22/2024 4:45 PM EDT Office Visit Dermatology at [facility] [address] [place] [address] Didier Centeno MD [address] [facility] [place] [address] documented as of this encounter Visit Diagnoses Diagnosis Alopecia areata documented in this encounter Administered Medications Inactive Administered Medications - up to 3 most recent administrations Medication Order MAR Action Action Date Dose Rate Site triamcinolone acetonide (Kenalog-40) (40 mg/mL) injection 40 mg 40 mg, Intradermal, ONCE, 1 dose, On Mon04/26/23 at 1445, Routine Given 04/26/2023 2:28 PM EST 40 mg 20-Other (document in comment section) documented in this encounter Care Teams Shoe Lining Fitter Relationship Specialty Start Date End Date None None PCP - General 04/09/21 documented as of this encounter
--- OUTSIDE RECORDS SUMMARY | 2024-04-12 00:31 | XMS_ITS | Clinical Summary ---
Author Organization [facility] Address [address] [place] [address] Care Team Providers Care Emergency Manager Name Role Phone Vladimir Moran RPA Primary Care Provider [phone] Leticia Franklin MD Unavailable Unavailable Encounters Date Type Department Care Team Description 03/27/2024 Lab Requisition [facility] Pathology & Laboratory Medicine - [facility] [address] [place] [address] Vladimir Moran, KAREN Encounter for other general examination from Last 3 Months Social History Tobacco Use Types Packs/Day Years Used Date Smoking Tobacco: Never Assessed Comments Unknown Sex and Gender Information Value Date Recorded Sex Assigned at Not on file Legal Sex Female 8:00 EDT Gender Identity Not on file Sexual Orientation Not on file Plan of Treatment Health Maintenance Due Date Last Done Comments Hepatitis C Screen 1975 Hepatitis B Vaccine (1 of 3 - 19+ 3-dose series) 10/24 COVID-19 Vaccine ( season) 2023 Procedures Procedure Name Priority Date/Time Associated Diagnosis Comments PAP TEST Today 03/26/2024 8:50 EST Encounter for other general examination from Last 3 Months Results * PAP TEST (03/26/2024 8:50 EST) Specimens A. Cervix and/or Endocervix , ThinPrep Imaging System with Manual Evaluation 04/08/2024 14:11 [facility] Specimen Adequacy Unsatisfactory for evaluation-Insuf ficient number of squamous epithelial cells. Specimen processed and examined but preparation compromised by lubricant or other vaginal contaminant. 04/08/2024 14:11 [facility] General Categorization Unsatisfactory 04/08/2024 14:11 [facility] Educational Comments Unsatisfactory - Specimen processed and examined, but unsatisfactory for evaluation of epithelial abnormality. Recommend repeat age-based screening after 2-4 months per ASCCP Guidelines which may be found at www.asccp.org. HPV testing will not be performed due to the potential for false negative results. 04/08/2024 14:11 [facility] Attestation . 04/08/2024 14:11 [facility] at 1410 Clinical History See below 04/08/19 14:11 [facility] Performing Lab [facility] 04/08/2024 14:11 [facility] Scanned Images 04/08/2024 14:11 [facility] Pap Test CERVIX UTERI STRUCTURE / Unknown 03/26/2024 8:50 EST 03/27/2024 11:09 EST Vladimir Moran [facility] PATHOLOGY ORDERABLES Rosa garcia Result [facility] [address] [place] [address] from Last 3 Months Insurance MEDICAID [place] Care Teams Emergency Manager Relationship Specialty Start Date End Date Vladimir Moran RPA [address] [place] [address] PCP - General 12/28/20 Leticia Franklin MD [address] [address] 12/28/20
--- OUTSIDE RECORDS SUMMARY | 2024-04-12 00:31 | XMS_ITS | Encounter Summary ---
Author Organization [facility] Address [address] [facility] [place] [address] Care Team Providers Care Hand Dry Cleaner Name Role Phone None Primary [facility] Encounter Details Date Type Department Care Team (Latest Contact Info) Description 10/26/2022 Travel Social History Tobacco Use Types Packs/Day [...] 4:45 PM EDT Office Visit Dermatology at [facility] [address] [place] [address] Didier Centeno MD [address] [facility] [place] [address] documented as of this encounter Visit Diagnoses Not on filedocumented in this encounter Care Teams Hand Dry Cleaner Relationship Specialty Start Date End Date None None PCP - General 04/09/21 documented as of this encounter
--- OUTSIDE RECORDS SUMMARY | 2024-04-12 00:31 | XMS_ITS | Encounter Summary ---
Author Organization [facility] [address] [facility] [place] [address] Care Team Providers Care Metal Checker Name Role Phone None Primary Care Provider [facility] Encounter Details Date Type Department Care Team (Latest Contact Info) Description 04/26/2023 Travel Social History Tobacco Use Types Packs/Day [...] 4:45 PM EDT Office Visit Dermatology at [facility] [address] [place] [address] Didier Centeno MD [address] [facility] [place] [address] documented as of this encounter Visit Diagnoses Not on filedocumented in this encounter Care Teams Metal Checker Relationship Specialty Start Date End Date None None PCP - General 04/09/21 documented as of this encounter
--- OUTSIDE RECORDS SUMMARY | 2024-04-12 00:31 | XMS_ITS | Encounter Summary ---
Author Organization [facility] Address [address] [place] [address] Care Team Providers Care Senior Telecommunications Specialist Name Role Phone Unknown, Provider Primary Care Provider Unava ilable Encounter Details Date Type Department Care Team (Late st Contact Info) Description 08/11/2014 Results Only [facility] [phone] Aviva Franklin MD [address] [place] [address] Social History Tobacco Use Types Packs/Day Years [...] Diagnosis Comments PAP TEST- RESULT ONLY Routine 08/11/2014 0:00 EDT documented in this encounter Results * PAP TEST- RESULT ONLY (08/11/2014 0:00 EDT) Pathology Report: CYTOPATHOLOGY REPORT Reports generated via electronic interface contain original data; however they are lacking the format of the original report. Caution should be taken when reading/interpreti ng unformatted reports. Name: ? MELISSA GOLDBERG ? Accession #: ? [id number] ? : ? 1975 (Age: 38) ??F ?Collect Date: ? 08/11/2014 ? Location: ? [facility] ? Receive Date: ? 08/12/2014 ? Provider: AVIVA FRANKLIN MD Copy to: ? Final Report SPECIMEN ADEQUACY ? Satisfactory for Evaluation - transformation zone component present GENERAL CATEGORIZATION ? Negative for Intraepithelial Lesion or Malignancy ?? Last Menstrual Period: 08/02/14 Other: Additional clinical information: negative pap history, last pap 10 years ago Specimen/Source: ??Pap Test, Cervix/Endocervix, ThinPrep Imaging System with manual evaluation Document reviewed and electronically signed by: ? Karen Stahl, VIVIAN(ASCP) ? Report ??Date: 08/19/2014 08:45 HPV with Pap Test ? Date Ordered: ? 08/19/2014 ? Status: ?? Signed Out ?Date Complete: ? 08/21/2014 ? By: ??System Interface ? Date Reported: ? 08/21/2014 ? Interpretation RESULT: Negative for HPV. No E6 or E7 mRNA is detected from HPV types 16,18,31,33,35, 39,45,51,52,56,58, 59,66, and 68 by adult high school instructor mediated amplification. Comments Document reviewed and electronically signed by: ? System Interface ? Report date: 08/21/2014 By the signature above, the attending physician certifies that he/she has personally conducted a gross and/or microscopic examination of the described specimens and rendered or confirmed the above diagnosis. End of Report [facility] 08/11/2014 08/12/2014 us Aviva Franklin MD PATHOLOGY ORDERABLES Final Resu lt [facility] [address] [place] [address] documented in this encounter Visit Diagnoses Not on filedocumented in this encounter Care Teams Senior Telecommunications Specialist Relationship Specialty Start Date End Date Unknown, Provider, PCP - General 08/12/14 01/05/15 documented as of this encounter
--- OUTSIDE RECORDS SUMMARY | 2024-04-12 00:31 | XMS_ITS | Encounter Summary ---
[facility] [place] [address] Care Team Providers Care Patient Registration Supervisor Name Role Phone None Primary Care Provider Unavailabl e Reason for Visit * Reason Comments Prior Authorization Olumiant 2mg Tabs Encounter Details Date Type Department Care Team (Late st Contact Info) Description 06/16/2022 Specialty [place] [phone] Reginald Holder, [facility] Social History Tobacco Use Types Packs/Day Years Used Date Smoking Tobacco: Never Smokeless Tobacco: Never Sex and Gender Information Value Date Recorded Sex Assigned at Not on file Gender Identity Not on file Sexual Orientation Not on file documented as of this encounter Progress Notes * Reginald Holder - 06/16/2022 3:12 PM EDT [facility], Medication Prior Authorization Submission Patient: Melissa BARAJAS Patient : 1975 Patient Address: [address] [place] [id number] (home) Medication Name: OLUMIANT 2 MG TABLET Medication ID: Subscriber Insurance: [place] Medicaid Subscriber Insurance Comment: Fax: Physician: VIKASH CENTENO Physician Comment: Sent Via: Fax Bhatt: Maya/Peng/ISABELL#: Medication Strength Frequency Requested: Olumiant 2mg Tabs. Take one tablet (2mg) by mouth once daily Qty/Day Supply: New Start: New to Therapy Diagnosis & ICD-10 Code: Alopecia Areata L63.9 Patient Notified: Yes Submission Notes: None Reginald Holder 06/16/22 3:14 PM * Regniald Holder - 06/16/2022 3:12 PM EDT [facility], Prior Authorization Denial Medication Name: OLUMIANT 2 MG TABLET Medication ID: Case/Reference # : [id number] Denial Summary: Drugs used for cosmetic purposes or hair growth are excluded from coverage under the [place] Medicaid Pharmacy Program Patient Notified of Denial: No Additional Information from insurance carrier. Please see below: None For any questions relating to this denial please reach out directly to your section's specialty pharmacist, or the specialty pharmacy team at [facility] Reginald Holder 06/17/22 7:40 AM documented in this encounter Plan of Treatment Upcoming Encounters Date Type Department Care Team (Late st Contact Info) Description 05/22/2024 4:45 PM EDT Office Visit Dermatology at [facility] [address] [place] [address] Vikash Centeno MD [address] [facility] [place] [address] documented as of this encounter Visit Diagnoses Not on filedocumented in this encounter Care Teams Patient Registration Supervisor Relationship Specialty Start Date End Date None None PCP - General 04/09/21 documented as of this encounter
--- OUTSIDE RECORDS SUMMARY | 2024-04-12 00:31 | XMS_ITS | Encounter Summary ---
Author Organization [facility] Address [address] [place] [address] Care Team Providers Care Railroad Track Inspector Name Role Phone Aviva Franklin MD Primary Care Provider Adana ble Encounter Details Date Type Department Care Team ([facility] st Contact Info) Description 04/08/2015 Results Only [facility] [phone] Aviva Franklin MD [address] [place] [address] Social History Tobacco Use Types Packs/Day Years [...] Priority Date/Time Associated Diagnosis Comments SURGICAL PATHOLOGY Routine 04/08/2015 22 :11 EST documented in this encounter Results * SURGICAL PATHOLOGY (04/08/2015 22:11 EST) Pathology Report: SURGICAL PATHOLOGY REPORT Reports generated via electronic interface contain original data; however they are lacking the format of the original report. Caution should be taken when reading/interpret ing unformatted reports. Name: ? MELISSA GOLDBERG ? Accession #: ? [id number] ? : ? 1975 (Age: 39) ??F ? Collect Date: ? 04/08/2015 ? Location: ? [facility] ? Receive Date: ? 04/08/2015 ? Provider: AVIVA FRANKLIN MD Copy to: ? Final Pathologic Diagnosis: A. UTERUS, MORCELLATED SUPRACERVICAL HYSTERECTOMY: - ??Endometrium: Proliferative endometrium. - ??Myometrium: Leiomyomata (1.3 cm in greatest dimension). - ??Serosa: No specific pathologic features. B. FALLOPIAN TUBE, LEFT, DISTAL, PARTIAL SALPINGECTOMY: - ??No specific pathologic features. C. FALLOPIAN TUBE, RIGHT, DISTAL, PARTIAL SALPINGECTOMY: - ??No specific pathologic features. Document reviewed and electronically signed by: OMAIRA COLLINS MD Report ??Date: 04/13/2015 11:24 By the signature above, the attending physician certifies that he/she has personally conducted a gross and/or microscopic examination of the described specimens and rendered or confirmed the above diagnosis. Specimen(s) Received: A. ??Uterus B. ??Left fallopian tube, distal C. ??Right fallopian tube, distal Clinical History: Menorrhagia Gross Description: A. ? Received in formalin labelled with proper patient identification (initials G, A) and uterus is a uterus in multiple irregular pieces, forming an aggregate mass of 9.5 x 8.0 x 3.3 cm and weighing 65 g. Generous page endometrium is identified, averaging 0.5 cm in thickness. Two fibroids are identified, 0.3 cm and 1.3 cm, both of which have dense whorled white cut surfaces. Rn Icu sections are submitted as follows: BLOCK DEE A1-A3- ??endomyometrium A4- ??fibroids x2 A5- ??myometrium with serosa B. ?Received in formalin labelled with proper patient identification (initials G, A) and left fallopian tube, distal is a slightly fragmented fimbriated segment of fallopian tube measuring 2.8 cm in length and 0.7 cm in diameter. The serosa is unremarkable. Rn Icu sections are submitted in B1. C. ?Received in formalin labelled with proper patient identification (initials G, A) and right fallopian tube, distal is a fimbriated segment of fallopian tube measuring 4.5 cm in length and 0.7 cm in diameter. The serosa is slightly ??congested. Rn Icu sections are submitted in C1. Yanet WHYTE 04/09/2015 11:06 AM End of Report [facility] 04/08/2015 22:1 1 EST 04/08/2015 22:11 EST us Aviva Franklin MD PATHOLOGY ORDERABLES Final Resu lt [facility] [address] [place] [address] documented in this encounter Visit Diagnoses Not on filedocumented in this encounter Care Teams Railroad Track Inspector Relationship Specialty Start Date End Date Aviva Franklin MD PCP - General 01/06/15 12/27/20 documented as of this encounter
--- OUTSIDE RECORDS SUMMARY | 2024-04-12 00:31 | XMS_ITS | Encounter Summary ---
Author Organization [facility] Address One [facility] [place] [address] Care Team Providers Care Feather Edger Name Role Phone None Primary Care Provider Unavailabl e Encounter Details Date Type Department Care Team (Late st Contact Info) Description 05/26/2022 Refill Dermatology at [facility] [address] [place] [address] Didier Centneo MD [address] [place] [address] Social History Tobacco Use Types Packs/Day Years [...] 4:45 PM EDT Office Visit Dermatology at [facility] [address] [place] [address] Didier Centeno MD [address] [place] [address] documented as of this encounter Visit Diagnoses Not on filedocumented in this encounter Care Teams Feather Edger Relationship Specialty Start Date End Date None None PCP - General 04/09/21 documented as of this encounter
--- OUTSIDE RECORDS SUMMARY | 2024-04-12 00:31 | XMS_ITS | Encounter Summary ---
Author Organization [facility] Address One [facility] [place] [address] Care Team Providers Care Credit Collections Rep Name Role Phone None Primary Care Provider Unavailabl e Encounter Details Date Type Department Care Team (Late st Contact Info) Description 04/08/2024 Telephone Dermatology at [facility] [address] [place] [address] Didier Centeno MD [address] [facility] [address] Social History Tobacco Use Types Packs/Day Years [...] [facility] [address] [place] [address] Didier Centeno MD [address] [place] [address] documented as of this encounter Visit Diagnoses Not on filedocumented in this encounter Care Teams Credit Collections Rep Relationship Specialty Start Date End Date None None PCP - General 04/09/21 documented as of this encounter
--- OUTSIDE RECORDS SUMMARY | 2024-04-12 00:31 | XMS_ITS | Encounter Summary ---
Author Organization [facility] Address [address] [place] [address] Care Team Providers Care Vascular Sonographer Name Role Phone Unknown, Provider Primary Care Provider Unava ilable Encounter Details Date Type Department Care Team ([facility] st Contact Info) Description 01/02/2015 Results Only [facility] [phone] Aviva Franklin MD [address] [place] [address] Social History Tobacco Use Types Packs/Day Years [...] Date/Time Associated Diagnosis Comments SURGICAL PATHOLOGY Routine 01/02/2015 18 :59 EST documented in this encounter Results * SURGICAL PATHOLOGY (01/02/2015 18:59 EST) Pathology Report: SURGICAL PATHOLOGY REPORT Reports generated via electronic interface contain original data; however they are lacking the format of the original report. Caution should be taken when reading/interpret ing unformatted reports. Name: ? MELISSA GOLDBERG ? Accession #: ? [id number] ? : ? 1975 (Age: 39) ??F ? Collect Date: ? 01/02/2015 ? Location: ? [facility] ? Receive Date: ? 01/02/2015 ? Provider: AVIVA FRANKLIN MD Copy to: ? Final Pathologic Diagnosis: ENDOMETRIUM, BIOPSY: - ??Mid to late secretory endometrium. Document reviewed and electronically signed by: OMAIRA COLLINS MD Report ??Date: 01/06/2015 13:54 By the signature above, the attending physician certifies that he/she has personally conducted a gross and/or microscopic examination of the described specimens and rendered or confirmed the above diagnosis. Specimen(s) Received: Endometrial biopsy Clinical History: Menorrhagia [...] Nova 01/05/2015 8:53 AM End of Report [facility] 01/02/2015 18:5 9 EST 01/02/2015 18:59 EST us Aviva Franklin MD PATHOLOGY ORDERABLES Final Resu lt [facility] [address] [place] [address] documented in this encounter Visit Diagnoses Not on filedocumented in this encounter Care Teams Vascular Sonographer Relationship Specialty Start Date End Date Unknown, Provider, PCP - General 08/12/14 01/05/15 documented as of this encounter
--- OUTSIDE RECORDS SUMMARY | 2024-04-12 00:31 | XMS_ITS | Encounter Summary ---
Author Organization [facility] [place] [address] Care Team Providers Care Relay Assembler Name Role Phone None Primary Care Provider Unavailabl e Reason for Visit * Reason Comments Specialty Pharmacy Review Encounter Details Date Type Department Care Team (Late st Contact Info) Description 04/26/2023 Specialty [place] [address] Bc Holman, [facility] Social History Tobacco Use Types Packs/Day Years Used Date Smoking Tobacco: Never Smokeless Tobacco: Never Sex and Gender Information Value Date Recorded Sex Assigned at Not on file Gender Identity Not on file Sexual Orientation Not on file documented as of this encounter Progress Notes * Bc Holman - 04/26/2023 2:28 PM EST The [facility] has completed a benefits investigation for Melissa Ellis Karl to review their eligibility to fill at [facility]. Per patient's medication list they are prescribed OLUMIANT 2 MG TABLET and the medication is not able to be filled at the [facility]. The prior authorization has yet to be submitted while we await active insurance information from the patient. documented in this encounter Plan of Treatment Upcoming Encounters Date Type Department Care Team (Late st Contact Info) Description 05/22/2024 4:45 PM EDT Office Visit Dermatology at [facility] [address] [place] [address] Didier Centeno MD [address] [place] [address] documented as of this encounter Visit Diagnoses Not on filedocumented in this encounter Care Teams Relay Assembler Relationship Specialty Start Date End Date None None PCP - General 04/09/21 documented as of this encounter
--- OUTSIDE RECORDS SUMMARY | 2024-04-12 00:31 | XMS_ITS | Encounter Summary ---
Author Organization [facility] Address [facility] [place] [address] Care Team Providers Care Occupational Therapy Asst Name Role Phone None Primary Care Provider Unavailabl e Encounter Details Date Type Department Care Team (Late st Contact Info) Description 08/25/2022 Telephone Dermatology at [facility] [address] [place] [address] Didier Centeno MD [address] [facility] [address] Social History Tobacco Use Types Packs/Day Years Used Date Smoking Tobacco: Never Smokeless Tobacco: Never Sex and Gender Information Value Date Recorded Sex Assigned at Not on file Gender Identity Not on file Sexual Orientation Not on file documented as of this encounter Miscellaneous Notes * Telephone Encounter - Juana Winters - 08/25/2022 3:16 PM EDT Left message for patient to let her know this 09/[address] Centeno needs to be rescheduled. Provided my direct # to call. Also sent letter and my message. documented in this encounter Plan of Treatment Upcoming Encounters Date Type Department Care Team (Late st Contact Info) Description 05/22/2024 4:45 PM EDT Office Visit Dermatology at [facility] [address] [place] [address] Didier Centeno MD [address] [facility] [place] [address] documented as of this encounter Visit Diagnoses Not on filedocumented in this encounter Care Teams Occupational Therapy Asst Relationship Specialty Start Date End Date None None PCP - General 04/09/21 documented as of this encounter
--- OUTSIDE RECORDS SUMMARY | 2024-04-12 00:31 | XMS_ITS | Encounter Summary ---
Author Organization [facility] Address [address] [place] [address] Care Team Providers Care Propellant Assembler Name Role Phone Unknown, Provider Primary Care Provider Unava ilable Encounter Details Date Type Department Care Team (Latest Contact Info) Description 01/02/2015 16:15 EST - 01/02/2015 23:59 [facility] Hospital Encounter [address] [address] Unknown, Provider, Discharge Disposition: Home or Self Care Social [...] Code Departure Means Destination Home or Self [facility] documented in this encounter Plan of Treatment Not on file documented as of this encounter Visit Diagnoses Not on filedocumented in this encounter Care Teams Propellant Assembler Relationship Specialty Start Date End Date Unknown, Provider, PCP - General 08/12/14 01/05/15 documented as of this encounter
--- OUTSIDE RECORDS SUMMARY | 2024-04-12 00:31 | XMS_ITS | Encounter Summary ---
Author Organization [facility] [place] [address] Care Team Providers Care Feller Buncher Operator Name Role Phone None Primary Care Provider Unavailabl e Encounter Details Date Type Department Care Team (Late st Contact Info) Description 10/26/2022 10:00 AM EDT Office Visit Dermatology [facility] [address] [place] [address] Didier Centeno MD [address] [facility] [place] [address] Alopecia areata Social History Tobacco Use Types Packs/Day Years Used Date Smoking Tobacco: Never Smokeless Tobacco: Never Sex and Gender Information Value Date Recorded Sex Assigned at Not on file Gender Identity Not on file Sexual Orientation Not on file documented as of this encounter Progress Notes * Didier Centeno MD - 10/26/2022 10:00 AM EDT Images from the original note were not included. DEPARTMENT OF DERMATOLOGY Medical Dermatology Clinic Provider: Didier Centeno MD FAAD at Dermatology [facility] Patient's preferred name Melissa PAST MEDICAL [...] Other relevant history SOCIAL HISTORY Last seen 07/06/2022. History of Present Illness: Melissa BARAJAS is 46 y.o. and here for the following: History of alopecia areata on the scalp status post serial IL Kenalog injections, most recently 40 mg/mL at last visit, with unknown effect. Patient tolerated treatment well. Has noticed major hair growth. 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 Antecedent History: History of patch of spreading but asymptomatic hair loss on the left side of the scalp since Oct 2015. No known triggers. No history of autoimmune disorders. Never been biopsied. Treated with ILK with variableresponse. Insurance has thus far denied XTRAC phototherapy, Opzelura to pical, and baricitinib. Medications: Reviewed in eD-H Allergies: Reviewed in eD-H Skin Examination Standby: Janes Barr MA Well developed, well-nourished in no apparent distress, alert and oriented to time, person, place and situation. Focused examination of the skin of the scalp significant for the following: Exam Findings/Assessment/Plan Alopecia Areata 6 mm hypodense macule but with terminal hairs on the midline lower occipital scalp Finally, good response to intralesional Kenalog. No evidence of atrophy after high potency Kenalog injection. Recommend returning to clinic with any worsening alopecia Reviewed clinical impression and recommendation, as above. Discussed major risk of intralesional Kenalog including skin atrophy. Answered all questions. Patient elects repeat intralesional Kenalog Due to significant hair growth, discussed no need to repeat ILK injections today. Recommend returning to clinic with any concerns or worsening alopecia Follow-up: PRN for alopecia/ ILK follow up. Return sooner as needed for suspicious lesion, new or worsening dermatitis. [] Recall placed [] Forwarded to head porter [] Patient scheduled before exiting Scribe attestation: Janes Barr MA has performed the documentation for this encounter in the presence of and acting as a scribe for MD LAWSON Regalado. I performed the above scribed service and agree with the accuracy of the documentation in this encounter. Reviewed and signed by: Didier Centeno MD FAAD Dermatology [facility] documented in this encounter Plan of Treatment Upcoming Encounters Date Type Department Care Team (Late st Contact Info) Description 05/22/2024 4:45 PM EDT Office Visit Dermatology at [facility] [address] [place] [address] Didier Centeno MD [address] [facility] [address] documented as of this encounter Visit Diagnoses Diagnosis Alopecia areata documented in this encounter Care Teams Feller Buncher Operator Relationship Specialty Start Date End Date None None PCP - General 04/09/21 documented as of this encounter
--- OUTSIDE RECORDS SUMMARY | 2024-04-12 00:32 | XMS_ITS | Encounter Summary ---
Author Organization [facility] [place] [address] Care Team Providers Care Sas Statistical Programmer Name Role Phone Laquita Hernandez MD Primary Care Provider [phone] Reason for Visit * Reason Comments Procedure Encounter Details Date Type Department Care Team (Late st Contact Info) Description 08/29/2019 4:40 PM EDT Office Visit Dermatology [facility] [address] [place] [address] Didier Centeno MD [address] [facility] [place] [address] Alopecia areata (Primary Dx) Social History Tobacco Use Types Packs/Day Years Used Date Smoking Tobacco: Never Smokeless Tobacco: Never Sex and Gender Information Value Date Recorded Sex Assigned at Not on file Gender Identity Not on file Sexual Orientation Not on file documented as of this encounter Progress Notes * Didier Centeno MD - 08/29/2019 4:40 PM EDT Images from the original note were not included. Dermatology Dermatology at [facility] FOLLOW-UP Chief Complaint: Alopecia areata f/u [...] Surgical Family, and Social Histories Since Last Visit12/17/2018: No significant and pertinent interval changes. Skin [...] Examination of the head - including the scalp, face, ears, nose, lips - neck, chest, abdomen, [...] 3 treated with Kenalog 40 mg/ml [Lot# [id number] / Exp APR 2019, total 0.7 ml [...] Didier Centeno MD FAAD Section of Dermatology [facility] documented in this encounter Plan of Treatment Upcoming Encounters Date Type Department Care Team (Late st Contact Info) Description 05/22/2024 4:45 PM EDT Office Visit Dermatology at [facility] [address] [place] [address] Didier Centeno MD [address] [facility] [place] [address] documented as of this encounter Visit Diagnoses Diagnosis Alopecia areata- Primary documented in this encounter Administered Medications Inactive Administered Medications - up to 3 most recent administrations Medication Order MAR Action Action Date Dose Rate Site triamcinolone acetonide (KENALOG-40) injection 40 mg 40 mg, Intra-Lesional, ONCE, 1 dose, On Chary 08/29/19 at 1330, Routine Given 08/29/2019 1:48 PM EDT 40 mg documented in this encounter Care Teams Sas Statistical Programmer Relationship Specialty Start Date End Date Laquita Hernandez MD PCP - General Pediatrics 12/06/16 07/28/20 documented as of this encounter
--- OUTSIDE RECORDS SUMMARY | 2024-04-12 00:32 | XMS_ITS | Encounter Summary ---
Author Organization [facility] Address One [facility] [place] [address] Care Team Providers Care Formula Mixer Name Role Phone Davidson Lopez MD Primary Care Provider [phone] Encounter Details Date Type Department Care Team (Late st Contact Info) Description 10/10/2016 Telephone Dermatology at [facility] [address] [place] [address] None None Social History Tobacco Use Types Packs/Day Years Used Date Smoking Tobacco: Never Assessed Sex and Gender Information Value Date Recorded Sex Assigned at Not on file Gender Identity Not on file Sexual Orientation Not on file documented as of this encounter Miscellaneous Notes * Telephone Encounter - Joanne Wray - 10/10/2016 12:44 PM EDT I called melissa last week 10/03 and forgot to note it. Home line was unavailable both times. I calledthe mobile number it was picked up than dropped. I will be sending out a letter. documented in this encounter Plan of Treatment Upcoming Encounters Date Type Department Care Team (Late st Contact Info) Description 05/22/2024 4:45 PM EDT Office Visit Dermatology at [facility] [address] [place] [address] Didier Centeno MD [address] [facility] [place] [address] documented as of this encounter Visit Diagnoses Not on filedocumented in this encounter Care Teams Formula Mixer Relationship Specialty Start Date End Date Davidson Lopez MD [address] [place] [address] PCP - General 01/19/10 12/05/16 documented as of this encounter
--- OUTSIDE RECORDS SUMMARY | 2024-04-12 00:32 | XMS_ITS | Encounter Summary ---
Author Organization [facility] [place] [address] Care Team Providers Care Hopper Filler Name Role Phone Laquita Hernandez MD Primary Care Provider [phone] Encounter Details Date Type Department Care Team (Late st Contact Info) Description 09/19/2018 3:45 PM EDT Office Visit Dermatology at [facility] [address] [place] [address] Didier Centeno MD [address] [facility] [address] Alopecia areata (Primary Dx) Social History Tobacco Use Types Packs/Day Years Used Date Smoking Tobacco: Never Smokeless Tobacco: Never Sex and Gender Information Value Date Recorded Sex Assigned at Not on file Gender Identity Not on file Sexual Orientation Not on file documented as of this encounter Progress Notes * Didier Centeno MD - 09/19/2018 3:45 PM EDT Images from the original note were not included. Dermatology [place], [place] FOLLOW-UP Chief Complaint: Alopecia??areata f/u - not improved History of Present Illness Melissa J ULISES is a 42 y.o. female History of alopecia areata on the midline occipital scalp, s/p ILK 20 mg/mL without notable improvement since last visit . Antecedent History: History of patch of spreading [...] Surgical Family, and Social Histories Since Last Visit08/01/2018: No significant and pertinent interval changes. Skin [...] upon specific queries. Examination Standby: Mk Worthy Pain 0/10. Mood is appropriate. Well developed, well-nourished in no apparent distress, alert and oriented to time, person, place and situation. Focused skin examination of the midline occipital scalp, significant for the following: ?? 3 x 3 cm patch of nonscarring alopecia with only a few villous hairs on the periphery, but no central regrowth on the midline occipital scalp Assessment and Plan Alopecia areata Joint decision to re-treat with ILK at increased dose. ?? Total 1 treated with Kenalog 40 mg/ml [Lot# [id number] / Exp MAY 2019], total 1.0 ml after verballydiscussing the disease and treatment options, Kenalog IL method, expected results/course and potential adverse effects, including pain, dyspigmentation, atrophy, and recurrence. Patient verbally agreed. Area prepped with alcohol. Blanching noted. Hemostasis achieved with drysol, as needed. Post-procedure pain 0/10. Patient tolerated well with no complications. Wound care instructions provided. Follow-up: in 8 weeks for alopecia follow-up or sooner as needed for worsening alopecia or new dermatitis. Note initiated by KODY Carrasco has performed the documentation for this encounter in the presence of and acting as a scribe for Dr. Centeno. I performed the above scribed service and agree with the accuracy of the documentation in this encounter. Didier Centeno MD FAAD Section of Dermatology [facility] documented in this encounter Plan of Treatment Upcoming Encounters Date Type Department Care Team (Late st Contact Info) Description 05/22/2024 4:45 PM EDT Office Visit Dermatology at [facility] [address] [place] [address] Didier Centeno MD [address] [facility] [place] [address] documented as of this encounter Visit Diagnoses Diagnosis Alopecia areata- Primary documented in this encounter Administered Medications Inactive Administered Medications - up to 3 most recent administrations Medication Order MAR Action Action Date Dose Rate Site triamcinolone acetonide (KENALOG-40) injection 40 mg 40 mg, Intra-Lesional, ONCE, 1 dose, On Mon09/19/18 at 1715, Routine Given 09/19/2018 4:56 PM EDT 40 mg documented in this encounter Care Teams Hopper Filler Relationship Specialty Start Date End Date Laquita Hernandez MD PCP - General Pediatrics 12/06/16 07/28/20 documented as of this encounter
--- OUTSIDE RECORDS SUMMARY | 2024-04-12 00:32 | XMS_ITS | Encounter Summary ---
Author Organization [facility] Address One [facility] [place] [address] Care Team Providers Care Senior Water/Wastewater Engineer Name Role Phone Unavailable Primary Care Provider Unavailabl e Encounter Details Date Type Department Care Team (Latest Contact Info) Description 04/08/2021 Travel Social History Tobacco Use [...] 4:45 PM EDT Office Visit Dermatology at [facility] [address] [place] [address] Didier Centeno MD [address] [facility] [place] [place] [address] documented as of this encounter Visit Diagnoses Not on filedocumented in this encounter
--- OUTSIDE RECORDS SUMMARY | 2024-04-12 00:32 | XMS_ITS | Encounter Summary ---
Author Organization [facility] [place] [address] Care Team Providers Care Shear Operator Helper Name Role Phone None Primary Care Provider Unavailabl e Reason for Visit * Reason Comments Specialty Pharmacy Review Encounter Details Date Type Department Care Team (Late st Contact Info) Description 05/25/2022 Specialty [place] [address] Bc Holman, [facility] Social History Tobacco Use Types Packs/Day Years Used Date Smoking Tobacco: Never Smokeless Tobacco: Never Sex and Gender Information Value Date Recorded Sex Assigned at Not on file Gender Identity Not on file Sexual Orientation Not on file documented as of this encounter Progress Notes * Bc Holman - 05/25/2022 11:59 PM EDT The [facility] has completed a benefits investigation for Melissa Rhonda BARAJAS to review their eligibility to fill at [facility]. Per patient's medication list they are prescribed OLUMIANT 2 MG TABLET and the medication is not able to be filled at the [facility] since the PA has been denied. documented in this encounter Plan of Treatment Upcoming Encounters Date Type Department Care Team (Late st Contact Info) Description 05/22/2024 4:45 PM EDT Office Visit Dermatology at [facility] [address] [place] [address] Didier Centeno MD [address] [facility] [place] [address] documented as of this encounter Visit Diagnoses Not on filedocumented in this encounter Care Teams Shear Operator Helper Relationship Specialty Start Date End Date None None PCP - General 04/09/21 documented as of this encounter
--- OUTSIDE RECORDS SUMMARY | 2024-04-12 00:32 | XMS_ITS | Encounter Summary ---
Author Organization [facility] [place] [address] Care Team Providers Care Kindergarten Instructional Assistant Name Role Phone Laquita Hernandez MD Primary Care Provider +1- [phone] Reason for Visit * Reason Comments Alopecia Encounter Details Date Type Department Care Team (Late st Contact Info) Description 05/02/2017 4:00 PM EST Office Visit Dermatology at [facility] [address] [place] [address] Didier Centeno MD [address] [facility] [place] [address] Alopecia areata (Primary Dx) Social History Tobacco Use Types Packs/Day Years Used Date Smoking Tobacco: Never Smokeless Tobacco: Never Sex and Gender Information Value Date Recorded Sex Assigned at Not on file Gender Identity Not on file Sexual Orientation Not on file documented as of this encounter Progress Notes * Didier Centeno MD - 05/02/2017 4:00 PM EST Images from the original note were not included. Chief Complaint: Alopecia areata f/u - improved History of Present Illness Melissa BARAJAS is a 41 y.o. female. History of alopecia areata on the left parietal scalp s/p ILK 10mg/ml who reports much improvement but new spot on the left scalp. No symptoms.. Tolerated ILK with no adverse effects. Antecedent History: History of alopecia areata on the left parietal scalp since Oct 2015. No redness or scale. No other areas of involvement. No known triggers. No history of autoimmune disorders. Started ILK 10mg/ml Nov 2016. Never been biopsied. Interval Changes in Medications and Medical, Surgical, Family and Social Histories Since Last Visit16 Jan 2017: no significant or pertinent interval changes. Skin Cancer History No personal history of skin cancer. No family history of skin cancer. Allergies No Known Allergies Medications None Review of Systems Significant for no other pertinent and acute changes in constitutional, other skin systems upon specific queries. 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 02 May 2017 16 Jan 2017 06 Dec 2016 Assessment and Plan Alopecia Areata Improved. New 1cm patch. Reviewed: alopecia areata, autoimmune disease sometimes triggered by stress and a/w other autoimmune disorders, chronic and recurrent. Recommend repeat ILK but could consider trial hiatus. Answered all questions. Patient elects ILK. ?? Total 1 patch [10 injections] treated with Kenalog 10mg/ml [Lot # [id number] / EXP date April 2018], total 1.0 ml after verbally discussing the [...] Didier Centeno MD FAAD Section of Dermatology [facility] documented in this encounter Plan of Treatment Upcoming Encounters Date Type Department Care Team (Late st Contact Info) Description 05/22/2024 4:45 PM EDT Office Visit Dermatology at [facility] [address] [place] [address] Didier Centeno MD [address] [facility] [place] [address] documented as of this encounter Visit Diagnoses Diagnosis Alopecia areata- Primary documented in this encounter Care Teams Kindergarten Instructional Assistant Relationship Specialty Start Date End Date Laquita Hernandez MD PCP - General Pediatrics 12/06/16 07/28/20 documented as of this encounter
--- OUTSIDE RECORDS SUMMARY | 2024-04-12 00:32 | XMS_ITS | Encounter Summary ---
Author Organization [facility] [place] [address] Care Team Providers Care Warehouse Administrator Name Role Phone Laquita Hernandez MD Primary Care Provider +1- [phone] Reason for Visit * Reason Comments Alopecia Encounter Details Date Type Department Care Team (Late st Contact Info) Description 03/11/2020 11:45 AM EST Office Visit Dermatology at [facility] [address] [place] [address] Didier Centeno MD [address] [facility] [place] [address] Alopecia areata Social History Tobacco Use Types Packs/Day Years Used Date Smoking Tobacco: Never Smokeless Tobacco: Never Sex and Gender Information Value Date Recorded Sex Assigned at Not on file Gender Identity Not on file Sexual Orientation Not on file documented as of this encounter Progress Notes * Didier Centeno MD - 03/11/2020 11:45 AM EST Images from the original note were not included. Dermatology Dermatology at [facility] FOLLOW-UP Chief Complaint: Alopecia areata flare History of Present Illness Melissa BARAJAS is a 44 y.o. female with history of alopecia areata who presents with the following concerns: ?? History of alopecia areata with flare on the back of the scalp. No symptoms or scaling. Here forILK Antecedent History: History of patch??of spreading but asymptomatic hair loss on the left side of the scalp since Oct 2015. No known triggers. No history of autoimmune disorders. Never been biopsied.Treated with ILK with excellent response. Interval changes [...] 3 sites treated with Kenalog 10mg/ml [Lot# [id number] EXP: MAY 2021], total 1.0 ml after verbally discussing the disease and treatment options, Kenalog IL method, expected results/course and potential adverse effects, including pain, dyspigmentation, atrophy, and recurrence. Patient verbally a greed. Area prepped with alcohol. Blanching noted. Hemostasis achieved with drysol, as needed. Post-procedure pain 0/10. Patient tolerated well with no complications. Wound care instructions provided. Follow-up: PRN or return to clinic prn for new suspicious lesions or if changes/symptoms in existing lesions develop. Note initiated by AN Jurado CMA has performed the documentation for this encounter in the presence of and actingas a scribe for Dr. Centeno. I performed the above scribed service and agree with the accuracy of thedocumentation in this encounter. Didier Centeno MD FAAD Section of Dermatology [facility] documented in this encounter Plan of Treatment Upcoming Encounters Date Type Department Care Team (Late st Contact Info) Description 05/22/2024 4:45 PM EDT Office Visit Dermatology at [facility] [address] [place] [address] Didier Centeno MD [address] [facility] [place] [address] documented as of this encounter Visit Diagnoses Diagnosis Alopecia areata documented in this encounter Care Teams Warehouse Administrator Relationship Specialty Start Date End Date Laquita Hernandez MD PCP - General Pediatrics 12/06/16 07/28/20 documented as of this encounter
--- OUTSIDE RECORDS SUMMARY | 2024-04-12 00:32 | XMS_ITS | Encounter Summary ---
Author Organization [facility] Address [address] [facility] [place] [address] Care Team Providers Care Automobile Repair Service Estimator Name Role Phone None Primary Care Provider [facility] Encounter Details Date Type Department Care Team (Late st Contact Info) Description 04/27/2022 3:00 PM EST Office Visit Dermatology [facility] [address] [place] [address] Didier Centeno MD [address] [facility] [place] [address] Alopecia areata Social History Tobacco Use Types Packs/Day Years Used Date Smoking Tobacco: Never Smokeless Tobacco: Never Sex and Gender Information Value Date Recorded Sex Assigned at Not on file Gender Identity Not on file Sexual Orientation Not on file documented as of this encounter Progress Notes * Didier Centeno MD - 04/27/2022 3:00 PM EST Images from the original note were not included. DEPARTMENT OF DERMATOLOGY Medical Dermatology Clinic Provider: Didier Centeno MD FAAD at Dermatology [facility] Patient's preferred name Melissa? PAST MEDICAL HISTORY (if blank, patient denies history) Melanoma ??- Dysplastic nevi ??- SCC ??- BCC ??- AK []?cryotherapy []?efudex []?PDT []?Other ? Relevant Medications []?Immunosuppression []?Transplant []?Oncogenic medication []?Nicotinamide 500mg po bid Alopecia Areata ILK Other relevant history? FAMILY HISTORY (if blank, patient denies history) Melanoma ??- NMSC ??- Other relevant history ??- SOCIAL HISTORY ?? Last seen 10/04/2021. History of Present Illness: Melissa BARAJAS is 46 y.o. and here for the following: ?? History of alopecia areata status post IL Kenalog, last injection September 2021 who reports worsening since last visit. Excimer laser denied by insurance. Medications: Reviewed in eD-H Allergies: Reviewed in eD-H Skin Examination Standby: Janes Barr MA Well developed, well-nourished in no apparent distress, alert and oriented to time, person, place and situation. Focused examination of the skin of the scalp significant for the following: Exam Findings/Assessment/Plan Alopecia Areata 6x4 cm patch of non scarring alopecia with no erythema or hair growth on the occipital scalp Worsening since last visit. ?? Recommend repeat??intra lesional??Kenalog and consider,??topical or oral??JESSIE??inhibitor.?Limited data on topical Jessie inhibitor such as tofacitinib 2% showing some efficacy during use but recurrence when stopping. ??Ruxolitinib 1.5% showed no significant effect on alopecia areata in a 2019 study. ?? Discussed clinical impression?and recommendations above. ??Discussed major risk of oral jacketedvision paring thromboembolism. ??Answered all questions. ??Patient elects repeat intralesional Kenalog and??systemic Jessie inhibitors. ??Handouts on tofacitinib and baricitinib given to the patient. ? Occipital scalp??treated with Kenalog 10??mg/ml [Lot#??[id number]??/ Exp??JUL 2023], total??1.5??ml after verbally discussing the disease and treatment options, Kenalog IL method, expected results/course and potential adverse effects, including pain, dyspigmentation, atrophy, and recurrence. Patient verbally agreed. Area prepped with alcohol. Blanching noted. Hemostasis achieved with drysol, as needed. Post-procedure pain 0/10. Patient tolerated well with no complications. Wound care instructions provided. Follow-up: 3-4 weeks for Alopecia. Return sooner as needed for suspicious lesion, new or worsening dermatitis. [] Recall placed [] Forwarded to enrobing machine operator [x] Patient scheduled before exiting Scribe attestation: Janes Barr MA has performed the documentation for this encounter in the presence of and acting as a scribe for MD LAWSON Regalado. I performed the above scribed service and agree with the accuracy of the documentation in this encounter. Reviewed and signed by: MD LAWSON Regalado Dermatology [facility] documented in this encounter Plan of Treatment Upcoming Encounters Date Type Department Care Team (Late st Contact Info) Description 05/22/2024 4:45 PM EDT Office Visit Dermatology at [facility] [address] [place] [address] Didier Centeno MD [address] [facility] [place] [address] documented as of this encounter Visit Diagnoses Diagnosis Alopecia areata documented in this encounter Administered Medications Inactive Administered Medications - up to 3 most recent administrations Medication Order MAR Action Action Date Dose Rate Site triamcinolone acetonide (Kenalog) (10 mg/mL) injection 10 mg 10 mg, Intra-Lesional, ONCE, 1 dose, On Mon04/27/22 at 1545, Routine Given 04/27/2022 3:21 PM EST 10 mg 20-Other (document in comment section) documented in this encounter Care Teams Automobile Repair Service Estimator Relationship Specialty Start Date End Date None None PCP - General 04/09/21 documented as of this encounter
--- OUTSIDE RECORDS SUMMARY | 2024-04-12 00:32 | XMS_ITS | Encounter Summary ---
Author Organization [facility] Address [address] [facility] [place] [address] Care Team Providers Care Alarm Service Technician Name Role Phone None Primary Care Provider [facility] Encounter Details Date Type Department Care Team (Late st Contact Info) Description 05/25/2022 4:15 PM EDT Office Visit Dermatology [facility] [address] [place] [address] Didier Centeno MD [address] [facility] [place] [address] Alopecia areata; High risk medication use Social History Tobacco Use Types Packs/Day Years Used Date Smoking Tobacco: Never Smokeless Tobacco: Never Sex and Gender Information Value Date Recorded Sex Assigned at Not on file Gender Identity Not on file Sexual Orientation Not on file documented as of this encounter Progress Notes * Didier Centeno MD - 05/25/2022 4:15 PM EDT Images from the original note were not included. DEPARTMENT OF DERMATOLOGY Medical Dermatology Clinic Provider: Didier Centeno MD FAAD at Dermatology [facility] Patient's preferred name Melissa? PAST MEDICAL HISTORY (if blank, patient denies history) Melanoma ??- Dysplastic nevi ??- SCC ??- BCC ??- AK []?cryotherapy []?efudex []?PDT []?Other ? Relevant Medications []?Immunosuppression []?Transplant []?Oncogenic medication []?Nicotinamide 500mg po bid Alopecia Areata ILK Other relevant history? FAMILY HISTORY (if blank, patient denies history) Melanoma ??- NMSC ??- Other relevant history ??- SOCIAL HISTORY ?? Last seen 04/27/2022. History of Present Illness: Melissa BARAJAS is 46 y.o. and here for the following: ?? History of alopecia areata status post IL Kenalog who reports worsening since last visit. Excimer laser denied by insurance. Medications: Reviewed in eD-H Allergies: Reviewed in eD-H Skin Examination Standby: Nathalia Jarvis RN Well developed, well-nourished in no apparent distress, alert and oriented to time, person, place and situation. Focused examination of the skin of the scalp significant for the following: Exam Findings/Assessment/Plan Alopecia Areata 6x3.5 cm patch of non scarring alopecia with no erythema or hair growth on the occipital scalp No change with repeated ILK. Recommend repeat??intra lesional??Kenalog and recommend oral??JESSIE??inhibitor.? Discussed clinical impression?and recommendations above. ??Discussed major risk of oral JESSIE inhibitor associated cardiovascular complications, such asthromboembolism. ??Answered all questions. ??Patient elects repeat intralesional Kenalog and??systemic Jessie inhibitors. ??Handout on baricitinib giv en to the patient. ? Occipital scalp??treated with Kenalog 40??mg/ml [Lot#??[id number]??/ Exp??02/2023], total??1.25??ml after verbally discussing the disease and treatment options, Kenalog IL method, expected results/course and potential adverse effects, including pain, dyspigmentation, atrophy, and recurrence. Marissa ent verbally agreed. Area prepped with alcohol. Blanching noted. Hemostasis achieved with drysol, as needed. Post-procedure pain 0/10. Patient tolerated well with no complications. Wound care instructions provided. ??? If labs normal, start Rx: baricitinib 2mg daily. Taking High Risk Medication [Adaliumumab] Baracitinib is an JESSIE inhibotor in the inflammatory pathway and is approved for the treatment of alopecia areata. Risks include serious infections, such as tuberculosis; skin, organ and hematologicalmalignancies; serious allergic reactions (including angioedema, breathlessness and low blood pressure) and hypersensitivity (allergy) reactions (including rash and urticaria); injection site reactions include pain, swelling, itch, thickening, bleeding, and bruising, cardiovascular complications such as blood clots. Labs today: CBC, CMP, lipids, Quanteferon Gold Follow-up: 6 weeks for Alopecia areata. Return sooner as needed for suspicious lesion, new or worsening dermatitis. [] Recall placed [] Forwarded to care team coordinator scheduler [x] Patient scheduled before exiting Scribe attestation: Nathalia Jarvis, AUGUSTO has performed the documentation for this encounter in the presence of and acting as a scribe for MD LAWSON Regalado. I performed the above scribed service and agree with the accuracy of the documentation in this encounter. Reviewed and signed by: Didier Centeno MD FAAAba Dermatology [facility] documented in this encounter Plan of Treatment Upcoming Encounters Date Type Department Care Team (Late st Contact Info) Description 05/22/2024 4:45 PM EDT Office Visit Dermatology at [facility] [address] [place] [address] Didier Centeno MD [address] [facility] [place] [address] documented as of this encounter Visit Diagnoses Diagnosis Alopecia areata High risk medication use Encounter for long-term (current) use of other medications documented in this encounter Care Teams Alarm Service Technician Relationship Specialty Start Date End Date None None PCP - General 04/09/21 documented as of this encounter
--- OUTSIDE RECORDS SUMMARY | 2024-04-12 00:32 | XMS_ITS | Encounter Summary ---
Author Organization [facility] [place] [address] Care Team Providers Care Border Measurer Name Role Phone Laquita Hernandez MD Primary Care Provider +1- [phone] Reason for Visit * Reason Comments Follow-up Encounter Details Date Type Department Care Team (Late st Contact Info) Description 08/01/2018 3:45 PM EDT Office Visit Dermatology at [facility] [address] [place] [address] Didier Centeno MD [address] [facility] [place] [address] Alopecia areata (Primary Dx) Social History Tobacco Use Types Packs/Day Years Used Date Smoking Tobacco: Never Smokeless Tobacco: Never Sex and Gender Information Value Date Recorded Sex Assigned at Not on file Gender Identity Not on file Sexual Orientation Not on file documented as of this encounter Progress Notes * Didier Centeno MD - 08/01/2018 3:45 PM EDT Images from the original note were not included. Dermatology [place], [place] FOLLOW-UP Chief Complaint: Alopecia areata f/u - new spot History of Present Illness Melissa BARAJAS is a 42 y.o. female who presents with the following concerns: History of alopecia areata, s/p ILK with good response in the past. Patient notes onset of hair loss that was first identified approximately a month ago [...] treated with Kenalog 20 mg/ml (Lot #: [id number], Exp.: May 2019), total 1.0 ml after [...] Didier Centeno MD FAAD Section of Dermatology [facility] documented in this encounter Plan of Treatment Upcoming Encounters Date Type Department Care Team (Late st Contact Info) Description 05/22/2024 4:45 PM EDT Office Visit Dermatology at [facility] [address] [place] [address] Didier Centeno MD [address] [facility] [place] [address] documented as of this encounter Visit Diagnoses Diagnosis Alopecia areata- Primary documented in this encounter Administered Medications Inactive Administered Medications - up to 3 most recent administrations Medication Order MAR Action Action Date Dose Rate Site triamcinolone acetonide (KENALOG-40) injection 40 mg 40 mg, Intra-Lesional, ONCE, 1 dose, On Mon08/01/18 at 1645, Routine Given 08/01/2018 4:24 PM EDT 40 mg documented in this encounter Care Teams Border Measurer Relationship Specialty Start Date End Date Laquita Hernandez MD PCP - General Pediatrics 12/06/16 07/28/20 documented as of this encounter
--- OUTSIDE RECORDS SUMMARY | 2024-04-12 00:32 | XMS_ITS | Encounter Summary ---
Author Organization [facility] [place] [address] Care Team Providers Care Raw Products Director Name Role Phone Laquita Hernandez MD Primary Care Provider +1- [phone] Encounter Details Date Type Department Care Team (Late st Contact Info) Description 01/16/2017 4:00 PM EST Office Visit Dermatology at [facility] [address] [place] [address] Didier Centeno MD [address] [facility] [place] [address] Alopecia areata Social History Tobacco Use Types Packs/Day Years Used Date Smoking Tobacco: Never Smokeless Tobacco: Never Sex and Gender Information Value Date Recorded Sex Assigned at Not on file Gender Identity Not on file Sexual Orientation Not on file documented as of this encounter Progress Notes * Didier Centeno MD - 01/16/2017 4:00 PM EST Images from the original note were not included. Chief Complaint: Alopecia areata f/u - improved History of Present Illness Melissa BARAJAS is a 41 y.o. female. History of alopecia areata on the left parietal scalp s/p ILK 10mg/ml last visit with improvement -new terminal hairs. 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 Well developed, well-nourished in no apparent distress, alert and oriented to time, person, place and situation. Focused examination of the scalp, hair significant for the following: ?? 6 cm x 9 cm patch of nonscaring alopecia; 80% filled in with terminal of hairs but still slightly hypodense Images Photo(s) taken by Rhonda Centeno MD. with patient's verbal permission for use for clinical and education purposes. 16 Jan 2017 06 Dec 2016 Assessment and Plan Alopecia Areata Improved. Reviewed: alopecia areata, autoimmune disease sometimes triggered by stress and a/w other autoimmune disorders, chronic and recurrent. Recommend repeat ILK but could consider trial hiatus. Answered all questions. Patient elects ILK. ?? Total 1 patch [10 injections] treated with Kenalog 10mg/ml [Lot # [id number] / EXP date April 2018], total 1.0 [...] Centeno MD FAAD Section of Dermatology [facility] documented in this encounter Plan of Treatment Upcoming Encounters Date Type Department Care Team (Late st Contact Info) Description 05/22/2024 4:45 PM EDT Office Visit Dermatology at [facility] [address] [place] [address] Didier Centeno MD [address] [facility] [place] [address] documented as of this encounter Visit Diagnoses Diagnosis Alopecia areata documented in this encounter Administered Medications Inactive Administered Medications - up to 3 most recent administrations Medication Order MAR Action Action Date Dose Rate Site triamcinolone acetonide (KENALOG) injection 10 mg 10 mg, Intra-Lesional, ONCE, 1 dose, On Mon01/16/17 at 1700, Routine Given 01/16/2017 4:43 PM EST 10 mg 20-Other (document in comment section) documented in this encounter Care Teams Raw Products Director Relationship Specialty Start Date End Date Laquita Hernandez MD PCP - General Pediatrics 12/06/16 07/28/20 documented as of this encounter
--- OUTSIDE RECORDS SUMMARY | 2024-04-12 00:32 | XMS_ITS | Encounter Summary ---
Author Organization [facility] Address [address] [facility] [place] [address] Care Team Providers Care Chief Deputy Coroner Name Role Phone None Primary Care Provider [facility] Encounter Details Date Type Department Care Team (Latest Contact Info) Description 04/27/2022 Travel Social History Tobacco Use Types Packs/Day [...] 4:45 PM EDT Office Visit Dermatology at [facility] [address] [place] [address] Didier Centeno MD [address] [facility] [place] [address] documented as of this encounter Visit Diagnoses Not on filedocumented in this encounter Care Teams Chief Deputy Coroner Relationship Specialty Start Date End Date None None PCP - General 04/09/21 documented as of this encounter
--- OUTSIDE RECORDS SUMMARY | 2024-04-12 00:32 | XMS_ITS | Encounter Summary ---
Author Organization [facility] Address [address] [place] [address] Care Team Providers Care Credit Reporter Name Role Phone None [facility] Encounter Details Date Type Department Care Team (Latest Contact Info) Description 05/25/2022 Travel Social History Tobacco Use Types Packs/Day [...] 4:45 PM EDT Office Visit Dermatology at [facility] [address] [place] [address] Didier Centeno MD [address] [facility] [place] [address] documented as of this encounter Visit Diagnoses Not on filedocumented in this encounter Care Teams Credit Reporter Relationship Specialty Start Date End Date None None PCP - General 04/09/21 documented as of this encounter
--- OUTSIDE RECORDS SUMMARY | 2024-04-12 00:32 | XMS_ITS | Encounter Summary ---
Author Organization [facility] Address [facility] [place] [address] Care Team Providers Care Medical Case Worker Name Role Phone None [facility] Encounter Details Date Type Department Care Team (Late st Contact Info) Description 07/20/2021 9:15 AM EDT Office Visit Dermatology [facility] [address] [place] [address] Didier Centeno MD [address] [facility] [address] Alopecia areata Social History Tobacco Use Types Packs/Day Years Used Date Smoking Tobacco: Never Smokeless Tobacco: Never Sex and Gender Information Value Date Recorded Sex Assigned at Not on file Gender Identity Not on file Sexual Orientation Not on file documented as of this encounter Progress Notes * Mo Modi, HOUSEKEEPING MANAGER - 07/20/2021 9:15 AM EDT Images from the original note were not included. DEPARTMENT OF DERMATOLOGY Medical Dermatology Clinic Provider: Didier Centeno MD FAAD at Dermatology [facility] Patient's preferred name Melissa ?? PAST MEDICAL HISTORY (if blank, patient denies history) Melanoma ??- Dysplastic nevi ??- SCC ??- BCC ??- AK []? cryotherapy []? efudex []? PDT []? Other Relevant Medications []? Immunosuppression []? Transplant []? Oncogenic medication []? Nicotinamide 500mg po bid Other relevant history Alopecia Areata - ILK FAMILY HISTORY (if blank, patient denies history) Melanoma ??- NMSC ??- Other relevant history ??- SOCIAL HISTORY ? History of Present Illness: Melissa BARAJAS is 45 y.o. and here for the following: ??? History of alopecia areata status post intralesional Kenalog injections here for reevaluation. Feels like there is no growth on the back of the scalp. Tolerated intralesional Kenalog well. Medications: Reviewed in eD-H Allergies: Reviewed in eD-H Skin Examination Standby:MO MODI LPN Well developed, well-nourished in no apparent distress, alert and oriented to time, person, place and situation. Focused examination of the skin of the scalp significant for the following: Exam Findings/Assessment/Plan Alopecia Areata 2.5 cm x 5 cm patch of nonscarring alopecia on the occipital scalp. Terminal hairs with symmetric density on the frontal scalp, bilaterally. ?? Resolution on the left frontal scalp. No improvement on the occipital scalp. Recommend repeat ultrasound Kenalog and consider EXTRACT laser or topical or oral JESSIE inhibitor. Limited data on topical Jessie inhibitor such as tofacitinib 2% showing some efficacy during use but recurrence when stopping. Ruxolitinib 1.5% showed no significant effect on alopecia areata and a 2019 study. Discussed clinical impression and recommendations above. Discussed major risk of oral jacketed vision paring thromboembolism. Answered all questions. Patient elects repeat intralesional Kenalog and topical JESSIE inhibitor. ? Occipital scalp treated with Kenalog 10 mg/ml [Lot# [id number]/ Exp Oct 2022], total 1ml after verbally discussing the disease and treatment options, Kenalog IL method, expected results/course and potential adverse effects, including pain, dyspigmentation, atrophy, and recurrence. Patient verballyagreed. Area prepped with alcohol. Blanching noted. Hemostasis achieved with drysol, as needed. Post-procedure pain 0/10. Patient tolerated well with no complications. Wound care instructions provided. ?? If able to procure, start tofacitinib 2% to the scalp for 3 months. If this is unavailable, thenplan to start phototherapy. Follow-up: 4-5 weeks for ILK injection. Return sooner as needed for suspicious lesion, new or worsening dermatitis. [] Recall placed [] Forwarded to capital campaign fundraiser [x] Patient scheduled before exiting Scribe attestation: MO MODI LPN has performed the documentation for this encounter in the presence of and acting as a scribe for MD LAWSON Regalado. I performed the above scribed service and agree with the accuracy of the documentation in this encounter. Reviewed and signed by: MD LAWSON Regalado Dermatology [facility] documented in this encounter Plan of Treatment Upcoming Encounters Date Type Department Care Team (Late st Contact Info) Description 05/22/2024 4:45 PM EDT Office Visit Dermatology at [facility] [address] [place] [address] Didier Centeno MD [address] [facility] [place] [address] documented as of this encounter Visit Diagnoses Diagnosis Alopecia areata documented in this encounter Administered Medications Inactive Administered Medications - up to 3 most recent administrations Medication Order MAR Action Action Date Dose Rate Site triamcinolone acetonide (Kenalog) (10 mg/mL) injection 10 mg 10 mg, Intra-Lesional, ONCE, 1 dose, On Mon07/20/21 at 1100, Routine Given 07/20/2021 12:02 PM EDT 10 mg 20-Other (document in comment section) documented in this encounter Care Teams Medical Case Worker Relationship Specialty Start Date End Date None None PCP - General 04/09/21 documented as of this encounter
--- OUTSIDE RECORDS SUMMARY | 2024-04-12 00:32 | XMS_ITS | Encounter Summary ---
Author Organization [facility] [place] [address] Care Team Providers Care Client Resolution Specialist Name Role Phone Unavailable Primary Care Provider Unavailabl e Encounter Details Date Type Department Care Team (Late st Contact Info) Description 04/08/2021 4:00 PM EST Office Visit Dermatology [facility] [address] [place] [address] Didier Centeno MD [address] [facility] [address] Alopecia areata Social History Tobacco Use Types Packs/Day Years Used Date Smoking Tobacco: Never Smokeless Tobacco: Never Sex and Gender Information Value Date Recorded Sex Assigned at Not on file Gender Identity Not on file Sexual Orientation Not on file documented as of this encounter Progress Notes * Didier Centeno MD - 04/08/2021 4:00 PM EST Images from the original note were not included. DEPARTMENT OF DERMATOLOGY Medical Dermatology Clinic Provider: Didier Centeno MD FAAD at Dermatology [facility] Patient's preferred name Melissa PAST MEDICAL [...] SOCIAL HISTORY History of Present Illness: Melissa BARAJAS is 45 y.o. and here for the following: ??? History of alopecia areata s/p ILK here for follow-up. Tolerating ILK well. Possible improvement in some areas but other areas notes no [...] Total 1 treated with Kenalog 40mg/ml [Lot# [id number]/ Exp MAY2022], total 0.6 ml after verballydiscussing the disease and treatment [...] dermatitis. [] Recall placed [] Forwarded to maintenance scheduler [x] Patient scheduled before exiting Scribe attestation: KODY Carrasco has performed the documentation for this encounter in the presence of and acting as a scribe for MD LAWSON Regalado. I performed the above scribed service and agree with the accuracy of the documentation in this encounter. Reviewed and signed by: MD LAWSON Regalado Dermatology [facility] documented in this encounter Plan of Treatment Upcoming Encounters Date Type Department Care Team (Late st Contact Info) Description 05/22/2024 4:45 PM EDT Office Visit Dermatology at [facility] [address] [place] [address] Didier Centeno MD [address] [facility] [place] [address] documented as of this encounter Visit Diagnoses Diagnosis Alopecia areata documented in this encounter Administered Medications Inactive Administered Medications - up to 3 most recent administrations Medication Order MAR Action Action Date Dose Rate Site triamcinolone acetonide (Kenalog-40) (40 mg/mL) injection 40 mg 40 mg, Intra-Lesional, ONCE, 1 dose, On Chary 04/08/21 at 1645, Routine Given 04/08/2021 4:16 PM EST 40 mg documented in this encounter
--- OUTSIDE RECORDS SUMMARY | 2024-04-12 00:32 | XMS_ITS | Encounter Summary ---
Author Organization [facility] Address [address] [facility] [address] [place] [address] Care Team Providers Care Scrap Breaker Name Role Phone Laquita Hernandez MD Primary Care Provider [phone] Reason for Visit * Reason Comments Alopecia Encounter Details Date Type Department Care Team (Late st Contact Info) Description 12/06/2016 3:00 PM EDT Office Visit Dermatology at [facility] [address] [place] [address] Didier Centeno MD [address] [facility] [place] [address] Alopecia areata (Primary Dx) Social History Tobacco Use Types Packs/Day Years Used Date Smoking Tobacco: Never Smokeless Tobacco: Never Sex and Gender Information Value Date Recorded Sex Assigned at Not on file Gender Identity Not on file Sexual Orientation Not on file documented as of this encounter Progress Notes * Didier Centeno MD - 12/06/2016 3:00 PM EDT Images from the original note were not included. DEPARTMENT DERMATOLOGY AT [facility] Dermatology At [facility] [address] [facility] [address] NEW PATIENT Chief Complaint: large patch of hair loss on left scalp History of Present Illness Melissa BARAJAS is a 41 y.o. female. Complains of patch of spreading but asymptomatic hair loss on the left side of the scalp since Oct 2015. Started as a small bald patch. No symptoms. Some new growth in areas but spreading towards theback of the head. No redness or scale. No other areas of involvement. No known triggers. No historyof autoimmune disorders. Never been treated or biopsied. ? 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 Assessment and Plan Alopecia Areata Localized to the left scalp with areas of new terminal hair growth without treatment, but spreading. Recommend treatment with ILK on the areas of [...] worsening or new dermatitis. Note initiated by MYRAIM MARIE LPN has performed the documentation for this encounter in the presence of and acting as a scribe for Dr. Centeno. I performed the above scribed service and agree with the accuracy of the documentation in this encounter. Didier Centeno MD FAAD Section of Dermatology [facility] documented in this encounter Plan of Treatment Upcoming Encounters Date Type Department Care Team (Late st Contact Info) Description 05/22/2024 4:45 PM EDT Office Visit Dermatology at [facility] [address] [place] [address] Didier Centeno MD [address] [facility] [place] [address] documented as of this encounter Visit Diagnoses Diagnosis Alopecia areata- Primary documented in this encounter Care Teams Scrap Breaker Relationship Specialty Start Date End Date Laquita Hernandez MD PCP - General Pediatrics 12/06/16 07/28/20 documented as of this encounter
--- OUTSIDE RECORDS SUMMARY | 2024-04-12 00:32 | XMS_ITS | Encounter Summary ---
Author Organization [facility] [place] [address] Care Team Providers Care Layout Operator Name Role Phone None Primary Care Provider Unavailabl e Encounter Details Date Type Department Care Team (Late st Contact Info) Description 10/20/2004 Orders Only Obstetrics [place] [address] Nikki Jimenez MD [facility] [address] OBSTETRICS [place] [address] Social History Tobacco Use Types Packs/Day Years [...] 4:45 PM EDT Office Visit Dermatology at [facility] [address] [place] [address] Didier Centeno MD [address] [facility] [place] [address] documented as of this encounter Procedures Procedure Name Priority Date/Time Associated Diagnosis Comments SURGICAL PATHOLOGY REPORT Routine 10/26/2004 4:45 PM EDT documented in this encounter Results * Surgical Pathology Report (10/26/2004 4:45 PM EDT) Surgical Pathology Report [id number] ? Location: BP; BP18; A The signing pathologist has (i) examined the relevant preparation(s) for the specimen(s) and (ii) rendered or confirmed the diagnosis(es). . ?Pathology Surgical Pathology Final Report Clinical Information Specimen Submitted: A - (R) & (L) fallopian tubes. Clinical History: Bilat. tubal ligation. Gross Description Labeled/Fixative: ? Labeled with the patient's name and medical record ?number, formalin. Qty/Size/Weight: ?Two, 1.4 x 0.5 x 0.4 cm. Tissue Description: ?? Garsia-pink tubular portions of tissue, each presenting ?with a small, central pinpoint lumen. Sections/Processi ng: ??One is marked with black ink; the other is unmarked. ?A employee's representative cross section of each is submitted. ?(R1) ??aje/PPS Microscopic Description Slides reviewed, microscopic description not recorded. Diagnosis Segments of right and left fallopian tubes: ?Completely transected fallopian tubes. CR-0 10/27/04 AVT 10/27/04 Verified by: ? Kj Sen MD ?Pathologist ?(Electronic Signature) The attending pathologist whose signature appears on this report has reviewed all diagnostic slides and has edited the gross and/or microscopic portion of the report in rendering the final pathologic diagnosis. [facility] 10/26/2004 4:45 PM EDT E Marina Jimenez MD PATHOLOGY/CYTOLOG Y ORDERABLES Performing Organization Address City/State/[facility] Co de Phone Number [facility] documented in this encounter Visit Diagnoses Not on filedocumented in this encounter Care Teams Layout Operator Relationship Specialty Start Date End Date None None PCP - General 04/09/21 documented as of this encounter
--- OUTSIDE RECORDS SUMMARY | 2024-04-12 00:32 | XMS_ITS | Encounter Summary ---
Author Organization [facility] [place] [address] Care Team Providers Care Fuller Brush Man Name Role Phone None Primary Care Provider Unavailabl e Reason for Visit * Reason Comments Follow-up Encounter Details Date Type Department Care Team (Late st Contact Info) Description 08/17/2021 3:45 PM EDT Office Visit Dermatology [facility] [address] [place] [address] Didier Centeno MD [address] [facility] [place] [address] Alopecia areata Social History Tobacco Use Types Packs/Day Years Used Date Smoking Tobacco: Never Smokeless Tobacco: Never Sex and Gender Information Value Date Recorded Sex Assigned at Not on file Gender Identity Not on file Sexual Orientation Not on file documented as of this encounter Progress Notes * Didier Centeno MD - 08/17/2021 3:45 PM EDT Images from the original note were not included. DEPARTMENT OF DERMATOLOGY Medical Dermatology Clinic Provider: Didier Centeno MD FAAD at Dermatology [facility] Patient's preferred name Melissa? PAST MEDICAL HISTORY (if blank, patient denies history) Melanoma ??- Dysplastic nevi ??- SCC ??- BCC ??- AK []?cryotherapy []?efudex []?PDT []?Other ? Relevant Medications []?Immunosuppression []?Transplant []?Oncogenic medication []?Nicotinamide 500mg po bid Alopecia Areata ILK Other relevant history?? FAMILY HISTORY (if blank, patient denies history) Melanoma ??- NMSC ??- Other relevant history ??- SOCIAL HISTORY ?? History of Present Illness: Melissa BARAJAS is 45 y.o. and here for the following: ??? History of recurrent alopecia areata status post intralesional Kenalog last visit with new spoton the left side of the scalp. Previously, fairly well responsive to intralesional Kenalog though some persistent areas in the occipital scalp. Excimer laser denied by insurance in 2021. Never been otherwise treated or biopsied. Medications: Reviewed in eD-H Allergies: Reviewed in eD-H Skin Examination Standby: MO SARABIA LPN Well developed, well-nourished in no apparent distress, alert and oriented to time, person, place and situation. Focused examination of the skin of the scalp significant for the following: Exam Findings/Assessment/Plan Alopecia Areata 2 cm patch non scarring alopecia on left lower frontal scalp. 3 cm patch of non scarring alopecia with new dense terminal hairs and omnious on occipital scalp; 2 cm patch of non scarring alopecia with no new hairs on the lower occipital scalp Much improvement on the occipital scalp but with persistent area at the lower pole and a new patch on the left parietal scalp. Recommend repeat intra lesional Kenalog and consider, topical or oral JESSIE inhibitor. Limited data on topical Jessie inhibitor such as tofacitinib 2% showing some efficacy during use but recurrence when stopping. Ruxolitinib 1.5% showed no significant effect on alopecia areata and a 2019 study. ?? Discussed clinical impression?? and recommendations above. Discussed major risk of oral jacketed vision paring thromboembolism. Answered all questions. Patient elects repeat intralesional Kenalog andsystemic Jessie inhibitors. Handouts on tofacitinib and baricitinib given to the patient. ? Occipital scalp treated with Kenalog 10 mg/ml [Lot# [id number] / Exp Oct 2022], total 0.7 ml afterverbally discussing the disease and treatment options, Kenalog IL method, expected results/course and potential adverse effects, including pain, dyspigmentation, atrophy, and recurrence. Patient verbally agreed. Area prepped with alcohol. Blanching noted. Hemostasis achieved with drysol, as needed.Post-procedure pain 0/10. Patient tolerated well with no complications. Wound care instructions provided. Follow-up: 6 weeks fu Alopecia. Return sooner as needed for suspicious lesion, new or worsening dermatitis. [] Recall placed [] Forwarded to streetcar starter [x] Patient scheduled before exiting Scribe attestation: MO SARABIA LPN has performed the documentation for this encounter in the presence of and acting as a scribe for MD LAWSON Regalado. I performed the above scribed service and agree with the accuracy of the documentation in this encounter. Reviewed and signed by: MD LAWSON Regalado Dermatology [facility] documented in this encounter Plan of Treatment Upcoming Encounters Date Type Department Care Team (Late st Contact Info) Description 05/22/2024 4:45 PM EDT Office Visit Dermatology at [facility] [address] [place] [address] Didier Centeno MD [address] [facility] [place] [address] documented as of this encounter Visit Diagnoses Diagnosis Alopecia areata documented in this encounter Administered Medications Inactive Administered Medications - up to 3 most recent administrations Medication Order MAR Action Action Date Dose Rate Site triamcinolone acetonide (Kenalog) (10 mg/mL) injection 10 mg 10 mg, Intra-Lesional, ONCE, 1 dose, On Tu08/17/21 at 1715, Routine Given 08/17/2021 4:55 PM EDT 10 mg 20-Other (document in comment section) documented in this encounter Care Teams Fuller Brush Man Relationship Specialty Start Date End Date None None PCP - General 04/09/21 documented as of this encounter
--- OUTSIDE RECORDS SUMMARY | 2024-04-12 00:32 | XMS_ITS | Encounter Summary ---
Author Organization [facility] [place] [address] Care Team Providers Care C D Still Operator Name Role Phone Unavailable Primary Care Provider Unavailabl e Encounter Details Date Type Department Care Team (Late st Contact Info) Description 01/25/2021 8:15 AM EST Office Visit Dermatology [facility] [address] [place] [address] Didier Centeno MD [address] [facility] [place] [address] Alopecia areata (Primary Dx) Social History Tobacco Use Types Packs/Day Years Used Date Smoking Tobacco: Never Smokeless Tobacco: Never Sex and Gender Information Value Date Recorded Sex Assigned at Not on file Gender Identity Not on file Sexual Orientation Not on file documented as of this encounter Progress Notes * Didier Centeno MD - 01/25/2021 8:15 AM EST Images from the original note were not included. DEPARTMENT OF DERMATOLOGY Medical Dermatology Clinic Provider: Didier Centeno MD FAAD at Dermatology [facility] Patient's preferred name Melissa PAST MEDICAL HISTORY Melanoma Dysplastic nevi SCC BCC [place] [] cryotherapy [] efudex [] PDT [] Other Relevant Medications [] Immunosuppression [] Oncogenic medication [] Nicotinamide Other relevant history Alopecia Areata - ILK FAMILY HISTORY Melanoma NMSC Other relevant history SOCIAL HISTORY Occupation: History of Present Illness: Melissa BARAJAS is 45 y.o. and here for the following: ??? History of alopecia areata with new sites on the left side and back of the scalp for weeks to afew months. No symptoms. Not treated. Antecedent History: History of patch??of spreading but asymptomatic hair loss on the left side of the scalp since Oct 2015. No known triggers. No history of autoimmune disorders. Never been biopsied.Treated with ILK with excellent response. Medications: Reviewed in eD-H Allergies: Reviewed in eD-H Skin Examination Standby: Shanique Rosales LPN Well developed, well-nourished in no apparent distress, alert and oriented to time, person, place and situation. Focused examination of the skin of the scalp significant for the following: Exam Findings/Assessment/Plan Alopecia Areata 4 x 3 cm non scaring isiah of alopecia on the left frontal parietal scalp. 3 cmm patch of non scaring alopecia on the left occipital scalp. 1 cm patch of non scaring alopecia on midline mid occipitalscalp. Flaring of nonscarring alopecia c/w alopecia areata. Reviewed: alopecia areata, recommend ILK since she has had a great response in the past. Reviewed major risk of skin atrophy with ILK. Answered all questions. Patient agrees to ILK. ? Total 3 sites treated with Kenalog 10 mg/ml [Lot# [id number] EXP: APR 2022], total 1.5 ml after verbally discussing the disease and treatment options, Kenalog IL method, expected results/course and potential adverse effects, including pain, dyspigmentation, atrophy, and recurrence. Patient verbally agreed. Area prepped with alcohol. Blanching noted. Hemostasis achieved with drysol, as needed. Post-procedure pain 0/10. Patient tolerated well with no complications. Wound care instructions provided. Follow-up: 4 weeks; may cancel if hair regrowth. Return sooner as needed for suspicious lesion, newor worsening dermatitis. [] Recall placed [] Forwarded to wood heel flap inserter [x] Patient scheduled before exiting Scribe attestation: Shanique Rosales LPN has performed the documentation for this encounter in the presence of and acting as a scribe for MD LAWSON Regalado. I performed the above scribed service and agree with the accuracy of the documentation in this encounter. Reviewed and signed by: MD LAWSON Regalado Dermatology [facility] documented in this encounter Plan of Treatment Upcoming Encounters Date Type Department Care Team (Late st Contact Info) Description 05/22/2024 4:45 PM EDT Office Visit Dermatology at [facility] [address] [place] [address] Didier Centeno MD [address] [facility] [place] [address] documented as of this encounter Visit Diagnoses Diagnosis Alopecia areata- Primary documented in this encounter Administered Medications Inactive Administered Medications - up to 3 most recent administrations Medication Order MAR Action Action Date Dose Rate Site triamcinolone acetonide (Kenalog) (10 mg/mL) injection 10 mg 10 mg, Intra-Lesional, ONCE, 1 dose, On 01/25/21 at 1600, Routine Given 01/25/2021 3:32 PM EST 10 mg documented in this encounter
--- OUTSIDE RECORDS SUMMARY | 2024-04-12 00:32 | XMS_ITS | Encounter Summary ---
Author Organization [facility] [place] [address] Care Team Providers Care Ground [employer] [address] Railway Name Role Phone Laquita Hernandez MD Primary Care Provider [phone]- [phone] Reason for Visit * Reason Comments Skin Lesion Encounter Details Date Type Department Care Team (Late st Contact Info) Description 07/11/2017 4:00 PM EDT Office Visit Dermatology at [facility] [address] [place] [address] Didier Centeno MD [address] [facility] [place] [address] Alopecia areata Social History Tobacco Use Types Packs/Day Years Used Date Smoking Tobacco: Never Smokeless Tobacco: Never Sex and Gender Information Value Date Recorded Sex Assigned at Not on file Gender Identity Not on file Sexual Orientation Not on file documented as of this encounter Progress Notes * Didier Centeno MD - 07/11/2017 4:00 PM EDT Images from the original note were not included. DEPARTMENT DERMATOLOGY AT [facility] Dermatology [facility] [address] [facility] [address] FOLLOW-UP Chief Complaint: Alopecia areata f/u - new spot History of Present Illness Melissa BARAJAS is a 41 y.o. female. History of alopecia areata who reports a new patch on the scalp noticed about May 2017. No symptoms. Never been treated. Interval [...] hiatus. Answered all questions. Patient elects ILK. ? Total 1 patch [10 injections] treated with Kenalog 10mg/ml [Lot # [id number] / EXP date ], total 1.0 ml after verbally discussing the disease and treatment options, Kenalog IL method, expectedresults/course and potential adverse effects, including pain, dyspigmentation, atrophy, and recurrence. Patient verbally agreed. Area prepped with alcohol. Blanching noted. Hemostasis achieved with drysol, as needed. Post-procedure pain 0/10. Patient tolerated well with no complications. Wound careinstructions provided. Follow-up: 4 weeks or return to clinic prn for new suspicious lesions or if changes/symptoms in existing lesions develop. Note initiated by MYRIAM HAND has performed the documentation for this encounter in the presence of and acting as a scribe for Dr. Centeno. I performed the above scribed service and agree with the accuracy of the documentation in this encounter. Dideir Centeno MD FAAD Section of Dermatology [facility] documented in this encounter Plan of Treatment Upcoming Encounters Date Type Department Care Team (Late st Contact Info) Description 05/22/2024 4:45 PM EDT Office Visit Dermatology at [facility] [address] [place] [address] Didier Centeno MD [address] [facility] [place] [address] documented as of this encounter Visit Diagnoses Diagnosis Alopecia areata documented in this encounter Administered Medications Inactive Administered Medications - up to 3 most recent administrations Medication Order MAR Action Action Date Dose Rate Site triamcinolone acetonide (KENALOG) injection 10 mg 10 mg, Intra-Lesional, ONCE, 1 dose, On Mon07/11/17 at 1630, Routine Given 07/11/2017 4:06 PM EDT 10 mg documented in this encounter Care Teams [address] [employer] Relationship Specialty Start Date End Date Laquita Hernandez MD PCP - General Pediatrics 12/06/16 07/28/20 documented as of this encounter
--- OUTSIDE RECORDS SUMMARY | 2024-04-12 00:32 | XMS_ITS | Encounter Summary ---
Author Organization [facility] Address [facility] [place] [address] Care Team Providers Care Associate Buyer Name Role Phone None Primary Care Provider Unavailabl e Reason for Visit * Reason Onset Date Comments Research 04/27/2022 Encounter Details Date Type Department Care Team (Late st Contact Info) Description 04/27/2022 Notes Only Dermatology at [facility] [address] [place] [address] Mayte Jarrtet MD [facility] [address] [place] [address] Research Social History Tobacco Use Types Packs/Day Years Used Date Smoking Tobacco: Never Smokeless Tobacco: Never Sex and Gender Information Value Date Recorded Sex Assigned at Not on file Gender Identity Not on file Sexual Orientation Not on file documented as of this encounter Progress Notes * Mayte Jarrett - 04/27/2022 5:42 PM EST RESEARCH STUDY VISIT PROTOCOL: TARGET-DERM A 5-year Longitudinal Observational Study of Patients Undergoing Therapy for Immune-Mediated Inflammatory Skin Conditions Velos #: [id number] PI: Rory Foster MD Sub-I: Anurag Ruiz MD, Mirian Chandra MD, Didier Centeno MD, Violetta Orozco MD, Dione Aaron MD, Stephane Garg MD, Avinash Fleming MD, Katina Almazan MD Subject #: [id number] Visit: Screening/Month 0 04/27/22 Melissa BARAJAS is a 46 y.o. female with history of Alopecia Areata. she was seen in the Dermatology clinic today for a screening visit for the above mentioned study. CONSENT Protocol was reviewed with Melissa BARAJAS by Mayte Jarrett including a description of study purpose, risks and benefits, voluntary nature of participation as well as study requirements, and length ofstudy duration. Optional portions of study addressed individually per consent form. Discussed confidentiality of patient's health information as specified in the consent form. she was advised that they may discontinue study involvement at any time and that refusing to participate or discontinuing treatment will not compromise the patient's access to treatment options or care. compensation for completion of optional study components reviewed. A copy of the written informed consent form was provided to Melissa Ellis ULISES for review. she was given adequate time to read all information, to ask questions and review concerns, all of which were answered to her satisfaction. Melissa BARAJAS verbalized her understanding of the study details, the risks and benefits of the study, and what would be expected of her while participating. The informed consent document was signed and dated by the subject and Mayte Jarrett prior to any study procedures being conducted. A copy of the signed consent form was given to Melissa BARAJAS and the original copy was scanned into [facility] and then retained with our source documents. Demographics: female, 46 y.o., White. Born 1975. Eligibility: The following inclusion and exclusion criteria were reviewed by Dr. Fleming after informed consent was obtained. He confirmed eligibility before moving forward in the study and performing any study procedures. Inclusion Criteria: 1. Adults and children (all ages) that have been prescribed any dermatologic treatment for a physician-confirmed IMISC 2. Patient has plans for future visits at the site for continued management of IMISC Exclusion Criteria: 1. Inability to provide written informed consent 2. Participation in an interventional study or trial using a systemic IMISC therapy at the time of enrollement. Patients may be enrolled in Target-Derm once participation in the trial has ended. Note: patient may be enrolled in other registeries or studies where IMISC treatment outcomes are observed and/or reported (such as center-based registries). And patient is also permitted to participate catia topical study. Although patient has mild disease today, she and her provider Dr. Centeno have reported a history of moderate to severe disease in the past. Physician assessments: Alopecia Areata Physician Assessments were completed by Dr. Centeno Biospecimen: Subject did consent to tape stripping, and samples were Subject opted for saliva sample. However due to our location and time restraints, specimen was not collected today and will be done at Melissa BARAJAS's next visit. Mayte Jarrett MD, MS Research Fellow - Dermatology documented in this encounter Plan of Treatment Upcoming Encounters Date Type Department Care Team (Late st Contact Info) Description 05/22/2024 4:45 PM EDT Office Visit Dermatology at [facility] [address] [place] [address] Didier Centeno MD [address] [facility] [place] [address] documented as of this encounter Visit Diagnoses Not on filedocumented in this encounter Care Teams Associate Buyer Relationship Specialty Start Date End Date None None PCP - General 04/09/21 documented as of this encounter
--- OUTSIDE RECORDS SUMMARY | 2024-04-12 00:32 | XMS_ITS | Encounter Summary ---
Author Organization [facility] [place] [address] Care Team Providers Care Associate Entertainment Editor Name Role Phone Laquita Hernandez MD Primary Care Provider [phone]- [phone] Encounter Details Date Type Department Care Team (Late st Contact Info) Description 12/17/2018 3:45 PM EDT Office Visit Dermatology [facility] [address] [place] [address] Didier Centeno MD [address] [facility] [place] [address] Alopecia areata (Primary Dx) Social History Tobacco Use Types Packs/Day Years Used Date Smoking Tobacco: Never Smokeless Tobacco: Never Sex and Gender Information Value Date Recorded Sex Assigned at Not on file Gender Identity Not on file Sexual Orientation Not on file documented as of this encounter Progress Notes * Didier Centeno MD - 12/17/2018 3:45 PM EDT Images from the original note were not included. Dermatology Dermatology at [facility] FOLLOW-UP Chief Complaint: Alopecia areata f/u - improving History of Present Illness Melissa Ellis ULISES is a 43 y.o. female History of [...] Surgical Family, and Social Histories Since Last Visit09/19/2018: No significant and pertinent interval changes. Skin [...] 4 treated with Kenalog 40 mg/ml [Lot# [id number] / Exp FEB 2020], total 1.2 ml after verballydiscussing the disease and treatment [...] new dermatitis. Note initiated by KODY Carrasco Lizzchas Worthy has performed the documentation for this encounter in the presence of and acting as a scribe for Dr. Centeno. I performed the above scribed service and agree with the accuracy of the documentation in this encounter. Didier Centeno MD FAAD Section of Dermatology [facility] documented in this encounter Plan of Treatment Upcoming Encounters Date Type Department Care Team (Late st Contact Info) Description 05/22/2024 4:45 PM EDT Office Visit Dermatology at [facility] [address] [place] [address] Didier Centeno MD [address] [facility] [place] [address] documented as of this encounter Visit Diagnoses Diagnosis Alopecia areata- Primary documented in this encounter Administered Medications Inactive Administered Medications - up to 3 most recent administrations Medication Order MAR Action Action Date Dose Rate Site triamcinolone acetonide (KENALOG-40) injection 40 mg 40 mg, Intra-Lesional, ONCE, 1 dose, On 12/17/18 at 1645, Routine Given 12/17/2018 4:30 PM EDT 40 mg documented in this encounter Care Teams Associate Entertainment Editor Relationship Specialty Start Date End Date Laquita Hernandez MD PCP - General Pediatrics 12/06/16 07/28/20 documented as of this encounter
--- OUTSIDE RECORDS SUMMARY | 2024-04-12 00:32 | XMS_ITS | Encounter Summary ---
Author Organization [facility] [place] [address] Care Team Providers Care Body Masker Name Role Phone None Primary Care Provider Unavailabl e Encounter Details Date Type Department Care Team (Late st Contact Info) Description 10/20/2004 Orders Only Obst[place] [address] Suraj Canela MD Social History Tobacco Use Types Packs/Day Years [...] 4:45 PM EDT Office Visit Dermatology at [facility] [address] [place] [address] Didier Centeno MD [address] [facility] [place] [address] documented as of this encounter Procedures Procedure Name Priority Date/Time Associated Diagnosis Comments SURGICAL PATHOLOGY REPORT Routine 10/27/2004 12:55 PM EDT documented in this encounter Results * Surgical Pathology Report (10/27/2004 12:55 PM EDT) Surgical Pathology Report [id number] ? Location: BP; BP18; A The signing pathologist has (i) examined the relevant preparation(s) for the specimen(s) and (ii) rendered or confirmed the diagnosis(es). . ?Pathology Surgical Pathology Final Report Clinical Information Specimen Submitted: A - Placenta. Clinical History: [place] - di placenta @ 351/7 weeks with 25% growth discordance. ??C.D.: growth discordance. Gross Description Labeled/Fixative: ? Labeled with the patient's name and medical record ?number, fresh. Qty/Size/Weight: ?Single, 34.0 x 19.5 x 2.1 cm, 576 g. Tissue Description: ? Single placental disc by an intervening ?membrane with 60% of the disc occupied by baby A ?and 40% of the disc occupied by baby B. ?? Baby A: ?Membranes: ?Garsia-pink and semitransparent. ?Cord: ? 52.0 x 1.5 cm, three vessels. ? Surface: ?No surface anastomoses. ??Trujillo-blue and clear. ?Maternal Surface: Red-brown and intact. ?Parenchyma: ? The specimen is serially sectioned at 0.5-cm ?to 1-cm intervals. ??Sections show dark red, spongy ?parenchyma. ?? Baby B: ?Membranes: ?Garsia-pink and semitransparent. ?Cord: ? 41.0 x 1.1 cm, three vessels. ? Surface: ?T[place]jillo-blue and clear. ??No surface anastomoses are ?identified. ?Maternal Surface: Red-brown and intact. ?Parenchyma: ? The specimen is serially sectioned at 0.5-cm ?to 1-cm intervals. ??Sections show dark red, spongy ?parenchyma. Intervening Membrane: ?? Garsia-pink and semitransparent. ??It inserts in the ?placental disc. Sections/Processi ng: ?Sections are submitted as follows: ??(1) baby A, ?cord and membrane; (2) baby A, surface; (3) baby A, maternal surface; (4) baby B, cord and membranes; (5) baby B, surface; (6) baby B, maternal surface; (7) shared membrane roll. ??(R7) ??aje/HSE Microscopic Description Slides reviewed, microscopic description not recorded. Diagnosis Twin placenta, cords and membranes: ?Diamniotic-mono chorionic twin placenta, negative for chorioamnionitis. ?Negative for morphological features of twin-twin transfusion syndrome. . Diagnosis CR-0 10/28/04 AVT 10/28/04 Verified by: ? Sarah Pagan MD ?Pathologist ?(Electronic Signature) The attending pathologist whose signature appears on this report has reviewed all diagnostic slides and has edited the gross and/or microscopic portion of the report in rendering the final pathologic diagnosis. [facility] 10/27/2004 12:5 5 PM EDT Suraj Canela MD PATHOLOGY/CYTOLOGY O RDERABLES [facility] documented in this encounter Visit Diagnoses Not on filedocumented in this encounter Care Teams Body Masker Relationship Specialty Start Date End Date None None PCP - General 04/09/21 documented as of this encounter
--- OUTSIDE RECORDS SUMMARY | 2024-04-12 00:32 | XMS_ITS | Encounter Summary ---
Author Organization [facility] [place] [address] Care Team Providers Care Tenter Feeder Name Role Phone None [facility] Encounter Details Date Type Department Care Team (Late st Contact Info) Description 07/28/2021 Telephone Dermatology at [facility] [address] [place] [address] Didier Centeno MD [address] [facility] [address] Social History Tobacco Use Types Packs/Day Years Used Date Smoking Tobacco: Never Smokeless Tobacco: Never Sex and Gender Information Value Date Recorded Sex Assigned at Not on file Gender Identity Not on file Sexual Orientation Not on file documented as of this encounter Miscellaneous Notes * Telephone Encounter - Mo Modi LPN - 07/30/2021 3:17 PM EDT Received the insurance benefit check back from [facility] about laser treatments for alopecia areata. [place] medicaid denied coverage for [facility] laser treatment of alopeica areata. Not a covered benefit / diagnosis. MO MODI LPN * Telephone Encounter - Mo Modi LPN - 07/28/2021 4:00 PM EDT PA and benefit check submitted today 07/28/21 to [facility]. Excimer uvb laser treatments ordered by Didier Centeno MD for alopecia areata. MO MODI LPN documented in this encounter Plan of Treatment Upcoming Encounters Date Type Department Care Team (Late st Contact Info) Description 05/22/2024 4:45 PM EDT Office Visit Dermatology at [facility] [address] [place] [address] Didier Centeno MD [address] [facility] [facility] [address] documented as of this encounter Visit Diagnoses Not on filedocumented in this encounter Care Teams Tenter Feeder Relationship Specialty Start Date End Date None None PCP - General 04/09/21 documented as of this encounter
--- OUTSIDE RECORDS SUMMARY | 2024-04-12 00:32 | XMS_ITS | Encounter Summary ---
Author Organization [facility] [place] [address] Care Team Providers Care Entry Clerk Name Role Phone Unavailable Primary Care Provider Unavailabl e Encounter Details Date Type Department Care Team (Late st Contact Info) Description 02/25/2021 4:15 PM EST Office Visit Dermatology [facility] [address] [place] [address] Didier Centeno MD [address] [facility] [address] Alopecia areata Social History Tobacco Use Types Packs/Day Years Used Date Smoking Tobacco: Never Smokeless Tobacco: Never Sex and Gender Information Value Date Recorded Sex Assigned at Not on file Gender Identity Not on file Sexual Orientation Not on file documented as of this encounter Progress Notes * Didier Centeno MD - 02/25/2021 4:15 PM EST Images from the original note were not included. DEPARTMENT OF DERMATOLOGY Medical Dermatology Clinic Provider: Didier Centeno MD FAAD at Dermatology [facility] Patient's preferred name Melissa PAST MEDICAL [...] here for follow-up. Tolerated ILK well. Possible improvementbut cannot see. Antecedent History: History of patch??of [...] alopecia of the midline occipital scalp; similar 25x 25 mm patch of non-scaring alopecia on the left parietal scalp. New villis and terminal hairs since last visit. Slight improvement. No atrophy. Recommend repeat ILK; reviewed major risks of skin atrophy. Answered all questions. Joint decision to treat with Kenalog ?? Total 3 sites treated with Kenalog 10mg/ml [Lot# [id number]/ Exp APR 2022], total 1.5 ml after [...] dermatitis. [] Recall placed [] Forwarded to mine safety director [x] Patient scheduled before exiting Scribe attestation: Shanique Rosales LPN has performed the documentation for this encounter in the presence of and acting as a scribe for MD LAWSON Regalado. I performed the above scribed service and agree with the accuracy of the documentation in this encounter. Reviewed and signed by: MD LAWSON Regalado Dermatology [facility] documented in this encounter Plan of Treatment Upcoming Encounters Date Type Department Care Team (Late st Contact Info) Description 05/22/2024 4:45 PM EDT Office Visit Dermatology at [facility] [address] [place] [phone] Didier Centeno MD [address] [facility] [address] documented as of this encounter Visit Diagnoses Diagnosis Alopecia areata documented in this encounter
--- OUTSIDE RECORDS SUMMARY | 2024-04-12 00:32 | XMS_ITS | Encounter Summary ---
Author Organization [facility] Address [facility] [place] [address] Care Team Providers Care C Iron Worker Name Role Phone Davidson Lpoez MD Primary Care Provider [phone] Encounter Details Date Type Department Care Team (Late st Contact Info) Description 06/16/2010 6:54 PM EDT - 06/16/2010 11:59 PM EDT Hospital [place] [address] Fernanda Morton MD [address] [place] [id number] Discharge Disposition: Home Social History Tobacco Use Types Packs/Day Years Used Date Smoking Tobacco: Never Assessed Sex and Gender Information Value Date Recorded Sex Assigned at Not on file Gender Identity Not on file Sexual Orientation Not on file documented as of this encounter Medications at Time of Discharge Medication Sig Dispensed Refills Start Date End Date Miconazole Powd apply to skin area, Misc, Twice daily 11/11/2004 12/06/2016 multivitamin (DAILY MULTIPLE) tablet 11/08/2004 12/06/2016 cimetidine (TAGAMET) 400 mg tablet 11/08/2004 12/06/2016 documented as of this encounter Plan of Treatment Upcoming Encounters Date Type Department Care Team (Late st Contact Info) Description 05/22/2024 4:45 PM EDT Office Visit Dermatology at [facility] [address] [place] [address] Didier Centeno MD [address] [facility] [place] [address] documented as of this encounter Procedures Procedure Name Priority Date/Time Associated Diagnosis Comments PITCH GATHERER CYTOLOGY FINAL REPORT Routine 06/16/2010 8:00 PM EDT documented in this encounter Results * PITCH GATHERER CYTOLOGY FINAL REPORT (06/16/2010 8:00 PM EDT) Measurement Technician Cytology Final Report ? [facility] ? Provider: ?? JESSICA FRANKLIN ? Pt. Name: ?? JUAN GOLDBERG ? Acc #: ?[id number] ?Pt. ? Col Date: ?? 06/16/2010 ? /Sex: ?1975,(34 years),Female ? Rec Date: ?? 06/21/2010 ? LOC: ?[facility] ? CYTOPATHOLOGY: ??PITCH GATHERER ? ---Adequacy--- ? Specimen submitted is satisfactory. ? Endocervical component present. ? ---Cytopathologic Diagnosis--- ? NORMAL ? Negative for Intraepithelial Lesion or Malignancy (NILM). ? 06/24/10 ?? Screened by: ??[facility] ? 06/24/10 ?? Verified by: ??Brennan PARK(ASCP), Charlene Davidson - Truss Assembler ? ---Clinical Information--- ? Hormones?: ?No ? Hysterectomy?: ?No ?: ?No ?: ?No ? I.U.D.?: ?No ? Pelvic Radiation: ? No ? Prior PITCH GATHERER Therapy?: ? No ? Hist Abnl Pap/Biopsy?: [...] ??For further ? information please contact the [facility]. ? [facility] ? Provider: ?? JESSICA FRANKLIN ? Pt. Name: ?? JUAN GOLDBERG ? Acc #: ?[id number] ?Pt. ? Col Date: ?? 06/16/2010 ? /Sex: ?1975,(34 years),Female ? Rec Date: ?? 06/21/2010 ? LOC: ?[facility] ? CYTOPATHOLOGY: ??PITCH GATHERER ? Reference: ??Abendroth CS. ??Bearing Ring Assembler of Pap Smear Results. ??In: ? Silviano BS, Noel HH, ed. ??The Pap Smear. ??[place]: ??Bro, 2002: ? 71-77. CERNER MILLENNIUM 06/16/2010 8:00 PM EDT Jessica Malonearnoldo [facility] MEL VIERA documented in this encounter Visit Diagnoses Not on filedocumented in this encounter Care Teams C Iron Worker Relationship Specialty Start Date End Date Davidson Lopez MD [address] [place] [id number] PCP - General 01/19/10 12/05/16 documented as of this encounter
--- OUTSIDE RECORDS SUMMARY | 2024-04-12 00:32 | XMS_ITS | Encounter Summary ---
Author Organization [facility] [place] [address] Care Team Providers Care Social Media Sr Strategy Manager Name Role Phone None Primary Care Provider Unavailabl e Reason for Visit * Reason Comments Alopecia Follow-up Encounter Details Date Type Department Care Team (Late st Contact Info) Description 10/04/2021 4:15 PM EDT Office Visit Dermatology [facility] [address] [place] [address] Didier Centeno MD [address] [facility] [place] [address] Alopecia areata; Benign nevus Social History Tobacco Use Types Packs/Day Years Used Date Smoking Tobacco: Never Smokeless Tobacco: Never Sex and Gender Information Value Date Recorded Sex Assigned at Not on file Gender Identity Not on file Sexual Orientation Not on file documented as of this encounter Progress Notes * Didier Centeno MD - 10/04/2021 4:15 PM EDT Images from the original note were not included. DEPARTMENT OF DERMATOLOGY Medical Dermatology Clinic Provider: Didier Centeno MD FAAD at Dermatology [facility] Patient's preferred name Melissa? PAST MEDICAL HISTORY [...] y.o. and here for the following: ??? Alopecia Areata follow up. Currently not treating at home and only doing the ILK injections. She feels one of the spots has gotten better and the other might have gotten worse. Hard to tell as itis in the back of her head. Patient denies any scalp itching. ??? Mole on the chest that changed after being in the sun a couple of weeks ago. During the last week it has been itchy but there is a sun burn in the area. Medications: Reviewed in eD-H Allergies: Reviewed in eD-H Skin Examination Standby: Suzan Stout RN Well developed, well-nourished in no apparent distress, alert and oriented to time, person, place and situation. Focused examination of the skin of the scalp significant for the following: Exam Findings/Assessment/Plan Alopecia Areata 5 x 3 cm non scarring alopecia patch with 50% new hair terminal hair on the midline occipital scalp. Resolved with 2-3cm terminal hairs on left lower frontal scalp. ?? Much improvement on the occipital scalp but with persistent area at the lower pole. ?? Recommend repeat intra lesional Kenalog and consider, ??topical or oral??JESSIE??inhibitor.?Limiteddata on topical Jessie inhibitor such as tofacitinib 2% showing some efficacy during use but recurrence when stopping. ??Ruxolitinib 1.5% showed no significant effect on alopecia areata and a 2019 study. ?? Discussed clinical impression?and recommendations above. ??Discussed major risk of oral jacketedvision paring thromboembolism. ??Answered all questions. ??Patient elects repeat intralesional Kenalog and systemic Jessie inhibitors. Handouts on tofacitinib and baricitinib given to the patient. ? Occipital scalp??treated with Kenalog 20??mg/ml [Lot#??[id number] / Exp??JAN 2023], total??1 ml after verbally discussing the disease and treatment options, Kenalog IL method, expected results/course and potential adverse effects, including pain, dyspigmentation, atrophy, and recurrence. Patient verbally agreed. Area prepped with alcohol. Blanching noted. Hemostasis achieved with drysol, as needed. Post-procedure pain 0/10. Patient tolerated well with no complications. Wound care instructions provided. ?? Nevus Thick dark brown 7mm well-demarcated papule with cyst on the mid chest left of midline. Morphology reassuring for benign nevus. Recommend observation. ??? Return to clinic as needed for changes in color, size, shape or thickness or should bleeding orother symptoms occur. Patient agrees to plan. Follow-up: 6 weeks fu Alopecia. Return sooner as needed for suspicious lesion, new or worsening dermatitis. [] Recall placed [] Forwarded to acute dialysis registered nurse [] Patient scheduled before exiting Scribe attestation: Suzan Stout, RN has performed the documentation for this encounter in the presence of and acting as a scribe for MD LAWSON Regalado. I performed the above scribed service and agree with the accuracy of the documentation in this encounter. Reviewed and signed by: MD LAWSON Regalado Dermatology [facility] documented in this encounter Plan of Treatment Upcoming Encounters Date Type Department Care Team (Late st Contact Info) Description 05/22/2024 4:45 PM EDT Office Visit Dermatology at [facility] [address] [place] [address] Didier Centeno MD [address] [facility] [place] [address] documented as of this encounter Visit Diagnoses Diagnosis Alopecia areata Benign nevus Benign neoplasm of skin, site unspecified documented in this encounter Administered Medications Inactive Administered Medications - up to 3 most recent administrations Medication Order MAR Action Action Date Dose Rate Site triamcinolone acetonide (Kenalog-40) (40 mg/mL) injection 20 mg 20 mg, Intra-Lesional, ONCE, 1 dose, On 10/04/21 at 1715, Routine Given 10/04/2021 4:52 PM EDT 20 mg 20-Other (document in comment section) documented in this encounter Care Teams Social Media Sr Strategy Manager Relationship Specialty Start Date End Date None None PCP - General 04/09/21 documented as of this encounter
== END 2024-04-12 00:50 ==
LOC: DI 00:30
PROVIDERS: PCP Physician Assistant; Visit Provider Physician Assistant
DX: Z12.31 Encounter for screening mammogram for malignant neoplasm of breast (principal); R92.333 Mammographic heterogeneous density, bilateral breasts
CPT/HCPCS: 77063; 77067

== ENCOUNTER 2024-04-23 01:52 | Outpatient (CLI) | payer MEDICAID, SELFPAY ==
--- NOTE | 2024-04-23 | DI.US_ITS ---
Exam(s) US BREAST RT COMPLETE EXAM: US BREAST RT COMPLETE CLINICAL HISTORY: INCREASING SIZE NODULES UPPER QUAD RT BREAST R92.8 ABNL MAMMO FIBROGLANDULA TECHNIQUE: Ultrasound right breast performed using standard protocol. COMPARISON: US US BREAST LT COMPLETE from 09/21/2021 US US BREAST RT COMPLETE from 09/21/2021 MG MG MAMMO SCREENING from 04/12/2024 FINDINGS: Several cysts are noted, the largest is at the 10 o'clock position, 4 cm from the nipple, measuring 2 .0 x 1.0.5 cm. There are mildly dilated ducts in the subareolar region which appear less prominent w hen compared with the prior exam. No intraductal lesions are visualized. No solid masses, hypoechoic foci, areas of abnormal shadowing, or areas of skin thickening. IMPRESSION: No sonographically suspicious finding. BI-RADS Category 2 - Benign Findings Bilateral screening mammography recommended in 1 year. DATA REPOSITORY:
== END 2024-04-23 02:12 ==
LOC: DI 01:53
PROVIDERS: PCP Physician Assistant; Visit Provider Physician Assistant
DX: N60.11 Diffuse cystic mastopathy of right breast (principal)
CPT/HCPCS: 76642

== ENCOUNTER 2024-05-28 16:37 | Outpatient (CLI) | payer MEDICAID, SELFPAY ==
[2024-05-28 16:00] LABS: Abs Immature Grans 0.05 10^3/uL (0.0-0.06); Absolute Basophil Count 0.06 10^3/uL (0.0-0.2); Absolute Eosinophil Count 0.13 10^3/uL (0.0-0.7); Absolute Lymphocyte Count 2.22 10^3/uL (1.2-3.4); Absolute Monocyte Count 0.86 10^3/uL (0.1-0.8); Absolute Neutrophil Count 6.84 10^3/uL (1.2-6.7); Basophils % 0.6 %; Eosinophils % 1.3 %; HCT 44.5 % (36.0-46.0); HGB 15.2 g/dL (11.2-15.7); Immature Grans % 0.5 %; Lymphocytes % 21.9 %; MCH 33.5 pg (27.0-33.0); MCHC 34.2 % (32.0-36.0); MCV 98 fL (80-95); MPV 11.3 fL (8.0-11.0); Monocytes % 8.5 %; Neutrophils % 67.2 %; Platelet Count 319 10^3/uL (130-400); RBC 4.54 10^6/uL (3.93-5.22); RDW 11.9 % (11.7-14.6); RDW-SD 42.8 fL; WBC 10.16 10^3/uL (4.4-10.8)
[2024-05-28 16:44] LABS: ALT 26 U/L (14-59); AST 19 U/L (15-37); Albumin 3.9 g/dL (3.4-5.0); Alkaline Phosphatase 66 U/L (46-116); Anion Gap 11.8 mmol/L (3-11); BUN 20 mg/dL (7-18); Bilirubin, Total 0.4 mg/dL (0.2-1.0); CO2 25.2 mmol/L (21.0-32.0); CREATININE 0.7 mg/dL (0.55-1.02); Calcium 9.6 mg/dL (8.5-10.1); Chloride 99 mmol/L (98-107); Glucose 96 mg/dL (74-106); Potassium 3.8 mmol/L (3.5-5.1); Sodium 136 mmol/L (136-145); Total Protein 7.7 g/dL (6.4-8.2)
[2024-05-28 17:58] LABS: Calculated LDL 122 mg/dL (<100); Cholesterol 244 mg/dL (<200); HDL Cholesterol 91 mg/dL (>or=50); Triglyceride 155 mg/dL (<150)
[2024-05-30 11:53] LABS: TB Interpretation Negative (Negative)
== END 2024-05-28 16:38 | disposition home or self-care (01) ==
LOC: LBO 16:38
PROVIDERS: PCP Physician Assistant; Visit Provider Dermatology
DX: Z79.899 Other long term (current) drug therapy (principal)
CPT/HCPCS: 36415; 80053; 80061; 85025; 86480